=== PATIENT | male | born 1940 | race Caucasian/White ===

== ENCOUNTER → 2023-12-30 09:43 | Outpatient (REF) | payer MEDICARE, SELFPAY | LOC: HWRAD 09:43 | PROVIDERS: ATTENDING PHYSICIAN Specialist; FAMILY PHYSICIAN Family Medicine | DX: N28.1 Cyst of kidney, acquired (principal); N18.31 Chronic kidney disease, stage 3a | CPT/HCPCS: 76770 ==

== ENCOUNTER 2025-04-05 10:20 | Outpatient (RCR) | payer MEDICARE, SELFPAY | END 2025-04-05 23:59 | disposition home or self-care (01) | LOC: CRHB 10:20 | PROVIDERS: ATTENDING PHYSICIAN Transplant Surgery | DX: I50.22 Chronic systolic (congestive) heart failure (principal) | CPT/HCPCS: G0422; G0423 ==

== ENCOUNTER 2025-04-06 14:41 | Inpatient (IN) | payer MEDICARE, SELFPAY ==
[2025-04-06] VITALS (33 sets, daily range): BP systolic 61–146; BP diastolic 40–124; BMI 24.0
--- NOTE | 2025-04-06 09:09 | ED.GENMED ---
History of Present Illness
General
Chief Complaint: Heart Rate Problem
Source: patient
Exam Limitations: none
Time Seen by Provider: 04/06/25 09:06
Nursing documentation reviewed up to this point in time: agreed with
History of Present Illness
History of Present Illness:
The patient is a pleasant 85-year-old man with a past medical history of atrial fibrillation with a pacemaker defibrillator, who reports 2 to 3 days of increased work of breathing, especially on exertion. Patient reports he has gained about 6 to 7
pounds over the last week and has barely eaten. Patient reports feeling full early. He denies chest pain. He reports increased swelling of both of his legs. Patient reports that he is followed by [facility] and is due to have a right sided
cardiac catheterization this Thursday. Patient reports that yesterday he went to cardiac rehab and noticed that his heart rate became extremely elevated and it took about 20 minutes for his heart rate to come down. Patient reports that overall, his
heart rate has been elevated and it feels as though his heart is pounding.
Past History
Past History
ED Past Medical History: Arrthythmia (Paroxysmal atrial fibrillation anticoagulated on warfarin), CAD and CHF
ED Past Surgical History: Cardiac (CABG x3 July 2016 at [facility])
Social History
Tobacco: Non-smoker
Alcohol: None
Drug: None
Personal:
Living: with family
Employment: Other
Family History
Family History: Other
Review of Systems
Review of Systems
Allergies reviewed?: Yes
All Other Systems: ROS reviewed and negative except as documented in HPI and ROS
Constitutional: Reports no symptoms
EENT: Reports no symptoms
Respiratory: Reports trouble breathing
Cardiac: Reports palpitations
ABD/GI: Reports no symptoms
: Reports no symptoms
Musculoskeletal: Reports edema
Skin: Reports no symptoms
Neurological: Reports no symptoms
Endocrine: Reports no symptoms
Hematologic/Lymphatic: Reports no symptoms
Psychiatric: Reports no symptoms
Phy Exam
Physical Exam
Physical Exam:
Physical Exam
General: no apparent distress, not acutely ill
Neck: supple. no meningeal signs. normal psoterior pharynx
Heart: Irregular, tachycardic
Lungs: no acute respiratory distress. Left lower lobe crackles. No wheezing
Abdomen: normal bowel sounds. not tender. no CVAT
Neuro: alert and oriented. no focal neurological deficits
Skin: no rash
Psychiatric: well kept. interactive and cooperative
Extremities: 1+ pitting edema in bilateral ankles up to knees bilaterally. Negative Homans' sign.
Course
Orders/Labs/Results
Orders:
Orders
04/06/25 08:55
Electrocardiogram (*1) Urgent
Reason for Study: Tachycardia
EKG- Treatment ONCE
04/06/25 09:29
CR Chest Portable - 1 View Urgent
Comment:
Reason For Exam: SOB
Reason Study Needs to be Portable: Patient Unstable
04/06/25 09:47
Complete Blood Count/With Diff Urgent
Comprehensive Metabolic Panel Urgent
NT-proBNP Urgent
Comment: ADD ON
PTT Urgent
Prothrombin Time Urgent
Troponin I Urgent
04/06/25 10:05
Add On- LAB Urgent
Tests Added?: Pro-BNP
04/06/25 10:49
Calcium Gluconate 1,000 mg IV NOW STA
Dextrose 50%-Water [Dextrose 50% Syringe] 12.5 grams IV [id number] PRN
Dextrose 50%-Water [Dextrose 50% Syringe] 25 grams IV NOW STA
Insulin Human Regular [Novolin R] 10 units IV NOW STA
Bedside Glucose PRE IV Insulin- HyperK+ NOW
04/06/25 12:19
Bedside Glucose POST IV Insulin- HyperK+ Q1HX2,Q2HX2
04/06/25 13:19
Potassium Urgent
Comment: draw 2 hours after regular insulin IV administration
Abnormal Lab Results
04/06/25
09:47
RBC 4.45 L 10^6/uL
(4.70-6.10)
MCV 98.0 H fL
(80.0-94.0)
MCH 32.8 H pg
(27.0-31.0)
RDW 15.6 H %
(11.5-14.5)
Plt Count 98 L 10^3/uL
(130-400)
MPV 11.2 H fL
(7.4-10.4)
Absolute Lymphs (auto) 0.6 L 10^3/uL
(1.2-3.4)
Absolute Monos (auto) 0.7 H 10^3/uL
(0.1-0.6)
Neutrophils % 79.5 H %
(42.2-75.2)
Lymphocytes % 9.3 L %
(20.5-51.1)
Monocytes % 10.0 H %
(1.7-9.3)
PT 33.0 H Sec
(11.4-14.6)
APTT 41.4 H Sec
(23.4-35.0)
Sodium 126 L mmol/L
(135-145)
Potassium 5.7 H mmol/L
(3.5-5.1)
Chloride 96 L mmol/L
(98-107)
BUN 43 H mg/dl
(9-20)
Creatinine 2.3 H mg/dL
(0.7-1.3)
Total Bilirubin 1.6 H mg/dl
(0.2-1.3)
AST 74 H U/L
(17-59)
Alkaline Phosphatase 162 H U/L
(38-126)
Troponin I 0.376 H* ng/ml
Total Protein 6.0 L g/dl
(6.3-8.2)
04/06/25 09:47
Vital Signs
Initial and Last Documented VS:
Initial Vital Signs
Temp Pulse Resp Pulse Ox
98.0 F 42 16 96
04/06/25 09:02 04/06/25 09:02 04/06/25 09:02 04/06/25 09:02
Last Documented Vital Signs
Temp Pulse Resp BP Pulse Ox
98.2 F 121 20 122/68 99
04/06/25 09:02 04/06/25 09:15 04/06/25 09:15 04/06/25 09:05 04/06/25 09:34
MDM/Problems Addressed
Differential Diagnosis Includes:
A-fib with RVR, a flutter with RVR, acute on chronic CHF, acute on chronic coronary artery disease
MDM/Problems Addressed:
Patient presents with feelings of a rapid heart rate, increased work of breathing, and bilateral leg swelling
Chronic conditions affecting care: Arrhythmia
Acute Exacerbation and/or Progression of Chronic Illness:
Patient may have acute exacerbation of A-fib with RVR, progressing to CHF.
Acute Exacerbation and/or Progression of Chronic Illness: Cardiomyopathy and Arrhythmia
*Radiology
Radiology exam reviewed: preliminary read by ED provider (Chest x-ray read by me. Cardiomegaly. Possible left lower lobe effusion)
*Pulse Oximetry
SaO2: 96
Oxygen Mode of Delivery: Room air
Patient hypoxic: no
Comment: Patient is not hypoxic.
*EKG
Interpreted by ED Provider?: Yes
Interpretation: abnormal
Comparison EKG: changes noted
Rate: tachycardiac
Rhythm: ventricular paced
Crowder: left axis deviation
Interval: normal interval
QRS Pattern: wide non-specific
Ischemia: non-specific ST changes
*Chief Nursing Executive Interpretation
Rate: tachycardiac
Interpretation: abnormal
Rhythm: ventricular paced
*Critical Care Note
Total Time (30-74mins, 75-104mins- exclusive of procedures): 46 minutes
comment:
46 minutes critical care given to the patient including reviewing his interrogation report from his pacemaker defibrillator, reviewing his lab work, EKG, frequent reassessments of his heart rate and blood pressure, as well as speaking to the
hospitalist, patient and
Data Reviewed
Review of Other/Old Records Reveals: Testing (Cardiac catheterization 2016 showed three-vessel disease)
Source: patient and spouse
Patient Management
Social determinants of health affecting care: Living situation and Strong social support
Discussion with other providers: Hospitalist and Other (Sherri Slaughter)
Escalation/DeEscalation of care consider admission/obs:
Patient presents with acute on chronic CHF likely due to atrial tachycardia, as well as acute hyponatremia, acute hyperkalemia and acute renal failure.
Cardiology agreed to see patient on consult.
ED Attending Note
-
Portions of this chart may have been created with voice recognition software.� Occasional wrong word or��sound alike� substitutions may have occurred due to the inherent limitations of voice recognition software.
Discharge Plan
Departure
Patient Disposition: Admit
Date of Disposition: 04/06/25
Time of Disposition: 10:48
Admit to: Telemetry
Presentation/result/management discussed w/ accepting MD/DO: Hospitalist
Patient with high blood pressure during this ER visit?: No
Condition: Fair
Covid-19: Not Applicable
Discharge Problem:
Atrial tachycardia, Acute on chronic systolic CHF (congestive heart failure), Acute hyponatremia, Acute hyperkalemia, Acute renal failure
Prescriptions:
No Action
atorvastatin 80 MG tablet
80 mg PO QPM
amiodarone [Pacerone] 200 MG tablet
100 mg PO DAILY
warfarin [Jantoven] 3 MG tablet
1.5 mg PO SuTuThSa@1900
warfarin [Jantoven] 3 MG tablet
3 mg PO MOWEFR@1900
metoprolol succinate 25 MG tablet extended release 24 hr
25 mg PO BID
cholecalciferol (vitamin D3) [Vitamin D3] 1,000 UNIT capsule
1,000 unit PO DAILY@1200
eplerenone 25 MG tablet
25 mg PO DAILY@1200
doxycycline hyclate 50 mg Capsule
50 mg PO DAILY@1200
acetaminophen [Tylenol Extra Strength] 500 mg Tablet
500 mg PO TID
levothyroxine [Synthroid] 75 mcg Tablet
75 mcg PO DAILY
melatonin 5 mg Tablet
5 mg PO HS
Jardiance 10 mg Tablet
10 mg PO DAILY@1200
sacubitril-valsartan [Entresto] 97-103 mg Tablet
1 tab PO BID
aspirin 81 mg Tablet,Delayed Release (Dr/Ec)
81 mg PO DAILY
Interventions
Interventions:
*Risk Screen - Suicide Last Done: 04/06/25 09:02
*Neglect/Abuse Screening Last Done: 04/06/25 09:02
*ED- Fall Risk Assessment Last Done: 04/06/25 09:02
*ED COVID-19 Vaccine History Last Done: 04/06/25 09:02
ED- Cardiac Assessment Last Done: 04/06/25 09:34
ED- Pulmonary Assessment Last Done: 04/06/25 09:34
Discharge Date and Time
Print Language: SLOVENIAN
[2025-04-06 10:04] LABS: Hematocrit 43.6 % (39.0-52.0); Hemoglobin 14.6 g/dL (13.0-18.0); Mean Corp Hgb Conc. 33.5 g/dL (33.0-37.0); Mean Corpuscular Volume 98.0 fL (80.0-94.0); Nucleated Red Blood Cells % 0 % (-); Red Cell Dist. Width 15.6 % (11.5-14.5)
[2025-04-06 10:06] LABS: APTT 41.4 Sec (23.4-35.0); INR 3.19; PT 33.0 Sec (11.4-14.6)
[2025-04-06 10:11] LABS: ALT (SGPT) 39 U/L (0-50); AST (SGOT) 74 U/L (17-59); Albumin 4.0 g/dl (3.5-5.0); Alkaline Phosphatase 162 U/L (38-126); Blood Urea Nitrogen 43 mg/dl (9-20); Calcium 10.0 mg/dl (8.4-10.2); Carbon Dioxide 22 mmol/L (22-30); Chloride 96 mmol/L (98-107); Glucose 88 mg/dl (70-99); Potassium 5.7 mmol/L (3.5-5.1); Sodium 126 mmol/L (135-145); Total Protein 6.0 g/dl (6.3-8.2); eGFR 27.32
[2025-04-06 10:18] LABS: Platelet Count 98 10^3/uL (130-400)
[2025-04-06 10:21] LABS: Troponin I 0.376 ng/ml
[2025-04-06 11:05] LABS: Glucose - Point of Care 75 mg/dl (70-99)
--- NOTE | 2025-04-06 11:05 | CON.CAR ---
Addendum entered and electronically signed by Sherri Slaughter MD 04/06/25 14:07:
I saw and evaluated the patient, and I provided the substantive portion of the medical decision making.
I reviewed and agree with the note by Ora Power and it accurately reflects our care.
I personally performed the medical decision making of the this encounter and my assessment and plan is below:
85 y/o male (follows with Dr. Francie Gunn heart failure and EP Dr. 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 Rodriges) who is here for evaluation of worsened exercise tolerance and
abnormal heart rhythm. He is in cardiac rehab and has had a decline in his exercise tolerance, he is undergoing evaluation with Dr Moses and initial plan was for RHC on Thursday. However, at CR yesterday HR was elevated and given his history of
af he called his team at [facility]. Interrogation this morning showed arrhythmia and he was directed to the ED. He also reports poor appetite and weight gain of 5lbs despite poor po intake.
ON exam he is dyspneic with conversation but lying flat. He has bibasilar rails. RRR no murmur rubs or gallops. Mild bilateral 1+ pitting edema is noted. EKG on arrival showed V paced set at 110 bpm.
[facility] interrogation was reviewed showed atrial tachycardia with bi -V pacing.
Test chest x-ray showed small left pleural effusion. Possible left upper lobe round pneumonia or mass, follow-up recommended.
Left concerning for hyponatremia and 126 potassium 5.7 BUN 43 creatinine 2.3 last check in 2019 was 1.3. AST elevated to 74 troponin 0.376 proBNP 25255 INR 3.19
Overall, he presents in acute heart failure exacerbation with known reduced Doose ejection fraction of 29%. This may be precipitated by recurrent atrial arrhythmias. During our examination he converted to sinus rhythm with PACs. Will arrange for
right heart catheterization today to help guide our diuresis given his severe exacerbation in the setting of hyponatremia, hyperkalemia and acute kidney injury. This will also allow us to assess whether or not I inotropes will be needed for
successful diuresis likely his acute kidney injury is due to acute heart failure exacerbation and hopefully will improve with diuresis. In regards to his arrhythmias: Atrial tachycardia/flutter seen on device interrogation. He was taking low-dose
amiodarone. Will need to be reloaded. Will continue with warfarin and keep INR between 2 and 3.
This is a high risk situation with severe systolic dysfunction and acute kidney injury and electrolyte abnormalities.
I did reach out to his doctor at [facility] Dr. Sosa and update him. He was agreeable with our plan.
Original Note:
Consultation
Consultation Request
Date/Time Consultation Requested: 04/06/25 1045
Date/Time Consultation Performed: 04/06/25 1100
Requesting Provider: Dr. Vora
Performing Provider: Ora SALAZAR for Dr. Slaughter
Reason for Consultation: CHF, AFIB
Medical History
-
Chief Complaint: SOB
History of Present Illness:
85 y/o male (follows with Dr. Sosa- [facility] A heart failure and EP Dr. 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 Rodriges) who is here for evaluation of worsened KENNEDY. Briefly, since January,
he has been feeling like he is unable to do his normal treadmill routine and has been going downhill ever since. He was scheduled for a RHC at [place] upcoming. Over the past few days, he has noticed his KENNEDY is worse such that he cannot even walk
through the kitchen without being SOB. No orthopnea. Has had 5 lb weight gain and LE is noted. He also noticed his HR was fast at cardiac rehab and on home monitor as well. On arrival, he is seen to be in AFIB with RVR. He laso has hyponatremia,
hyperkalemia, and TAHIRA. He is in no distress at the time of my assessment. His is at bedside. She is a volunteer here.
Past Medical History
Past Medical History: Arrhythmias, CAD, CHF and Other (as above)
Social History
Personal:
Living: With Family
Family History
Family History: Reviewed & Not Pertinent
Allergies / Home Medications
Allergy/AdvReac Type Severity Reaction Status Date / Time
No Known Allergies Allergy Verified 10/19/18 11:20
�Medication �Instructions �Recorded �Confirmed �Type
amiodarone 200 mg tablet (Pacerone) 100 mg PO DAILY 12/01/17 04/06/25 History
atorvastatin 80 mg tablet 80 mg PO QPM 12/01/17 04/06/25 History
cholecalciferol (vitamin D3) 25 1,000 unit PO DAILY@119912/01/17 04/06/25 History
mcg (1,000 unit) capsule (Vitamin
D3)
eplerenone 25 mg tablet 25 mg PO DAILY@119912/01/17 04/06/25 History
metoprolol succinate 25 mg 25 mg PO BID 12/01/17 04/06/25 History
tablet,extended release 24 hr
warfarin 3 mg tablet (Jantoven) 1.5 mg PO SuTuThSa@1900 12/01/17 04/06/25 History
warfarin 3 mg tablet (Jantoven) 3 mg PO MOWEFR@1900 12/01/17 04/06/25 History
acetaminophen 500 mg tablet 500 mg PO TID 04/06/25 04/06/25 History
(Tylenol Extra Strength)
aspirin 81 mg tablet,delayed 81 mg PO DAILY 04/06/25 04/06/25 History
release
doxycycline hyclate 50 mg capsule 50 mg PO DAILY@119904/06/25 04/06/25 History
empagliflozin 10 mg tablet 10 mg PO DAILY@119904/06/25 04/06/25 History
(Jardiance)
levothyroxine 75 mcg tablet 75 mcg PO DAILY 04/06/25 04/06/25 History
(Synthroid)
melatonin 5 mg tablet 5 mg PO HS 04/06/25 04/06/25 History
sacubitril 97 mg-valsartan 103 mg 1 tab PO BID 04/06/25 04/06/25 History
tablet (Entresto)
Review of Systems
-
History Source: Patient
All other systems: Negative unless noted
Constitutional: Weight Gain
Respiratory: Trouble Breathing
Musculoskeletal: Edema
Physical Exam
Vital Signs
Temp Pulse Resp BP Pulse Ox
98.2 F 121 20 122/68 99
04/06/25 09:02 04/06/25 09:15 04/06/25 09:15 04/06/25 09:05 04/06/25 09:34
Lab Results
04/06/25 09:47
04/06/25 13:19
Troponin I 0.376 ng/ml H* 04/06/25 09:47
Tlu-H-Xbududkkyrg Pept 86986 pg/ml 04/06/25 09:47
Physical Exam
General: Well Developed, Well Nourished and No Apparent Distress
HEENT: Normocephalic and Anicteric
Respiratory: Crackles (left base)
Cardiac: Irregular Rhythm
Musculoskeletal: Edema (mild BLE edema)
Skin: Warm
Neuro: AO x 3
Psych: Calm
Impression / Plan
-
Acjoa-nm-lnrleup HFrEF:
-high risk diagnosis with addition of TAHIRA and electrolyte abnormalities as below, in this patient with advanced CHF
-will need IV diuresis, which requires intensive monitoring. Plan was for RHC and we will do it here today to help us guide diuresis plan.
-update echo
ICM EF 29%:
-follows with advanced CHF at [place]
-INTELLIGENCE SPECIALIST-D in place (BS)- interrogation done in ER - see below
-on BB, SGLT2I, ARNI, and MRA
PAF:
-device interrogation reviewed with EP and shows atrial tachycardia/poss aflutter. Now back in SR without intervention.
-on amiodarone 100 mg PO daily as OP. Will will reload with IV amiodarone. This requires intensive monitoring.
-reports he has not had any low INR's in past few months (gets them about once per month)- managed at [facility]. On warfarin- continue this. INR 3.19 today.
Hyperkalemia:
-being treated in ED
Hyponatremia:
-needs monitoring with diuresis
TAHIRA on CKD:
-last OP creatinine in [facility] : 1.7
-Dr. Rodriges is moss bleacher
-RHC with diuresis as above
CAD with hx CABG:
-no CP
-continue ASA, statin, BB
Abnormal CXR:
-CXR: Small left pleural effusion. Subtle rounded opacity in the left upper lobe, round pneumonia or mass. Follow-up recommended. Management per IM.
Abnormal troponin:
-suspect acute, non-ischemic myocardial injury in setting of CHF, renal dysfunction
-can trend to peak and check echo
-no CP
Data Reviewed
-
EKG: Tracing Personally Visualized and interpreted (tachycardia 110 BPM, irregular, v-paced/wide complex- suspected AFIB with RVR- to review with MD)
Radiology: Report Reviewed by me (CXR: Small left pleural effusion. Subtle rounded opacity in the left upper lobe, round pneumonia or mass. Follow-up recommended.)
Medical Tests (Nuc Med, Echo etc): Report Reviewed by me (Echo 10/28/24: EF 29%)
Labs: Labs Reviewed by me
Old Records: Reviewed (Dr. Moses note January 06, 2025- where I got much of PMH (see above))
[2025-04-06] MEDS: CALCIUM GLUCONATE 1000 MG IV (11:11)
[2025-04-06] MEDS: DEXTROSE 50% SYRINGE 25 GRAMS IV (11:11)
[2025-04-06] MEDS: NOVOLIN R 5 UNITS IV (11:12)
[2025-04-06 12:10] LABS: Glucose - Point of Care 112 mg/dl (70-99)
--- NOTE | 2025-04-06 13:02 | HPS.HSE ---
Family Physician
-
Family Physician: Pool Holloway
Chief Complaint
-
CHF, AFIB
History of Present Illness
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 Patient reports that since January he is unable to perform his usual exercise
routine (treadmill). Over past few days, he is having worsening KENNEDY and cannot walk through his kitchen without being SOB. Reports 5 lb weight gain and LE. No orthopnea. Today noted a fast HR at cardiac rehab and was sent to ER. In ER noted to have
rapid AFib and treated with IV Amiodarone. Labs showed Hyponatremia and TAHIRA. He was admitted to IVU and for RHC today.
Medical History
Past Medical History
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
Past Surgical History: Reports Cardiac
Social History
Tobacco: Non-smoker
Alcohol: None
Personal:
Living: With Family
Employment: Retired
Family History
Family History: Not pertinent
Allergies / Home Medications
Allergies reflects when Allergies were last updated in [facility].
Home Medications with original date entered in [facility]
Allergy/Medication List:
Allergies
Allergy/AdvReac Type Severity Reaction Status Date / Time
No Known Allergies Allergy Verified 10/19/18 11:20
Home Medications
amiodarone 200 mg tablet (Pacerone) 100 mg PO DAILY Arrhythmia 12/01/17
atorvastatin 80 mg tablet 80 mg PO QPM High Cholesterol 12/01/17
cholecalciferol (vitamin D3) 25 mcg (1,000 unit) capsule (Vitamin D3) 1,000 unit PO DAILY@1200 Supplement 12/01/17
eplerenone 25 mg tablet 25 mg PO DAILY@1200 Heart Failure 12/01/17
metoprolol succinate 25 mg tablet,extended release 24 hr 25 mg PO BID Heart Failure 12/01/17
warfarin 3 mg tablet (Jantoven) 1.5 mg PO SuTuThSa@1900 Blood Clot Prevention/Tx 12/01/17
warfarin 3 mg tablet (Jantoven) 3 mg PO MOWEFR@1900 Blood Clot Prevention/Tx 12/01/17
acetaminophen 500 mg tablet (Tylenol Extra Strength) 500 mg PO TID Pain 04/06/25
aspirin 81 mg tablet,delayed release 81 mg PO DAILY Blood Clot Prevention/Tx 04/06/25
doxycycline hyclate 50 mg capsule 50 mg PO DAILY@1200 Infection 04/06/25
empagliflozin 10 mg tablet (Jardiance) 10 mg PO DAILY@1200 Heart Failure 04/06/25
levothyroxine 75 mcg tablet (Synthroid) 75 mcg PO DAILY Thyroid 04/06/25
melatonin 5 mg tablet 5 mg PO HS Sleep 04/06/25
sacubitril 97 mg-valsartan 103 mg tablet (Entresto) 1 tab PO BID Heart Failure 04/06/25
Review of Systems
-
A 12 point ROS was completed and negative except as noted: Yes
Physical Exam
Vital Signs
Vital Signs
Temp Pulse Resp BP Pulse Ox
98.2 F 122 20 95/68 99
04/06/25 09:02 04/06/25 11:30 04/06/25 11:30 04/06/25 11:00 04/06/25 09:34
Physical Exam
General: No Apparent Distress
HEENT: NormoCephalic and Anicteric
Respiratory: Crackles
Cardiac: Irregular Rhythm
GI: Soft and Non Tender
Neuro: AO x 3
Psych: Calm
Laboratory Results
-
04/06/25 09:47
04/06/25 13:39
Laboratory Results
PT 33.0 Sec (11.4-14.6) H 04/06/25 09:47
INR 3.19 04/06/25 09:47
APTT 41.4 Sec (23.4-35.0) H 04/06/25 09:47
Total Bilirubin 1.6 mg/dl (0.2-1.3) H 04/06/25 09:47
AST 74 U/L (17-59) H 04/06/25 09:47
ALT 39 U/L (0-50) 04/06/25 09:47
Alkaline Phosphatase 162 U/L (38-126) H 04/06/25 09:47
Troponin I 0.376 ng/ml H* 04/06/25 09:47
Data Reviewed
-
Lab Data: Labs Reviewed by me
Impression/Plan
-
Assessment:
Dkfty-kn-jyeqjwb HFrEF (NHYA class II to IV)
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
- life threatening diagnosis with concurrent TAHIRA, electrolyte abnormalities, known advanced CHF
- continue IV Lasix - requires intensive monitoring of I/Os, weights, lytes. Dose will be decided post-RHC
- GMDT: BB/SGLT2/ARNI/MRA
- Echo
- RHC today to assess volume status
- CBC cards consulted
Parox A. Fib with RVR
- device interrogation per Cards showed atrial tachycardia/poss aflutter. Now back in SR without intervention.
- continue IV Amiodarone - requires intensive monitoring
- Continue Coumadin, f/u INRs
nonischemic myocardial injury in setting of CHF, renal failure
- trend to peak
Acute Hyperkalemia
- s/p temporization in ER
- repeat level at 3pm
Acute hypervolemic hyponatremia
TAHIRA on CKD3a, cardiorenal in setting of acute CHF
- Consult Nephrology
- await RHC
- follow labs
CAD with hx CABG:
- no CP
- continue ASA, statin, BB
Abnormal CXR:
- CXR: Small left pleural effusion. Subtle rounded opacity in the left upper lobe, round pneumonia or mass.
- consider CT chest
- no infectious signs/symptoms
Thrombocytopenia
- monitor, no signs of bleeding
Hypothyroidism - continue replacement
DVT ppx: Coumadin (hold pending RHC)
Code: Full
[2025-04-06] MEDS: CORDARONE 103 MG IV (13:04)
[2025-04-06 13:10] LABS: Glucose - Point of Care 75 mg/dl (70-99)
[2025-04-06] MEDS: CORDARONE 518 MG IV (14:02)
[2025-04-06 15:06] LABS: Glucose - Point of Care 72 mg/dl (70-99)
--- NOTE | 2025-04-06 16:02 | W.CON.NEPH ---
Consultation
-
Date/Time Consultation Requested: April 06, 2025 at 1300
Date/Time Consultation Performed: April 06, 2025 at 3 PM
Requesting Provider: Monique Rowe
Performing Provider: Dr. Bearden
Reason for Consultation: Acute on chronic kidney injury
Medical History
-
Chief Complaint: Acute on chronic kidney injury
History of Present Illness:
85 y/o M, hx of HFrEF, (EF 30%) s/p HUMAN RESOURCE CONSULTANT-D, CAD s/p CABG, PAF on Coumadin, CKD stage 3A - known to [facility] - presents to ER for evaluation of dyspnea of exertion. Is found to have rapid A-fib placed on amiodarone drip. He has been having
shortness of breath difficulty talking for the last couple days he has been doing cardiac rehab and was noted to be tachycardic and sent to the emergency room..
Echocardiogram done today showed ejection fraction down to 13%.
Renal consult for acute kidney injury creatinine of 2.3 from .13 January 2025
Follows outpatient with Dr. Rodriges
Past Medical History
hx of HFrEF, (EF 30%) s/p HUMAN RESOURCE CONSULTANT-D, CAD s/p CABG, PAF on Coumadin, CKD stage 3A
Social History
Tobacco: Non-Smoker
Alcohol: None
Family History
Family History: Not Pertinent
Allergies / Home Medications
Allergy/AdvReac Type Severity Reaction Status Date / Time
No Known Allergies Allergy Verified 10/19/18 11:20
�Medication �Instructions �Recorded �Confirmed �Type
amiodarone 200 mg tablet (Pacerone) 100 mg PO DAILY Arrhythmia 12/01/17 04/06/25 History
atorvastatin 80 mg tablet 80 mg PO QPM High Cholesterol 12/01/17 04/06/25 History
cholecalciferol (vitamin D3) 25 1,000 unit PO DAILY@1200 Supplement 12/01/17 04/06/25 History
mcg (1,000 unit) capsule (Vitamin
D3)
eplerenone 25 mg tablet 25 mg PO DAILY@1200 Heart Failure 12/01/17 04/06/25 History
metoprolol succinate 25 mg 25 mg PO BID Heart Failure 12/01/17 04/06/25 History
tablet,extended release 24 hr
warfarin 3 mg tablet (Jantoven) 1.5 mg PO SuTuThSa@1900 Blood Clot 12/01/17 04/06/25 History
Prevention/Tx
warfarin 3 mg tablet (Jantoven) 3 mg PO MOWEFR@1900 Blood Clot 12/01/17 04/06/25 History
Prevention/Tx
acetaminophen 500 mg tablet 500 mg PO TID Pain 04/06/25 04/06/25 History
(Tylenol Extra Strength)
aspirin 81 mg tablet,delayed 81 mg PO DAILY Blood Clot 04/06/25 04/06/25 History
release Prevention/Tx
doxycycline hyclate 50 mg capsule 50 mg PO DAILY@1200 Infection 04/06/25 04/06/25 History
empagliflozin 10 mg tablet 10 mg PO DAILY@1200 Heart Failure 04/06/25 04/06/25 History
(Jardiance)
levothyroxine 75 mcg tablet 75 mcg PO DAILY Thyroid 04/06/25 04/06/25 History
(Synthroid)
melatonin 5 mg tablet 5 mg PO HS Sleep 04/06/25 04/06/25 History
sacubitril 97 mg-valsartan 103 mg 1 tab PO BID Heart Failure 04/06/25 04/06/25 History
tablet (Entresto)
Review of Systems
-
Shortness of breath weight gain lower extremity edema difficulty speaking
All other systems: Negative unless noted
Physical Exam
Vital Signs
Vital Signs
Temp Pulse Resp BP Pulse Ox
98.2 F 110 20 92/67 100
04/06/25 09:02 04/06/25 14:00 04/06/25 14:00 04/06/25 13:00 04/06/25 14:00
Lab Results
WBC 6.6 10^3/uL (4.8-10.8) 04/06/25 09:47
RBC 4.45 10^6/uL (4.70-6.10) L 04/06/25 09:47
Hgb 14.6 g/dL (13.0-18.0) 04/06/25 09:47
Hct 43.6 % (39.0-52.0) 04/06/25 09:47
Plt Count 98 10^3/uL (130-400) L 04/06/25 09:47
Sodium 126 mmol/L (135-145) L 04/06/25 09:47
Potassium Cancelled 04/06/25 13:39
Chloride 96 mmol/L (98-107) L 04/06/25 09:47
Carbon Dioxide 22 mmol/L (22-30) 04/06/25 09:47
BUN 43 mg/dl (9-20) H 04/06/25 09:47
Creatinine 2.3 mg/dL (0.7-1.3) H 04/06/25 09:47
eGFR 27.32 04/06/25 09:47
Glucose 88 mg/dl (70-99) 04/06/25 09:47
Calcium 10.0 mg/dl (8.4-10.2) 04/06/25 09:47
Psy-U-Iizdhztrqva Pept 79348 pg/ml 04/06/25 09:47
Albumin 4.0 g/dl (3.5-5.0) 04/06/25 09:47
Physical Exam
General no acute distress
HEENT no cephalic atraumatic extraocular muscle intact no scleral icterus no JVD neck supple
lungs coarse breath sounds l
heart regular S1-S2 positive with ectopy
abdomen soft nontender positive bowel sounds
extremities +2 edema pulses present bilateral
Neurologically nonfocal alert and oriented x 3
Skin no lesions no abrasions no petechiae
Psych normal affect no bizarre behavior
Data Reviewed
-
Radiology: Image Personally Visualized and interpreted
Medical Tests (Nuc Med, Echo etc): Image Personally Visualized and interpreted
Labs: Labs Reviewed by me, Discussed with Physician, Discussed with Patient and Discussed with Family
Assessment/Plan
-
85 y/o M, hx of HFrEF, (EF 30%) s/p HUMAN RESOURCE CONSULTANT-D, CAD s/p CABG, PAF on Coumadin, CKD stage 3A - known to [facility] - presents to ER for evaluation of dyspnea of exertion. Is found to have rapid A-fib placed on amiodarone drip. He has been having
shortness of breath difficulty talking for the last couple days he has been doing cardiac rehab and was noted to be tachycardic and sent to the emergency room..
Echocardiogram done today showed ejection fraction down to 13%.
Renal consult for acute kidney injury creatinine of 2.3 from 1.13 January 2025
Follows outpatient with Dr. Rodriges
Impression.
Acute on chronic kidney disease with a baseline creatinine of 1.6-1.7 outpatient January 2025
Acute on chronic CHF.
CAD
Hyperkalemia 5.7
Hyponatremia 126
Plan.
Right heart cath to be done today
Likely inotropic support
Fluid restrict
Sodium restrict
Discussed with the patient and his at the bedside
In the meantime I will order IV Lasix 80 mg twice daily
--- NOTE | 2025-04-06 17:06 | ITS.CL.PN ---
Box [employer] - Procedure Note
Procedure
Procedure Note:
CARDIAC CATHETERIZATION REPORT
Date of Procedure: 04/06/2025
Referring: Dr. Karla Slaughter MD
Indication: Cardiogenic shock
PROCEDURE: right heart catheterization
ACCESS: 5F right antecubital vein (closure: manual hemostasis)
CATHETERS: 5F [place]
MODERATE SEDATION: 25 minutes of moderate sedation was utilized. An independent general medical practitioner was present to assist with and help manage the patient's level of consciousness and physiologic status.
HEMODYNAMIC DATA
SBP 101/72 (mean 82) mmHg
RA 27 mmHg
RV 51/19 (EDP 23) mmHg
PA 52/38 (mean 40) mmHg
PCWP 30 mmHg
SaO2 100%
SvO2 56.0%
Hb 15.5 g/dL
CO/CI 2.3/1.35 L/min/m2
SVR 1881 dsc*-5
PVR 4.3 [place] units
RADIATION: dose 11.34 mGy; DAP 1.67 Gy*cm2; fluoroscopy time 3.7 min
CONCLUSIONS
1. 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
2. PA pulsatility noted to be significantly decreased on short R-R intervals suggesting hemodynamic significance of atrial arrhythmia.
RECOMMENDATIONS
1. Aggressive diuresis for goal 1 to 2 L negative with close monitoring of electrolytes and renal function
2. Initiation of inotropy he with milrinone 0.125 with up titration to 0.25 after several hours of tolerated with adequate blood pressure
3. Continue amiodarone load to hopefully reduce arrhythmia burden
Copy to: Dr. Silvino Tavarez MD (system archive analyst)
Signed: Ramon Matute MD, PhD
[2025-04-06 17:48] LABS: Magnesium 2.0 mg/dl (1.6-2.3)
[2025-04-06 17:59] LABS: Blood Urea Nitrogen 42 mg/dl (9-20); Calcium 9.2 mg/dl (8.4-10.2); Carbon Dioxide 20 mmol/L (22-30); Chloride 100 mmol/L (98-107); Glucose 84 mg/dl (70-99); Potassium 4.7 mmol/L (3.5-5.1); Sodium 126 mmol/L (135-145); eGFR 30.47
[2025-04-06] MEDS: PRIMACOR 20 MG 100 IV (18:03)
[2025-04-06 18:13] LABS: Glucose - Point of Care 181 mg/dl (70-99)
[2025-04-06] MEDS: LASIX 80 MG IV (18:18)
[2025-04-06] MEDS: LIPITOR 80 MG PO (18:19)
[2025-04-06] MEDS: TYLENOL 500 MG PO ×2 (18:19→21:26)
--- NOTE | 2025-04-06 18:32 | CON.INTV ---
Consultation
Consultation Request
Date/Time Consultation Requested: 04/06/2025
Date/Time Consultation Performed: 04/06/2025
Medical History
-
Chief Complaint: Shortness of breath, increasing pedal edema
History of Present Illness:
Patient is a 85-year-old gentleman with longstanding history of severe cardiomyopathy, last EF 30% s/p COLLECTIONS PROFESSIONAL-D, coronary artery disease s/p coronary artery bypass graft, paroxysmal atrial fibrillation on chronic anticoagulation who follows up with
[place] [facility], presented to emergency room for worsening shortness of breath. Patient reports that over the last few weeks he has been developing increasing swelling of his lower extremities, decreasing appetite, weight gain as well as orthopnea.
Patient today was at cardiac rehab and noted to have tachycardia and was referred to emergency room for further evaluation. In the emergency room he was noted to have atrial fibrillation which was treated with IV amiodarone. He was subsequently
seen by cardiology service and was taken to [facility] and had a right heart cath performed which was suggestive of pre and post capillary pulmonary hypertension along with significantly elevated biventricular filling pressures consistent with volume
overload. Patient was subsequently admitted to the ICU and intelligence officer consultation was requested for further input.
Past Medical History
Past Medical History: Reports Other (HFrEF, (EF 30%) s/p COLLECTIONS PROFESSIONAL-D, CAD s/p CABG, PAF on Coumadin, CKD stage 3A)
Past Surgical History: Reports Cardiac
Social History
Tobacco: Non-smoker
Alcohol: None
Personal:
Living: With Family
Employment: Retired
Family History
Family History: Not pertinent
Allergies / Home Medications
Allergies / Home Medications
Allergies
Allergy/AdvReac Type Severity Reaction Status Date / Time
No Known Allergies Allergy Verified 10/19/18 11:20
Home Medications
�Medication �Instructions �Recorded �Confirmed �Last Taken �Type
amiodarone 200 mg tablet (Pacerone) 100 mg PO DAILY Arrhythmia 12/01/17 04/06/25 04/05/25 History
atorvastatin 80 mg tablet 80 mg PO QPM High Cholesterol 12/01/17 04/06/25 04/05/25 History
cholecalciferol (vitamin D3) 25 1,000 unit PO DAILY@1200 Supplement 12/01/17 04/06/25 04/05/25 History
mcg (1,000 unit) capsule (Vitamin
D3)
eplerenone 25 mg tablet 25 mg PO DAILY@1199 Heart Failure 12/01/17 04/06/25 04/05/25 History
metoprolol succinate 25 mg 25 mg PO BID Heart Failure 12/01/17 04/06/25 04/05/25 History
tablet,extended release 24 hr
warfarin 3 mg tablet (Jantoven) 1.5 mg PO SuTuThSa@1900 Blood Clot 12/01/17 04/06/25 04/04/25 History
Prevention/Tx
warfarin 3 mg tablet (Jantoven) 3 mg PO MOWEFR@1900 Blood Clot 12/01/17 04/06/25 04/05/25 History
Prevention/Tx
acetaminophen 500 mg tablet 500 mg PO TID Pain 04/06/25 04/06/25 04/05/25 History
(Tylenol Extra Strength)
aspirin 81 mg tablet,delayed 81 mg PO DAILY Blood Clot 04/06/25 04/06/25 04/05/25 History
release Prevention/Tx
doxycycline hyclate 50 mg capsule 50 mg PO DAILY@1200 Infection 04/06/25 04/06/25 04/05/25 History
empagliflozin 10 mg tablet 10 mg PO DAILY@1200 Heart Failure 04/06/25 04/06/25 04/05/25 History
(Jardiance)
levothyroxine 75 mcg tablet 75 mcg PO DAILY Thyroid 04/06/25 04/06/25 04/06/25 History
(Synthroid)
melatonin 5 mg tablet 5 mg PO HS Sleep 04/06/25 04/06/25 04/05/25 History
sacubitril 97 mg-valsartan 103 mg 1 tab PO BID Heart Failure 04/06/25 04/06/25 04/05/25 History
tablet (Entresto)
Review of Systems
-
Hematologic/Lymphatic: Other (All 14 systems reviewed and negative except as stated above in the history of present illness.)
Vitals / Labs / Diagnostic Testing
Vital Signs
Temp Pulse Resp BP Pulse Ox
98.2 F 116 22 98/72 98
04/06/25 09:02 04/06/25 18:18 04/06/25 16:00 04/06/25 15:45 04/06/25 16:00
Lab Data
04/06/25 09:47
Laboratory Results
04/06/25
09:47
PT 33.0 H
INR 3.19
APTT 41.4 H
Diagnostic Testing:
Physical Exam
-
HEENT: Normocephalic
Cardiovascular: S1/S2 and Peripheral Edema (Bilateral pedal edema 2+)
Respiratory: Rales (Few inspiratory rales in posterior bases)
GI: Soft and Non Distended
Neurology: Awake and Alert
Skin: Warm
General: Comfortable
Assessment
-
#1. Acute on chronic heart failure with reduced ejection fraction with cardiogenic shock
- Patient has severely reduced ejection fraction, down to 13% on today's echocardiogram
- Right heart cath suggestive of severely elevated filling pressures with pulmonary capillary wedge pressure of 30 and a cardiac index of only 1.3
- Initiate milrinone as recommended by cardiology service, continue Lasix IV with the goal of net -1 L over 24 hours
- Borderline blood pressure might limit diuresis
#2. Paroxysmal atrial fibrillation with RVR, with concern for atrial tachycardia with paced rhythm today
- Amiodarone infusion has been started, will continue
- Continue cardiac telemetry
- Monitor potassium and magnesium level closely
- Continue anticoagulation with Coumadin
#3. TAHIRA with underlying chronic kidney disease with hyponatremia.
- Suspect this is cardiorenal syndrome. Significantly elevated pulmonary capillary wedge pressure with bilateral pedal edema and worsening renal function
- Continue milrinone as well as IV Lasix and monitor input and output closely
- Hyponatremia is related to underlying hypervolemia, anticipate improvement with aggressive diuresis and milrinone infusion
- Nephrology service on case, serial labs
#4. History of coronary artery disease s/p coronary artery bypass graft
- Continue aspirin, metoprolol if tolerated by blood pressure, statins
- Minimally elevated troponin noted, no chest pain, likely in the setting of decompensated heart failure
- Cardiology service on case
Other medical diagnoses:
- Hypothyroidism
- Thrombocytopenia, mild
DVT prophylaxis. Continue anticoagulation with Coumadin. INR 3.19.
Critical Care time 62 mins -- The patient is admitted for acute critical illness for the treatment of vital organ failure and/or prevention of further life-threatening conditions. Total care includes time spent in review of history, physical exam,
medications, hemodynamic/ventilator parameters, laboratory data, imaging and discussion with house staff, pharmacy, respiratory therapy, occupational therapy department chair, and nursing.
Data:
CXR 03/2025: Small left pleural effusion.
Subtle rounded opacity in the left upper lobe, round pneumonia or mass. Follow-up recommended.
RHC 03/2025: 1. 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
2. PA pulsatility noted to be significantly decreased on short R-R intervals suggesting hemodynamic significance of atrial arrhythmia.
ECHO 03/2025: 1. Left ventricular ejection fraction is severely reduced with an ejection fraction of 13 % by Paulson's biplane method of discs.
2. Stage I diastolic dysfunction suggestive of abnormal relaxation.
3. Right ventricular systolic function is moderately decreased.
4. Pleural effusion present.
5. No significant valve disease.
6. No prior study available for comparison.
[2025-04-06 18:59] LABS: Troponin I 0.278 ng/ml
--- NOTE | 2025-04-06 19:03 | PTCARENOTE ---
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 assessments per work list. patient alert,oriented. c/o mild back discomfort. in wide complex tachycardia with pacing. patient cyanotic. arms and legs blue, nail beds cyanotic. Amiodarone @1mg. right brachial
dressing dry and intact. pulses verified with Doppler. unable to obtain pulse oximeter, ear pulse oximeter reading 64-80's. lungs with expiratory wheeze and crackles. Bowl Turner at bedside. orders received. placed on 2 liters oxygen. abdomen soft.
ríos inserted per orders. milrinone per orders. call pena in reach. report to oncoming RN
--- NOTE | 2025-04-06 20:40 | PTCARENOTE ---
Received pt resting in bed, AAOx3. Without complaints. REED but weak. Afib with BBB, V-paced on tele. HR 90-100s. BP 90-`
--- NOTE | 2025-04-06 20:41 | PTCARENOTE ---
Received pt resting in bed, AAOx3. Without complaints. REED but weak. Afib with BBB, V-paced on tele. HR 90-100s. BP 90-100s/50s-70s via MARIFER cuff. +2 pitting LE edema. B/L Hands and feet cyanotic. Weak pulses throughout. R brachial cath site dsg
c/d/i. Neurovasc checks ongoing. Afebrile. On 2L NC. Unable to obtain pulse ox due to cyanosis. Pt. appears comfortable, no c/o SOB. Lungs diminished throughout with fine crackles bibasilar. Hypoactive bowel sounds. Reports poor appetite at home.
Mock draining brennen urine - see I&O. Amio gtt and milrinone gtt infusing as ordered.
[2025-04-06] MEDS: TOPROL XL 25 MG PO (21:26)
[2025-04-06] MEDS: MELATONIN 5 MG PO (21:26)
[2025-04-06 23:32] LABS: Blood Urea Nitrogen 45 mg/dl (9-20); Calcium 9.6 mg/dl (8.4-10.2); Carbon Dioxide 20 mmol/L (22-30); Chloride 98 mmol/L (98-107); Estimated Creatinine Clearance 21 ml/min; Glucose 78 mg/dl (70-99); Potassium 5.3 mmol/L (3.5-5.1); Sodium 123 mmol/L (135-145); eGFR 27.32
[2025-04-06 23:48] LABS: Troponin I 0.286 ng/ml
[2025-04-07] VITALS (70 sets, daily range): BP systolic 68–113; BP diastolic 40–84; BMI 23.6
[2025-04-07] MEDS: NOVOLIN R 5 UNITS IV (00:29)
[2025-04-07] MEDS: DEXTROSE 50% SYRINGE 25 GRAMS IV (00:29)
[2025-04-07 00:33] LABS: Glucose - Point of Care 74 mg/dl (70-99)
--- NOTE | 2025-04-07 00:41 | PTCARENOTE ---
K = 5.3. TECHNICAL PROGRAMS MANAGER aware. 5 units regular insulin + D50 ordered and administered. Following accucheck protocol q1hx2, q2hx2.
Otherwise, assessment unchanged.
[2025-04-07 01:35] LABS: Glucose - Point of Care 114 mg/dl (70-99)
[2025-04-07 02:40] LABS: Glucose - Point of Care 101 mg/dl (70-99)
[2025-04-07] MEDS: DOBUTREX 500 MG 250 IV (03:36)
--- NOTE | 2025-04-07 04:00 | PTCARENOTE ---
BP dropping to 80s/40s-50s, MAPs <60. PHOTOCOMPOSING KEYBOARD OPERATOR aware who discussed with cardiology. Dobutamine gtt ordered to maintain SBP>90. Gtt started per orders and a few minutes after, tele reading HR 50s-60s. Previously, pt HR 80-100s. PHOTOCOMPOSING KEYBOARD OPERATOR notified. Dobutamine
turned off. SBP >90 at this time. Will monitor closely. HR improved after turning off gtt to 80s.
Pt. without complaints. Remains on amio gtt and milrinone.
[2025-04-07 04:07] LABS: INR 3.29; PT 33.8 Sec (11.4-14.6)
[2025-04-07 04:20] LABS: Hematocrit 37.4 % (39.0-52.0); Hemoglobin 13.0 g/dL (13.0-18.0); Mean Corp Hgb Conc. 34.8 g/dL (33.0-37.0); Mean Corpuscular Volume 94.4 fL (80.0-94.0); Platelet Count 83 10^3/uL (130-400); Red Cell Dist. Width 15.1 % (11.5-14.5)
[2025-04-07 04:21] LABS: Blood Urea Nitrogen 43 mg/dl (9-20); Calcium 9.0 mg/dl (8.4-10.2); Carbon Dioxide 20 mmol/L (22-30); Chloride 100 mmol/L (98-107); Estimated Creatinine Clearance 22 ml/min; Glucose 97 mg/dl (70-99); Magnesium 2.0 mg/dl (1.6-2.3); Potassium 4.7 mmol/L (3.5-5.1); Sodium 126 mmol/L (135-145); eGFR 28.81
[2025-04-07 04:33] LABS: Troponin I 0.326 ng/ml
[2025-04-07 05:03] LABS: Glucose - Point of Care 84 mg/dl (70-99)
[2025-04-07] MEDS: SYNTHROID 75 MCG PO (05:58)
[2025-04-07 06:15] LABS: Glucose - Point of Care 81 mg/dl (70-99)
--- NOTE | 2025-04-07 07:07 | W.PN.INTV ---
Addendum entered and electronically signed by Bobbi Pickett, DO 04/07/25 13:50:
Hypotension noted, will continue ICU level
Cards to place swan for more definitive eval
Original Note:
Today's Communication / Plan
Recommendations
Doing well on milrinone gtt, stable on RA
Diuresis ongoing per team, cards/renal following
Diet advancement, PT/OT
Transfer to IVU, we will sign off upon transfer
Assessment
-
Patient is a 85-year-old gentleman with longstanding history of severe cardiomyopathy, last EF 30% s/p PROBATE LAWYER-D, coronary artery disease s/p coronary artery bypass graft, paroxysmal atrial fibrillation on chronic anticoagulation who follows up with
[place] [facility], presented to emergency room for worsening shortness of breath. Patient reports that over the last few weeks he has been developing increasing swelling of his lower extremities, decreasing appetite, weight gain as well as orthopnea.
Patient today was at cardiac rehab and noted to have tachycardia and was referred to emergency room for further evaluation. In the emergency room he was noted to have atrial fibrillation which was treated with IV amiodarone. He was subsequently
seen by cardiology service and was taken to [facility] and had a right heart cath performed which was suggestive of pre and post capillary pulmonary hypertension along with significantly elevated biventricular filling pressures consistent with volume
overload. Patient was subsequently admitted to the ICU and tax record clerk consultation was requested for further input.
Acute on chronic heart failure with reduced ejection fraction with cardiogenic shock
Paroxysmal atrial fibrillation with RVR, with concern for atrial tachycardia with paced rhythm today
TAHIRA with underlying chronic kidney disease
Thrombocytopenia, mild
Hyponatremia
Hyperkalemia
Metabolic acidosis
Elevated troponin
Other medical diagnoses:
Hypothyroidism
History of coronary artery disease s/p coronary artery bypass graft
HFrEF, (EF 30%) s/p PROBATE LAWYER-D
PAF on Coumadin
CKD stage 3A
Plan
Stable on RA, maintained on milrinone gtt
Patient has severely reduced ejection fraction, down to 13% on today's echocardiogram
Right heart cath suggestive of severely elevated filling pressures with pulmonary capillary wedge pressure of 30 and a cardiac index of only 1.3
Initiate milrinone as recommended by cardiology service, continue Lasix IV with the goal of net -1 L over 24 hours
Borderline blood pressure might limit diuresis
Amiodarone infusion has been started, will continue
Continue cardiac telemetry
Monitor potassium and magnesium level closely
Continue anticoagulation with Coumadin
Suspect this is cardiorenal syndrome. Significantly elevated pulmonary capillary wedge pressure with bilateral pedal edema and worsening renal function
Continue milrinone as well as IV Lasix and monitor input and output closely
Hyponatremia is related to underlying hypervolemia, anticipate improvement with aggressive diuresis and milrinone infusion
Nephrology service on case, serial labs
Continue aspirin, metoprolol if tolerated by blood pressure, statins
Minimally elevated troponin noted, no chest pain, likely in the setting of decompensated heart failure
Cardiology service on case
Diet advancement
PT/OT
DVT prophylaxis. Continue anticoagulation with Coumadin. INR 3.19.
Data:
CXR 03/2025: Small left pleural effusion. Subtle rounded opacity in the left upper lobe, round pneumonia or mass. Follow-up recommended.
RHC 03/2025: 1. 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
2. PA pulsatility noted to be significantly decreased on short R-R intervals suggesting hemodynamic significance of atrial arrhythmia.
ECHO 03/2025: 1. Left ventricular ejection fraction is severely reduced with an ejection fraction of 13 % by Paulson's biplane method of discs.
2. Stage I diastolic dysfunction suggestive of abnormal relaxation.
3. Right ventricular systolic function is moderately decreased.
4. Pleural effusion present.
5. No significant valve disease.
6. No prior study available for comparison.
-----
Critical Care time 32 mins -- The patient is admitted for acute critical illness for the treatment of vital organ failure and/or prevention of further life-threatening conditions. Total care includes time spent in review of history, physical exam,
medications, hemodynamic/ventilator parameters, laboratory data, imaging and discussion with house staff, pharmacy, respiratory therapy, glue drier operator, and nursing.
Subjective Dataa
Subjective Data
Date of Service:
Date of Service: April 07, 2025
Chief Complaint: Iron Launder Operator Follow Up
Subjective:
Doing well on milrinone, no complaints
Stable on RA
Objective Data
Data Reviewed
Vital Signs / I&O / Oxygen:
Vital Signs
Temp Pulse Resp BP Pulse Ox
97 F 76 14 95/53 98
04/07/25 03:04 04/07/25 05:30 04/07/25 05:30 04/07/25 05:00 04/07/25 05:30
Intake and Output
04/06/25 04/07/25 04/08/25
06:59 06:59 06:59
Intake Total 566.1 / 566.1
Output Total 880 / 880
Balance -313.9 / -313.9
SaO2 98
Nasal Cannula flow liters per 2
minute
Physical Exam
General: Comfortable and Other (NAD)
HEENT: Normocephalic, Anicteric and Moist Mucous Membranes
Cardiovascular: S1-S2, Regular Rhythm and Peripheral Edema (1+)
Respiratory: Crackles and Non-Labored Respirations
GI: Soft, Non Distended and Non Tender
Neurology: Awake, Alert, Oriented and No Motor Deficits
Skin: Warm, Dry and Good Color
Labs/Micro/Reports
Lab Data
04/07/25 03:35
04/07/25 03:35
Laboratory Results
04/06/25 04/07/25
09:47 03:35
PT 33.0 H 33.8 H
INR 3.19 3.29
APTT 41.4 H
[2025-04-07] MEDS: LASIX 80 MG IV ×2 (07:56→17:00)
[2025-04-07] MEDS: TYLENOL 500 MG PO ×3 (07:56→22:30)
[2025-04-07] MEDS: ASPIR LOW (ENTERIC COATED) 81 MG PO (07:56)
[2025-04-07] MEDS: TOPROL XL PO (07:57)
--- NOTE | 2025-04-07 08:18 | W.PN.CD ---
Today's Communication / Plan
-
transition to 400mg po bid when 24 iv load complete
continue iv lasix and milrinone ggt
ok to go to IVU if bed available
d/e Dr Rodriges, Dr Mane and [facility]
Impression / Plan
-
Cardiogenic Shock:
-CO 2.3/135 when map 82
- overnight required the addition of Db but became jaret and hypotensive according to d/w nursing
-continue on milrinone
Nhtbr-ch-wwgrnek HFrEF:
-EF down to 13%
-high risk diagnosis with addition of TAHIRA and electrolyte abnormalities as below, in this patient with advanced CHF
-continue IV diuresis with ionotropic support, which requires intensive monitoring.
-recent nonischemic stress in eval
-more SVT on device, may be adding to issue
-continue farxiga
-Continue bb when able
-typically on Entresto and eplerenone-resume when able
PAF:
-device interrogation reviewed with EP and shows atrial tachycardia/poss aflutter.
-has been paroxysmal here, current sinus in the high 70s
-likely contributing to CHF exacerbation
-Complete IV amiodarone load and then begin Amiodarone 400mg bid
-This requires intensive monitoring.
-On chronic warfarin, will need adjustment with higher Amiodarone dose
ICM EF 29%:
-follows with advanced CHF at [facility]
-TOMOGRAPHIC TECH-D in place (BS)- interrogation done in ER - see below
-home regimen: BB, SGLT2I, ARNI, and MRA
Hyponatremia:
-needs monitoring with diuresis
TAHIRA on CKD:
-last OP creatinine in [facility] : 1.7
-Dr. Rodriges is risk modeler, nephro following
-likely cardiorenal etiology
CAD with hx CABG:
-no CP
-continue ASA, statin, BB
-recent op Lexiscan with large infarct but no ischemia
Abnormal CXR:
-CXR: Small left pleural effusion. Subtle rounded opacity in the left upper lobe, round pneumonia or mass. Follow-up recommended. Management per IM.
Abnormal troponin:
-suspect acute, non-ischemic myocardial injury in setting of CHF, renal dysfunction
-can trend to peak and check echo
-no CP
Data Reviewed
RHC: 04/07/25:
HEMODYNAMIC DATA
WT 144lb 6.44oz
SBP 101/72 (mean 82) mmHg
RA 27 mmHg
RV 51/19 (EDP 23) mmHg
PA 52/38 (mean 40) mmHg
PCWP 30 mmHg
SaO2 100%
SvO2 56.0%
Hb 15.5 g/dL
CO/CI 2.3/1.35 L/min/m2
SVR 1881 dsc*-5
PVR 4.3 Wood units
CONCLUSIONS
1. 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
2. PA pulsatility noted to be significantly decreased on short R-R intervals suggesting hemodynamic significance of atrial arrhythmia.
04/07/25 TTE:
1. Left ventricular ejection fraction is severely reduced with an ejection fraction of 13 % by Paulson's biplane method of discs.
2. Stage I diastolic dysfunction suggestive of abnormal relaxation.
3. Right ventricular systolic function is moderately decreased.
4. Pleural effusion present.
5. No significant valve disease.
6. No prior study available for comparison.
CCT 31 minutes
Physical Exam
Vital Signs/Labs
Vital Signs
Temp Pulse Resp BP Pulse Ox
97 F 72 14 93/61 99
04/07/25 03:04 04/07/25 07:56 04/07/25 07:00 04/07/25 07:56 04/07/25 07:00
04/06/25 04/07/25 04/08/25
06:59 06:59 06:59
Actual Weight 141 lb 15.643 oz
04/07/25 03:35
04/07/25 03:35
PT 33.8 Sec (11.4-14.6) H 04/07/25 03:35
INR 3.29 04/07/25 03:35
APTT 41.4 Sec (23.4-35.0) H 04/06/25 09:47
Magnesium 2.0 mg/dl (1.6-2.3) 04/07/25 03:35
04/06/25
09:47
Mig-T-Kzsvqqkaaev Pept 15256
LAB Results
04/06/25 04/06/25 04/06/25
09:47 18:01 23:08
Troponin I 0.376 H* 0.278 H* 0.286 H*
04/07/25
03:35
Troponin I 0.326 H*
Physical Exam
Constitutional: No acute distress
EENT: Anicteric
Cardiovascular: Rhythm & rate is regular, Pedal edema present (trace b/l ), Systolic murmur present and Diastolic murmur present
Respiratory: Respiratory effort normal, Lungs clear to auscul., Wheeze Absent and Crackles Absent
Neuro/Psych: AO x 3
Data Reviewed
-
Date of Service: April 07, 2025
Medical Decision Making: Review of Case with other Provider
EKG: Other (tele sinus with biv pacing appropriately)
--- NOTE | 2025-04-07 08:19 | W.PN.NEPH.PH ---
Today's Communication / Plan
-
Maintain IV diuresis and inotropic support
TAHIRA persist but patient nonoliguric 800 cc
Assessment/Plan
-
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 Is found to have rapid A-fib placed on amiodarone drip. He has been having
shortness of breath difficulty talking for the last couple days he has been doing cardiac rehab and was noted to be tachycardic and sent to the emergency room..
Echocardiogram done today showed ejection fraction down to 13%.
Renal consult for acute kidney injury creatinine of 2.3 from 1.13 January 2025
Follows outpatient with Dr. Rodriges
Impression.
Acute on chronic kidney disease with a baseline creatinine of 1.6-1.7 outpatient January 2025
Acute on chronic CHF. (Cardiogenic shock)
CAD/history of CABG
Hyperkalemia
Hyponatremia 126
PAF with rapid ventricular response
Plan.
Right heart cath : Pulmonary capillary wedge pressure 30, cardiac index 1.3
milrinone inotropic support initiated last evening
Hyperkalemia treated
Patient remains hemodynamically unstable in setting of cardiogenic shock
Creatinine unchanged at 2.2 with 800 cc urine output via Mock
Fluid restrict and continue attempt of diuresis in setting of hyponatremia secondary to underlying congestive heart failure
Chest x-ray personally reviewed this morning no effusions,now overt pulmonary edema
Maintain IV Lasix 80 mg twice daily
Patient remains critically ill with decompensated congestive heart failure in setting of cardiogenic shock with associated hemodynamic instability and acute renal failure
31 minutes of critical care time spent with patient
Total Time Spent with Patient (in minutes): 31
-
-
Date of Service: April 07, 2025
CC / HPI / ROS
-
Chief Complaint:
Acute kidney injury
History of Present Illness:
Creatinine unchanged at 2.2
Hemodynamically labile on inotropic support
Remains on Lasix 80 mg IV twice daily in setting of congestive heart failure decompensation
Review of Systems:
Nonoliguric via Mock around 800 cc
No fever
Weights down
Labs
-
Labs:
WBC 5.7 10^3/uL (4.8-10.8) 04/07/25 03:35
RBC 3.96 10^6/uL (4.70-6.10) L 04/07/25 03:35
Hgb 13.0 g/dL (13.0-18.0) 04/07/25 03:35
Hct 37.4 % (39.0-52.0) L 04/07/25 03:35
Plt Count 83 10^3/uL (130-400) L 04/07/25 03:35
Sodium 126 mmol/L (135-145) L 04/07/25 03:35
Potassium 4.7 mmol/L (3.5-5.1) 04/07/25 03:35
Potassium Cancelled 04/07/25 03:35
Chloride 100 mmol/L (98-107) 04/07/25 03:35
Carbon Dioxide 20 mmol/L (22-30) L 04/07/25 03:35
BUN 43 mg/dl (9-20) H 04/07/25 03:35
Creatinine 2.2 mg/dL (0.7-1.3) H 04/07/25 03:35
eGFR 28.81 04/07/25 03:35
Glucose 97 mg/dl (70-99) 04/07/25 03:35
Calcium 9.0 mg/dl (8.4-10.2) 04/07/25 03:35
Phosphorus 4.2 mg/dl (2.5-4.5) 04/06/25 09:47
Eqq-M-Zqoelnkrctt Pept 58160 pg/ml 04/06/25 09:47
Albumin 4.0 g/dl (3.5-5.0) 04/06/25 09:47
Physical Exam
-
Vital Signs:
Vital Signs
Temp Pulse Resp BP Pulse Ox
97 F 72 14 93/61 99
04/07/25 03:04 04/07/25 07:56 04/07/25 07:00 04/07/25 07:56 04/07/25 07:00
Cardiovascular:: Regular rate and rhythm (Irregular irregular)
Respiratory:: Bilateral: CTA
Lung Excursion:: Normal
Abdomen:: Nontender and Soft
Bowel Sounds:: Normal
Extremity Edema:: None: Bilateral:
Mock Catheter: Yes
--- NOTE | 2025-04-07 08:59 | PTCARENOTE ---
Addendum entered by Nano Johnson RN 04/07/25 09:40:
[email or web address]. reviewed plan of care, notified of right thumb numbness
Original Note:
report received. assessments per work list. patient drowsy,arousable. denies pain. oriented. c/o slight numbness right tip of thumb. hand pink, warm with good refill. palpable pulses. no edema. monitor vpace. amiodarone and milrinone per orders.
lungs with diminished breath sounds. [email or web address] pacing on monitor. abdomen soft, round, active bowel sounds. ríos draining brennen yellow urine. call pena in reach.
--- NOTE | 2025-04-07 11:13 | CM ---
Initial assessment completed with patient who lives with his in a 2 story home plus finished basement with B/B on 2nd and 1/2 bath on , 1 step to enter. 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 Has a SPC in the home but
does not use. No in-home services. No VA benefits. No psychiatric hospitalizations.Does have HC-POA. PCP is Dr. Pool Holloway. Pharmacy is [facility] [address] in [place]. Discharge POC: Anticipate home with no needs.
--- NOTE | 2025-04-07 11:16 | PTCARENOTE ---
Addendum entered by Nano Johnson RN 04/07/25 12:08:
assisted back to bed systolic 60's. rebounded up to the 80's systolic. map 50-60's. family support specialist updated. orders pending. she request patient be upgraded back to icu. hospitalist updated by tiger text
Original Note:
patient assisted oob to chair, gait unsteady. blood pressure sitting dropped, but recovered. in the chair systolic remains in the 80's, patient is asymptomatic. TT to Dr Slaughter to update.spouse at bedside. orders pending
[2025-04-07] MEDS: FARXIGA 10 MG PO (12:23)
[2025-04-07] MEDS: VIBRAMYCIN 50 MG PO (12:23)
[2025-04-07 12:34] LABS: Glucose - Point of Care 133 mg/dl (70-99)
[2025-04-07] MEDS: PACERONE 400 MG PO ×2 (12:39→20:12)
--- NOTE | 2025-04-07 12:54 | W.PN.HOSP.TC ---
Today's Communication/Plan
-
transition to Levophed from Milrinone; PICC
continue IV Lasix
keep in ICU floor per Cardiology
follow cards/renal/ICU recs
High risk situation with low EF and cardiogenic shock
Assessment / Plan
Assessment / Plan
Assessment:
Cardiogenic Shock
- CO 2.3/135
- stopping Milrinone due to hypotension; Levophed (goal MAP >65) and PICC ordered. D/w Dr. Slaughter Cardiology
Khrpk-zj-utdonhy HFrEF (NHYA class II to IV)
History of ischemic cardiomyopathy (EF 30%) s/p DATABASE ENGINEER-D
- life threatening diagnosis with concurrent TAHIRA, electrolyte abnormalities, known advanced CHF
- continue IV Lasix - requires intensive monitoring of I/Os, weights, lytes.
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
- GMDT: BB/SGLT2/ARNI/MRA
- Echo: EF 13%, stage 1 DD, RV reduced systolic dysfunction
- CBC cards following
Parox A. Fib with RVR
- device interrogation per Cards showed atrial tachycardia/poss aflutter. Now back in SR without intervention.
- complete IV Amiodarone load - requires intensive monitoring. Later transition to Amio 400mg BID
- Continue Coumadin, f/u INRs
nonischemic myocardial injury in setting of CHF, renal failure
- trend to peak
Acute Hyperkalemia
- s/p temporization in ER
Acute hypervolemic hyponatremia
TAHIRA on CKD3a, cardiorenal in setting of acute CHF
- Nephrology following
- follow labs with ongoing diuresis
CAD with hx CABG:
- no CP
- continue ASA, statin, BB
- recent op Lexiscan with large infarct but no ischemia
Abnormal CXR:
- CXR: Small left pleural effusion. Subtle rounded opacity in the left upper lobe, round pneumonia or mass.
- consider CT chest
- no infectious signs/symptoms
Thrombocytopenia
- monitor, no signs of bleeding
Hypothyroidism - continue replacement
DVT ppx: Coumadin (hold pending RHC)
Code: Full
Total Critical Care Time 42 minutes. I was immediately available to the patient and staff. I personally examined, reviewed labs, diagnostic images/reports, interpretations, treatment plans, discussed patient care with other providers and family
or caregivers (if patient is unable to make decisions), entered orders as appropriate and documented the medical record.
Anticipated Discharge: > 48 hours
Subjective/Interval History
-
Date of Service: April 07, 2025
resting comfortably, on milrinone but with hypotension; now planned for Levophed transition
denies SOB or CP
Objective Data
-
Labs:
Laboratory Results
04/07/25 04/07/25
03:35 03:35
WBC 5.7
Hgb 13.0
Hct 37.4 L
Plt Count 83 L
PT 33.8 H
INR 3.29
Sodium 126 L
Potassium Cancelled 4.7
Chloride 100
Carbon Dioxide 20 L
BUN 43 H
Creatinine 2.2 H
Glucose 97
Calcium 9.0
Vital Signs:
Vital Signs
Temp Pulse Resp BP Pulse Ox
97.5 F 75 19 91/59 99
04/07/25 11:13 04/07/25 12:45 04/07/25 12:45 04/07/25 12:45 04/07/25 12:45
I&O
04/06/25 04/07/25 04/08/25
06:59 06:59 06:59
Intake Total 566.1 / 585.3 475.2 / 475.2
Output Total 880 / 880 1150 / 1150
Balance -313.9 / -294.7 -674.8 / -674.8
Physical Exam
-
General: No Apparent Distress
HEENT: Normocephalic and Atraumatic
Respiratory: Negative Wheezes
Cardiac: Regular Rhythm and S1/S2
GI: Soft and Nontender
Neuro: AO x 3
Psych: Calm
Data Reviewed
-
Critical Care Time (in minutes): 42
Labs: Labs Reviewed by me
--- NOTE | 2025-04-07 13:07 | PTCARENOTE ---
ordersreceived, milrinone d/c, levophed initiated for hypotension. family and patient updated on change in plan of care.
[2025-04-07] MEDS: LEVOPHED 250 IV (13:09)
--- NOTE | 2025-04-07 15:15 | PTCARENOTE ---
Received patient A&Ox3, on RA, V paced on the monitor, low BP on Levophed Drip @4mcg/min, Mock in place draining yellow urine, pending to Policy Analyst for [place] insertion @18:00, patient and family agreed to hold off dinner until after coming back to
the unit.
[2025-04-07] MEDS: LIPITOR 80 MG PO (17:06)
--- NOTE | 2025-04-07 18:34 | ITS.CL.PN ---
Make Ready Worker - Procedure Note
Procedure
Procedure Note:
CARDIAC CATHETERIZATION REPORT
Date of Procedure: 04/07/2025
Referring: Dr. Sherri Slaughter MD
Indication: Cardiogenic shock
PROCEDURE: right heart catheterization
ACCESS: 8F right internal jugular vein (closure: sewn at 58 cm)
CATHETERS: 7F [place]-Eve
HEMODYNAMIC DATA - on 4 norepi
SBP 103/58 (mean 75) mmHg
RA 19 mmHg
RV 42/1 (EDP 12) mmHg
PA 47/16 (mean 24) mmHg
PCWP 18 mmHg
SaO2 97.0%
SvO2 61.2%
Hb 13.0 g/dL
CO/CI 3.41/2.00 L/min/m2
SVR 1314 dsc*-5
PVR 1.76 Wood units
CONCLUSION
1. Elevated right greater than left ventricular filling pressure, mild pulmonary hypertension, and reduced cardiac index.
RECOMMENDATIONS
1. Maintain euvolemia
2. Wean norepi for goal MAP>65
3. Consider inotropy to maintain CI>2 (milrinone/dobutamine if adequate MAP/SVR, epi if not)
Signed: Ramon Matute MD, PhD
--- NOTE | 2025-04-07 18:50 | PTCARENOTE ---
Patient back from [facility], [place] Eve catheter @58cm per cath report, Cordis infusing Levophed. No other changes from previous assessments.
--- NOTE | 2025-04-07 20:00 | PTCARENOTE ---
Assume care of patient at 1900. patient returned from Cathlab with new [place] Gnaz catheter placement. Cardiac Output lines PAP line set up. Patient alert and oriented. Follows all commands, denies pain at this time. V paced, on 4 mcg/min of
Levophed, +pulses, +2 edema in lower extremities. Lungs clear bilaterally, diminished at bases, 100% on room air, using IS well independently. Mock catheter draining clear yellow urine. +BS, see workflow for detailed assessment.
[2025-04-07] MEDS: TOPROL XL 25 MG PO (20:13)
[2025-04-07] MEDS: MELATONIN 5 MG PO (22:30)
--- NOTE | 2025-04-07 22:45 | PTCARENOTE ---
patient resting comfortable, CHG bath completed and ríos care done. medications given with out issue.
[2025-04-08] VITALS (61 sets, daily range): BP systolic 77–125; BP diastolic 51–105; BMI 24.4
--- NOTE | 2025-04-08 02:11 | PTCARENOTE ---
patient having runs of PVC and V tach, Titrated Levophed off.
[2025-04-08 03:57] LABS: Hematocrit 38.9 % (39.0-52.0); Hemoglobin 13.4 g/dL (13.0-18.0); Mean Corp Hgb Conc. 34.9 g/dL (33.0-37.0); Mean Corpuscular Volume 96.0 fL (80.0-94.0); Platelet Count 79 10^3/uL (130-400); Red Cell Dist. Width 15.3 % (11.5-14.5)
[2025-04-08 04:02] LABS: INR 3.89; PT 37.8 Sec (11.4-14.6)
[2025-04-08 04:13] LABS: Blood Urea Nitrogen 44 mg/dl (9-20); Calcium 8.8 mg/dl (8.4-10.2); Carbon Dioxide 26 mmol/L (22-30); Chloride 99 mmol/L (98-107); Estimated Creatinine Clearance 22 ml/min; Glucose 93 mg/dl (70-99); Potassium 3.8 mmol/L (3.5-5.1); Sodium 129 mmol/L (135-145); eGFR 28.81
[2025-04-08] MEDS: SYNTHROID 75 MCG PO (05:52)
--- NOTE | 2025-04-08 07:01 | W.PN.INTV ---
Today's Communication / Plan
Recommendations
Stable on room air, on low dose levophed 2mcgs
Diuresis held, wedge on swan low
Defer further management to cards
Assessment
-
Patient is a 85-year-old gentleman with longstanding history of severe cardiomyopathy, last EF 30% s/p CHROME WORKER-D, coronary artery disease s/p coronary artery bypass graft, paroxysmal atrial fibrillation on chronic anticoagulation who follows up with
[facility], presented to emergency room for worsening shortness of breath. Patient reports that over the last few weeks he has been developing increasing swelling of his lower extremities, decreasing appetite, weight gain as well as orthopnea.
Patient today was at cardiac rehab and noted to have tachycardia and was referred to emergency room for further evaluation. In the emergency room he was noted to have atrial fibrillation which was treated with IV amiodarone. He was subsequently
seen by cardiology service and was taken to [facility] [employer] [facility] and had a right heart cath performed which was suggestive of pre and post capillary pulmonary hypertension along with significantly elevated biventricular filling pressures consistent with volume
overload. Patient was subsequently admitted to the ICU and defense travel administrator consultation was requested for further input.
Acute on chronic heart failure with reduced ejection fraction with cardiogenic shock
Paroxysmal atrial fibrillation with RVR, with concern for atrial tachycardia with paced rhythm today
TAHIRA with underlying chronic kidney disease
Thrombocytopenia, mild
Hyponatremia
Hyperkalemia
Metabolic acidosis
Elevated troponin
Other medical diagnoses:
Hypothyroidism
History of coronary artery disease s/p coronary artery bypass graft
HFrEF, (EF 30%) s/p CHROME WORKER-D
PAF on Coumadin
CKD stage 3A
Plan
Stable on RA
Patient has severely reduced ejection fraction, down to 13% on echocardiogram
Right heart cath suggestive of severely elevated filling pressures with pulmonary capillary wedge pressure of 30 and a cardiac index of only 1.3
Initiate milrinone as recommended by cardiology service, continue Lasix IV with the goal of net -1 L over 24 hours
Borderline blood pressure might limit diuresis
s/p swan 8/29/25
Levophed continued per cards
No plan for any other intervention including diuresis
Amiodarone infusion has been started, will continue
Continue cardiac telemetry
Monitor potassium and magnesium level closely
Continue anticoagulation with Coumadin
Suspect this is cardiorenal syndrome. Significantly elevated pulmonary capillary wedge pressure with bilateral pedal edema and worsening renal function
Continue milrinone as well as IV Lasix and monitor input and output closely
Hyponatremia is related to underlying hypervolemia, anticipate improvement with aggressive diuresis and milrinone infusion
Nephrology service on case, serial labs
Continue aspirin, metoprolol if tolerated by blood pressure, statins
Minimally elevated troponin noted, no chest pain, likely in the setting of decompensated heart failure
Cardiology service on case
Diet advancement
PT/OT
DVT prophylaxis. Continue anticoagulation with Coumadin. INR 3.19.
Data:
CXR 03/2025: Small left pleural effusion. Subtle rounded opacity in the left upper lobe, round pneumonia or mass. Follow-up recommended.
RHC 03/2025: 1. 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
2. PA pulsatility noted to be significantly decreased on short R-R intervals suggesting hemodynamic significance of atrial arrhythmia.
ECHO 03/2025: 1. Left ventricular ejection fraction is severely reduced with an ejection fraction of 13 % by Paulson's biplane method of discs.
2. Stage I diastolic dysfunction suggestive of abnormal relaxation.
3. Right ventricular systolic function is moderately decreased.
4. Pleural effusion present.
5. No significant valve disease.
6. No prior study available for comparison.
-----
Critical Care time 32 mins -- The patient is admitted for acute critical illness for the treatment of vital organ failure and/or prevention of further life-threatening conditions. Total care includes time spent in review of history, physical exam,
medications, hemodynamic/ventilator parameters, laboratory data, imaging and discussion with house staff, pharmacy, respiratory therapy, loss prevention lead, and nursing.
Subjective Dataa
Subjective Data
Date of Service:
Date of Service: April 08, 2025
Chief Complaint: Dispensing Lead Follow Up
Subjective:
Denies any new complaints, remains stable on RA
Low dose levophed noted
Objective Data
Data Reviewed
Vital Signs / I&O / Oxygen:
Vital Signs
Temp Pulse Resp BP Pulse Ox
98.4 F 95 13 92/62 100
04/07/25 21:14 04/08/25 06:19 04/08/25 06:19 04/08/25 06:19 04/08/25 06:19
Intake and Output
04/07/25 04/08/25 04/09/25
06:59 06:59 06:59
Intake Total 566.1 / 585.3 1284.20 / 1284.20
Output Total 880 / 880 3420 / 3420
Balance -313.9 / -294.7 -2135.80 / -2135.80
SaO2 100
Nasal Cannula flow liters per 2
minute
Physical Exam
General: Comfortable and Other (NAD)
HEENT: Normocephalic, Anicteric and Moist Mucous Membranes
Cardiovascular: S1-S2, Regular Rhythm and Peripheral Edema (1+)
Respiratory: Crackles and Non-Labored Respirations
GI: Soft, Non Distended and Non Tender
Neurology: Awake, Alert, Oriented and No Motor Deficits
Skin: Warm, Dry and Good Color
Labs/Micro/Reports
Lab Data
04/08/25 03:26
04/08/25 03:26
Laboratory Results
04/08/25
03:26
PT 37.8 H
INR 3.89
--- NOTE | 2025-04-08 07:30 | W.PN.NEPH.PH ---
Today's Communication / Plan
-
Maintain Lasix 80 mg IV twice daily for net negative output
Inotrope now off
Levophed continued to keep MAP at 65 or greater to augment renal artery perfusion pressure
Assessment/Plan
-
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 Is found to have rapid A-fib placed on amiodarone drip. He has been having
shortness of breath difficulty talking for the last couple days he has been doing cardiac rehab and was noted to be tachycardic and sent to the emergency room..
Echocardiogram done today showed ejection fraction down to 13%.
Renal consult for acute kidney injury creatinine of 2.3 from 1.13 January 2025
Follows outpatient with Dr. Rodriges
Impression.
Acute on chronic kidney disease with a baseline creatinine of 1.6-1.7 outpatient January 2025
Acute on chronic CHF. (Cardiogenic shock)
CAD/history of CABG
Hyperkalemia
Hyponatremia 126
PAF with rapid ventricular response
Plan.
Right heart cath : Pulmonary capillary wedge pressure 30 04/06 , now 18 after RHC on 04/07 cardiac index 2
levophed for pressor support to keep MAP ~65, milrionone now off
Creatinine unchanged to 2.2 but now grossly nonoliguric 3 L with improving hyponatremia
Patient remains hemodynamically unstable in setting of cardiogenic shock
Maintain fluid restriction and continue diuresis in setting of hyponatremia secondary to underlying congestive heart failure
Maintain IV Lasix 80 mg twice daily
Patient remains critically ill with decompensated congestive heart failure in setting of cardiogenic shock with associated hemodynamic instability and acute renal failure
31 minutes of critical care time spent with patient
-
-
Date of Service: April 08, 2025
CC / HPI / ROS
-
Chief Complaint:
Acute kidney injury
History of Present Illness:
Creatinine unchanged at 2.2
Hemodynamically labile on Levophed
Remains on Lasix 80 mg IV twice daily in setting of congestive heart failure decompensation
Hyponatremia improved
Review of Systems:
Nonoliguric via Mock around 3000 cc
No fever
Weights down
Labs
-
Labs:
WBC 6.9 10^3/uL (4.8-10.8) 04/08/25 03:26
RBC 4.00 10^6/uL (4.70-6.10) L 04/08/25 03:26
Hgb 13.4 g/dL (13.0-18.0) 04/08/25 03:26
Hct 38.9 % (39.0-52.0) L 04/08/25 03:26
Plt Count 79 10^3/uL (130-400) L 04/08/25 03:26
Sodium 129 mmol/L (135-145) L 04/08/25 03:26
Potassium 3.8 mmol/L (3.5-5.1) 04/08/25 03:26
Chloride 99 mmol/L (98-107) 04/08/25 03:26
Carbon Dioxide 26 mmol/L (22-30) 04/08/25 03:26
BUN 44 mg/dl (9-20) H 04/08/25 03:26
Creatinine 2.2 mg/dL (0.7-1.3) H 04/08/25 03:26
eGFR 28.81 04/08/25 03:26
Glucose 93 mg/dl (70-99) 04/08/25 03:26
Calcium 8.8 mg/dl (8.4-10.2) 04/08/25 03:26
Phosphorus 4.2 mg/dl (2.5-4.5) 04/06/25 09:47
Otn-T-Yfgqsfkqogu Pept 94321 pg/ml 04/06/25 09:47
Albumin 4.0 g/dl (3.5-5.0) 04/06/25 09:47
Physical Exam
-
Vital Signs:
Vital Signs
Temp Pulse Resp BP Pulse Ox
98.4 F 95 13 92/62 100
04/07/25 21:14 04/08/25 06:19 04/08/25 06:19 04/08/25 06:19 04/08/25 06:19
Cardiovascular:: Regular rate and rhythm (Irregular irregular)
Respiratory:: Bilateral: CTA
Lung Excursion:: Normal
Abdomen:: Nontender and Soft
Bowel Sounds:: Normal
Extremity Edema:: None: Bilateral:
Mock Catheter: Yes
--- NOTE | 2025-04-08 08:54 | W.PN.HOSP.TC ---
Today's Communication/Plan
-
continue IV Diuretics
continue Levophed
follow Cards/ICU/Renal recs
Assessment / Plan
Assessment / Plan
Assessment:
Cardiogenic Shock
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
- CO 2.3/13.5
- stopped Milrinone due to hypotension; Levophed (goal MAP >65)
- [place] placed 04/07; follow readings per [facility] Cardiology
Rbhxc-pr-qettutz HFrEF (NHYA class II to IV)
History of ischemic cardiomyopathy (EF 30%) s/p HOSTESS CASHIER-D
- life threatening diagnosis with concurrent TAHIRA, electrolyte abnormalities, known advanced CHF
- continue IV Lasix - requires intensive monitoring of I/Os, weights, lytes.
- GMDT: BB/SGLT2/ARNI/MRA
- Echo: EF 13%, stage 1 DD, RV reduced systolic dysfunction
- CBC cards following
Parox A. Fib with RVR
- device interrogation per Cards showed atrial tachycardia/poss aflutter. Now back in SR without intervention.
- s/p IV Amiodarone load. Continue oral Amio 400mg BID
- holding Coumadin for supratherapeutic INR
nonischemic myocardial injury in setting of CHF, renal failure
- trend to peak
Acute Hyperkalemia
- s/p temporization in ER
Acute hypervolemic hyponatremia
TAHIRA on CKD3a, cardiorenal in setting of acute CHF
- Nephrology following
- follow labs with ongoing diuresis
CAD with hx CABG:
- no CP
- continue ASA, statin, BB
- recent op Lexiscan with large infarct but no ischemia
Abnormal CXR:
- CXR: Small left pleural effusion. Subtle rounded opacity in the left upper lobe, round pneumonia or mass.
- consider CT chest
- no infectious signs/symptoms
Thrombocytopenia
- monitor, no signs of bleeding
Hypothyroidism - continue replacement
DVT ppx: supratherapeutic INR
Code: Full
Total Critical Care Time 41 minutes. I was immediately available to the patient and staff. I personally examined, reviewed labs, diagnostic images/reports, interpretations, treatment plans, discussed patient care with other providers and family or
caregivers (if patient is unable to make decisions), entered orders as appropriate and documented the medical record.
Anticipated Discharge: > 48 hours
Subjective/Interval History
-
Date of Service: April 08, 2025
resting comfortably
SWAN in place
remains on Levophed 2mcg/m
Objective Data
-
Labs:
Laboratory Results
04/08/25
03:26
WBC 6.9
Hgb 13.4
Hct 38.9 L
Plt Count 79 L
PT 37.8 H
INR 3.89
Sodium 129 L
Potassium 3.8
Chloride 99
Carbon Dioxide 26
BUN 44 H
Creatinine 2.2 H
Glucose 93
Calcium 8.8
Vital Signs:
Vital Signs
Temp Pulse Resp BP Pulse Ox
97.3 F 95 13 92/62 100
04/08/25 08:00 04/08/25 06:19 04/08/25 06:19 04/08/25 06:19 04/08/25 06:19
I&O
04/07/25 04/08/25 04/09/25
06:59 06:59 06:59
Intake Total 566.1 / 585.3 1284.20 / 1284.20
Output Total 880 / 880 3420 / 3420
Balance -313.9 / -294.7 -2135.80 / -
Physical Exam
-
General: Well Developed and Well Nourished
HEENT: Atraumatic and Other (JESUS MANUEL Gutierrez in place)
Respiratory: Negative Wheezes
Cardiac: Regular Rhythm and S1/S2
GI: Soft
Neuro: AO x 3
Psych: Calm
Data Reviewed
-
Critical Care Time (in minutes): 41
Labs: Labs Reviewed by me
--- NOTE | 2025-04-08 09:30 | PTCARENOTE ---
Rec'd pt at 0800 dozing- awakens easily to verbal stimuli and is alert and oriented. States he didn't sleep overly well last night mostly because of the temp in the room-once adjusted was better. Denies pain this am- other than he can feel the
Cordis at his R neck. Speech is clear. REED. Skin is pale pink wm and dry. R brachial old cath site with dressing over that is D+I. No swelling or drainage. Good CMS checks to distal extrem. Respirs- Rec'd pt on 4L nc but is was mostly on his cheek
and sats were 99% so O2 dc'd and RA sats are 98-99%. BS are clear. Getting about 1400 on IS. Denies shortness of breath. Monitor Vpaced in the 70-80's. VS as documented.Rec'd pt on IV Levophed at 2 mcg via RIJ Cordis-will titrate to keep MAP >65. Pt
with RIJ Cordis and Madison- Madison zeroed and recalibrated, waveform as documented. Hemodynamics performed with pts bed at 30' + pulses. Tr pedal edema-per pt is much better. Denies chest pain. ABd is soft with + BS. Denies nausea. Pt with 1200 fluid
restriction. Pt aware. Thermistor ríos in place for yellow urine. Capped ints intact R and L arm- sites wnl. Foam dressing on sacrum. Pt with skin tear L elbow with foam dressing. Turned and repositioned. Skin care given. Call pena in reach.
[2025-04-08] MEDS: TYLENOL 500 MG PO ×3 (09:42→22:20)
[2025-04-08] MEDS: PACERONE 400 MG PO ×2 (09:43→20:33)
[2025-04-08] MEDS: ASPIR LOW (ENTERIC COATED) 81 MG PO (09:44)
--- NOTE | 2025-04-08 10:30 | PTCARENOTE ---
Repositioned. Did not order much for breakfast but ate what he ordered. Denies nausea. VS as documented. Dr. Zepeda in to see pt and updated.
[2025-04-08] MEDS: TOPROL XL PO (10:52)
--- NOTE | 2025-04-08 11:21 | CM ---
Spoke with attending who stated that patent should be here through the weekend as he is being treated for Cardiogenic Shock.
Plan: Case management will continue to follow and assist with discharge planning. Will watch for needs.
--- NOTE | 2025-04-08 11:25 | W.PN.CD ---
Today's Communication / Plan
-
Prefer to leave on Levophed to maintain CO/CI and support BP
No milrinone
Lasix on hold
Metoprolol on hold
Now in Sinus with V pacing, continue Amio
Impression / Plan
-
Cardiogenic Shock with Zmawe-lq-jwvfqcs HFrEF, LVEF 13%
- CI is a bit too low now to want to stop Levophed
- Last evening (04/07/2025) after this data below we chose to sit tight on Levophed and not add milrinone/dobutamine
Corrected data from 04/07/2025
HEMODYNAMIC DATA - on 4 norepi
SBP 103/58 (mean 75) mmHg
RA 19 mmHg
RV 42/1 (EDP 12) mmHg
PA 47/16 (mean 24) mmHg
PCWP 18 mmHg
SaO2 97.0%
SvO2 61.2%
Hb 13.0 g/dL
CO/CI 3.41/2.00 L/min/m2
SVR 1314 dsc*-5
PVR 1.76 Wood units
- Will hold metoprolol while on Levophed
- Weight up but I/Os suggest he is negative
- Lasix on Hold, no lasix today so far 04/07/2025
-high risk diagnosis with addition of TAHIRA and electrolyte abnormalities as below, in this patient with advanced CHF
-continue IV diuresis with ionotropic support, which requires intensive monitoring.
-recent nonischemic stress in eval
-more SVT on device, may be adding to issue
-continue farxiga
-Continue bb when able
-typically on Entresto and eplerenone-resume when able
PAF:
-device interrogation reviewed with EP and shows atrial tachycardia (453 ms = 132 bpm)
- NOW in SINUS at slower rated (04/08/2025)
-has been paroxysmal here, current sinus in the high 70s
-likely contributing to CHF exacerbation
-Complete IV amiodarone load and then begin Amiodarone 400mg bid
-This requires intensive monitoring.
-On chronic warfarin, will need adjustment with higher Amiodarone dose
ICM EF 29%:
-follows with advanced CHF at [place]
-HOSPICE OFFICE COORDINATOR-D in place (BS)- interrogation done in ER - see below
-home regimen: BB, SGLT2I, ARNI, and MRA
Hyponatremia:
-needs monitoring with diuresis
TAHIRA on CKD:
-last OP creatinine in [facility] : 1.7
-Dr. Rodriges is veterinary manager, nephro following
-likely cardiorenal etiology
CAD with hx CABG:
-no CP
-continue ASA, statin, BB
-recent op Lexiscan with large infarct but no ischemia
Abnormal CXR:
-CXR: Small left pleural effusion. Subtle rounded opacity in the left upper lobe, round pneumonia or mass. Follow-up recommended. Management per IM.
Abnormal troponin:
-suspect acute, non-ischemic myocardial injury in setting of CHF, renal dysfunction
-can trend to peak and check echo
-no CP
04/07/25 TTE:
1. Left ventricular ejection fraction is severely reduced with an ejection fraction of 13 % by Paulson's biplane method of discs.
2. Stage I diastolic dysfunction suggestive of abnormal relaxation.
3. Right ventricular systolic function is moderately decreased.
4. Pleural effusion present.
5. No significant valve disease.
6. No prior study available for comparison.
CCT 31 minutes
Physical Exam
Vital Signs/Labs
Vital Signs
Temp Pulse Resp BP Pulse Ox
97.3 F 75 15 110/78 100
04/08/25 08:00 04/08/25 10:30 04/08/25 10:30 04/08/25 10:30 04/08/25 10:30
04/07/25 04/08/25 04/09/25
06:59 06:59 06:59
Actual Weight 64.4 kg 66.4 kg
04/08/25 03:26
04/08/25 03:26
PT 37.8 Sec (11.4-14.6) H 04/08/25 03:26
INR 3.89 04/08/25 03:26
APTT 41.4 Sec (23.4-35.0) H 04/06/25 09:47
Magnesium 2.0 mg/dl (1.6-2.3) 04/07/25 03:35
04/06/25
09:47
Wje-X-Qkonzwxjpbr Pept 15887
LAB Results
04/06/25 04/06/25 04/06/25
09:47 18:01 23:08
Troponin I 0.376 H* 0.278 H* 0.286 H*
04/07/25
03:35
Troponin I 0.326 H*
Physical Exam
Constitutional: No acute distress
Cardiovascular: Rhythm & rate is regular and Pedal edema is absent
Respiratory: Respiratory effort normal and Lungs clear to auscul.
GI: Soft and Distention absent
Neuro/Psych: AO x 3
Data Reviewed
-
Date of Service: April 08, 2025
--- NOTE | 2025-04-08 12:30 | PTCARENOTE ---
Remains resting- overall states he feels ok. Denies pain. Denies shortness of breath. O2 remains off with sats of 98%. VS as documented. Will increase Levophed to 3 mcg as BP's running in the 80's syst and MAP barely 65. Infusing via cordis of swan.
Matt PA/RA cath rezeroed. Complete CHG bath given. Pt did own oral care. Repositioned. Callbell in reach. Pts at the bedside.
[2025-04-08] MEDS: FARXIGA 10 MG PO (13:00)
[2025-04-08] MEDS: VIBRAMYCIN 50 MG PO (13:00)
[2025-04-08 13:10] LABS: Glucose - Point of Care 138 mg/dl (70-99)
[2025-04-08] MEDS: LEVOPHED 250 IV (13:58)
--- NOTE | 2025-04-08 14:30 | PTCARENOTE ---
Remains resting. No complaints. No changes in assessment
[2025-04-08] MEDS: SENOKOT-S 1 TABLET PO (16:51)
--- NOTE | 2025-04-08 17:00 | PTCARENOTE ---
Dozing off and on this afternoon. When awake is alert and oriented. Denies pain. BS remain clear and RA sats are 98-100%. VS as documented. Remains on Levophed at 3 mcg- has maintained MAP's >65. PA and RA lines rezeroed and readings as noted. Mixed
Venous sat set per md order along with additional troponin (last result had not peaked). Denies chest pain. Abd is soft. [place] given as pt has not moved his bowels since admission. Mock draining yellow/brennen urine. Turned and repositioned. Skin
care given. Call pena in reach. Pts at the bedside and updated.
[2025-04-08 17:32] LABS: Troponin I 0.162 ng/ml
--- NOTE | 2025-04-08 18:00 | PTCARENOTE ---
No changes in assessment. Dr. Matute updated on labs as well as hemodynamics and I/o.
[2025-04-08] MEDS: LIPITOR 80 MG PO (18:22)
--- NOTE | 2025-04-08 19:00 | PTCARENOTE ---
vitals captured in flowsheet from prev shift, can verify accuracy of vitals starting at this time for shift.
--- NOTE | 2025-04-08 20:30 | PTCARENOTE ---
mainframe developer, pt aaox3. VPaced, brief episode HR to 1teens ?VT, pacing spikes present- BDoughertyNP aware- BMP/Mg ordered/sent. JESUS MANUEL brasher with PA WNL, thermo#s done/documented. RA Sat 100%. Nish blevins WNL. POC discussed, call pena with pt, care
ongoing.
[2025-04-08 21:30] LABS: Blood Urea Nitrogen 39 mg/dl (9-20); Calcium 8.4 mg/dl (8.4-10.2); Carbon Dioxide 27 mmol/L (22-30); Chloride 99 mmol/L (98-107); Estimated Creatinine Clearance 24 ml/min; Glucose 152 mg/dl (70-99); Magnesium 1.8 mg/dl (1.6-2.3); Potassium 3.6 mmol/L (3.5-5.1); Sodium 128 mmol/L (135-145); eGFR 32.30
[2025-04-08] MEDS: KCL 100 IV (22:19)
[2025-04-08] MEDS: MAGNESIUM SULFATE 102 GRAMS IV (22:20)
[2025-04-08] MEDS: MELATONIN 5 MG PO (22:20)
[2025-04-09] VITALS (35 sets, daily range): BP systolic 74–135; BP diastolic 59–83; BMI 23.1
--- NOTE | 2025-04-09 00:30 | PTCARENOTE ---
BDoughertyNP aware CI < 2, no new orders at this time, VSS, no further changes in assessment.
[2025-04-09 04:00] LABS: INR 2.90; PT 30.2 Sec (11.4-14.6)
--- NOTE | 2025-04-09 04:00 | PTCARENOTE ---
no changes in pt assessment.
[2025-04-09 04:09] LABS: Hematocrit 40.5 % (39.0-52.0); Hemoglobin 13.8 g/dL (13.0-18.0); Mean Corp Hgb Conc. 34.1 g/dL (33.0-37.0); Mean Corpuscular Volume 94.8 fL (80.0-94.0); Platelet Count 90 10^3/uL (130-400); Red Cell Dist. Width 15.9 % (11.5-14.5)
[2025-04-09 04:15] LABS: Blood Urea Nitrogen 40 mg/dl (9-20); Calcium 8.4 mg/dl (8.4-10.2); Carbon Dioxide 24 mmol/L (22-30); Chloride 101 mmol/L (98-107); Estimated Creatinine Clearance 27 ml/min; Glucose 103 mg/dl (70-99); Potassium 4.3 mmol/L (3.5-5.1); Sodium 129 mmol/L (135-145); eGFR 36.66
[2025-04-09] MEDS: SYNTHROID 75 MCG PO (05:47)
--- NOTE | 2025-04-09 07:15 | W.PN.INTV ---
Addendum entered and electronically signed by Bobbi Pickett DO 04/09/25 12:05:
d/c swan and wean pressor to off today
Can transfer to tele per team, we will sign off upon transfer
Original Note:
Today's Communication / Plan
Recommendations
Remains on low dose levophed, diuresis held
Stable on RA, no new complaints
[place] remains, awaiting further recs per cards
Assessment
-
Patient is a 85-year-old gentleman with longstanding history of severe cardiomyopathy, last EF 30% s/p LICENSED FUNERAL DIRECTOR-D, coronary artery disease s/p coronary artery bypass graft, paroxysmal atrial fibrillation on chronic anticoagulation who follows up with
[place] cardiology, presented to emergency room for worsening shortness of breath. Patient reports that over the last few weeks he has been developing increasing swelling of his lower extremities, decreasing appetite, weight gain as well as orthopnea.
Patient today was at cardiac rehab and noted to have tachycardia and was referred to emergency room for further evaluation. In the emergency room he was noted to have atrial fibrillation which was treated with IV amiodarone. He was subsequently
seen by cardiology service and was taken to [facility]er and had a right heart cath performed which was suggestive of pre and post capillary pulmonary hypertension along with significantly elevated biventricular filling pressures consistent with volume
overload. Patient was subsequently admitted to the ICU and erector operator consultation was requested for further input.
Acute on chronic heart failure with reduced ejection fraction with cardiogenic shock
Paroxysmal atrial fibrillation with RVR, with concern for atrial tachycardia with paced rhythm today
TAHIRA with underlying chronic kidney disease
Thrombocytopenia, mild
Hyponatremia
Hyperkalemia
Metabolic acidosis
Elevated troponin
Other medical diagnoses:
Hypothyroidism
History of coronary artery disease s/p coronary artery bypass graft
HFrEF, (EF 30%) s/p LICENSED FUNERAL DIRECTOR-D
PAF on Coumadin
CKD stage 3A
Plan
Stable on RA
Patient has severely reduced ejection fraction, down to 13% on echocardiogram
Right heart cath suggestive of severely elevated filling pressures with pulmonary capillary wedge pressure of 30 and a cardiac index of only 1.3
Initiate milrinone as recommended by cardiology service, continue Lasix IV with the goal of net -1 L over 24 hours
Borderline blood pressure might limit diuresis
s/p swan 04/07/25
Levophed continued per cards
No plan for any other intervention including diuresis
Amiodarone infusion has been started, will continue
Continue cardiac telemetry
Monitor potassium and magnesium level closely
Continue anticoagulation with Coumadin
Suspect this is cardiorenal syndrome. Significantly elevated pulmonary capillary wedge pressure with bilateral pedal edema and worsening renal function
Continue milrinone as well as IV Lasix and monitor input and output closely
Hyponatremia is related to underlying hypervolemia, anticipate improvement with aggressive diuresis and milrinone infusion
Nephrology service on case, serial labs
Continue aspirin, metoprolol if tolerated by blood pressure, statins
Minimally elevated troponin noted, no chest pain, likely in the setting of decompensated heart failure
Cardiology service on case
Diet advancement
PT/OT
DVT prophylaxis. Continue anticoagulation with Coumadin. INR 3.19.
Data:
CXR 03/2025: Small left pleural effusion. Subtle rounded opacity in the left upper lobe, round pneumonia or mass. Follow-up recommended.
RHC 03/2025: 1. 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
2. PA pulsatility noted to be significantly decreased on short R-R intervals suggesting hemodynamic significance of atrial arrhythmia.
ECHO 03/2025: 1. Left ventricular ejection fraction is severely reduced with an ejection fraction of 13 % by Paulson's biplane method of discs.
2. Stage I diastolic dysfunction suggestive of abnormal relaxation.
3. Right ventricular systolic function is moderately decreased.
4. Pleural effusion present.
5. No significant valve disease.
6. No prior study available for comparison.
-----
Critical Care time 31 mins -- The patient is admitted for acute critical illness for the treatment of vital organ failure and/or prevention of further life-threatening conditions. Total care includes time spent in review of history, physical exam,
medications, hemodynamic/ventilator parameters, laboratory data, imaging and discussion with house staff, pharmacy, respiratory therapy, electrical timing device calibrator, and nursing.
Subjective Dataa
Subjective Data
Date of Service:
Date of Service: April 09, 2025
Chief Complaint: Sound Printer Follow Up
Subjective:
No events, on RA
Objective Data
Data Reviewed
Vital Signs / I&O / Oxygen:
Vital Signs
Temp Pulse Resp BP Pulse Ox
97.3 F 73 10 120/76 100
04/09/25 03:18 04/09/25 06:00 04/09/25 06:00 04/09/25 06:00 04/09/25 06:00
Intake and Output
04/08/25 04/09/25 04/10/25
06:59 06:59 06:59
Intake Total 1284.20 / 1291.70 888.4 / 888.4
Output Total 3420 / 3420 1185 / 1185
Balance -2135.80 / -2128.30 -296.6 / -296.6
SaO2 100
Nasal Cannula flow liters per 2
minute
Physical Exam
General: Comfortable and Other (NAD)
HEENT: Normocephalic, Anicteric and Moist Mucous Membranes
Cardiovascular: S1-S2, Regular Rhythm and Peripheral Edema (1+)
Respiratory: Crackles and Non-Labored Respirations
GI: Soft, Non Distended and Non Tender
Neurology: Awake, Alert, Oriented and No Motor Deficits
Skin: Warm, Dry and Good Color
Labs/Micro/Reports
Lab Data
04/09/25 03:26
04/09/25 03:26
Laboratory Results
04/09/25
03:26
PT 30.2 H
INR 2.90
--- NOTE | 2025-04-09 07:51 | PTCARENOTE ---
Updated assessment and vital sign trends. CV hemodynamic trends as ordered. Levophed at 3mcg/min as per cardiology. Will continue to follow diet and nutritional support. Will update plan of cares, mobility and overall critical care trends. Vital
signs and input/output trends ongoing. Update with via phone this am. Will update critical care team in rounds. Patient request to sleep in this am. Calm quiet environment provided.
[2025-04-09] MEDS: PACERONE 400 MG PO ×2 (08:36→20:33)
[2025-04-09] MEDS: TYLENOL 500 MG PO ×2 (08:37→22:53)
[2025-04-09] MEDS: ASPIR LOW (ENTERIC COATED) 81 MG PO (08:37)
--- NOTE | 2025-04-09 09:21 | W.PN.NEPH.PH ---
Today's Communication / Plan
-
on levophed
creatinine approaching baseline
follow bmp
Assessment/Plan
-
85 y/o M, hx of HFrEF, (EF 30%) s/p CRM FUNCTIONAL ANALYST-D, CAD s/p CABG, PAF on Coumadin, CKD stage 3A - known to [facility] - presents to ER for evaluation of dyspnea of exertion. Is found to have rapid A-fib placed on amiodarone drip. He has been having
shortness of breath difficulty talking for the last couple days he has been doing cardiac rehab and was noted to be tachycardic and sent to the emergency room..
Echocardiogram done today showed ejection fraction down to 13%.
Renal consult for acute kidney injury creatinine of 2.3 from 1.13 January 2025
Follows outpatient with Dr. Rodriges
Impression.
Acute on chronic kidney disease with a baseline creatinine of 1.6-1.7 outpatient January 2025
Acute on chronic CHF. (Cardiogenic shock)
CAD/history of CABG
Hyperkalemia
Hyponatremia 126
PAF with rapid ventricular response/pacer
Plan.
Right heart cath : Pulmonary capillary wedge pressure 30 04/06 , now 16-18 after RHC on 04/07 cardiac index 1.8
levophed for pressor support to keep MAP ~65, milrinone now off
Creatinine down to 1.8 and non oliguric ~ 1liter with improving hyponatremia
Patient remains hemodynamically unstable in setting of cardiogenic shock
Maintain fluid restriction and continue diuresis in setting of hyponatremia secondary to underlying congestive heart failure
Cardiology holding diuretics weight stable
Patient remains critically ill with decompensated congestive heart failure in setting of cardiogenic shock with associated hemodynamic instability on Levophed support
31 minutes of critical care time spent with patient
-
-
Date of Service: April 09, 2025
CC / HPI / ROS
-
Chief Complaint:
Acute kidney injury
History of Present Illness:
Creatinine unchanged at 1.8
Hemodynamically labile on Levophed
Hyponatremia improved
Review of Systems:
Nonoliguric via Mock around 1000 cc
No fever
Weights down
Labs
-
Labs:
WBC 8.2 10^3/uL (4.8-10.8) 04/09/25 03:26
RBC 4.27 10^6/uL (4.70-6.10) L 04/09/25 03:26
Hgb 13.8 g/dL (13.0-18.0) 04/09/25 03:26
Hct 40.5 % (39.0-52.0) 04/09/25 03:26
Plt Count 90 10^3/uL (130-400) L 04/09/25 03:26
Sodium 129 mmol/L (135-145) L 04/09/25 03:26
Potassium 4.3 mmol/L (3.5-5.1) 04/09/25 03:26
Chloride 101 mmol/L (98-107) 04/09/25 03:26
Carbon Dioxide 24 mmol/L (22-30) 04/09/25 03:26
BUN 40 mg/dl (9-20) H 04/09/25 03:26
Creatinine 1.8 mg/dL (0.7-1.3) H 04/09/25 03:26
eGFR 36.66 04/09/25 03:26
Glucose 103 mg/dl (70-99) H 04/09/25 03:26
Calcium 8.4 mg/dl (8.4-10.2) 04/09/25 03:26
Phosphorus 4.2 mg/dl (2.5-4.5) 04/06/25 09:47
Ijc-G-Babxjchlsde Pept 56044 pg/ml 04/06/25 09:47
Albumin 4.0 g/dl (3.5-5.0) 04/06/25 09:47
Physical Exam
-
Vital Signs:
Vital Signs
Temp Pulse Resp BP Pulse Ox
97.7 F 78 20 113/83 100
04/09/25 08:56 04/09/25 08:56 04/09/25 08:56 04/09/25 08:56 04/09/25 08:56
Cardiovascular:: Regular rate and rhythm (Irregular irregular)
Respiratory:: Bilateral: CTA
Lung Excursion:: Normal
Abdomen:: Nontender and Soft
Bowel Sounds:: Normal
Extremity Edema:: None: Bilateral:
Mock Catheter: Yes
--- NOTE | 2025-04-09 10:20 | PTCARENOTE ---
Update with [facility] team and nephrology this am. Await cardiology plan of cares. Continue vs trends and input/output strict trends. Ongoing assessment follow up remains unchanged. Eating breakfast, talking on phone with , and interactive
with staff. Continue with teaching and supportive cares.
[2025-04-09] MEDS: LEVOPHED 250 IV (11:24)
--- NOTE | 2025-04-09 11:35 | W.PN.CD ---
Today's Communication / Plan
-
No Lasix today
Add Valsartan 40 bid
Remove PA catheter/Lavonia
OK to remove Mock from our perspective
Impression / Plan
-
Cardiogenic Shock with Kyhmr-de-ycpkzez HFrEF, LVEF 13%
- MVO2 of 65 is favorable. Reviewed with Dr. Matute last evening, since MVO2 good => wean levo, PA catheter can be removed, add back some oral meds, no milrinone
- Weight down now to 63.1 kg (admit 667 kg with different scale)
- hold metoprolol until on some vasodilators (Valsartan and later move to Entresto if BP permits and if BP permits when BB added back use Coreg over metoprolol)
- Lasix on Hold, Last Lasix 04/07/2025, anticipate resuming soon
- On dapa, continue
- Add low dose Valsartan, BP has been soft for Entresto
- Not ready for BB yet
- Later add MRA back
PAF/Flutter (typical we think)/ and a slower AT, paroxysmal
-device interrogation reviewed with EP and shows atrial tachycardia (453 ms = 132 bpm)
- NOW in SINUS at slower rated (04/08/2025 and still in sinus 04/09/2025)
-likely contributing to HF exacerbation
-Complete IV amiodarone load and then begin Amiodarone 400mg bid
-This requires intensive monitoring.
-On chronic warfarin, will need adjustment with higher Amiodarone dose
ICM EF 29 => 13 % on 04/06/2025 by echo here:
-follows with advanced HF and EP at [facility]
-LAW LIBRARIAN-D in place (BS)- interrogation done in ER - see below
-home regimen: BB, SGLT2I, ARNI, and MRA
Hyponatremia:
-needs monitoring with diuresis
TAHIRA on CKD: Cr approaching baseline perhaps
-last OP creatinine in [facility] : 1.7
-Dr. Rodriges is icer air conditioning, nephro following
-likely cardiorenal etiology
CAD with hx CABG:
-no CP
-continue ASA, statin, BB
-recent op Lexiscan with large infarct but no ischemia
Abnormal CXR:
-CXR: Small left pleural effusion. Subtle rounded opacity in the left upper lobe, round pneumonia or mass. Follow-up recommended. Management per IM.
Abnormal troponin:
-suspect acute, non-ischemic myocardial injury in setting of CHF, renal dysfunction
-can trend to peak and check echo
-no CP
Subjective:
No CP or dyspnea at rest
RHC (04/07/2025) after this data below we chose to sit tight on Levophed and not add milrinone/dobutamine
Corrected data from 04/07/2025
HEMODYNAMIC DATA - on 4 norepi
SBP 103/58 (mean 75) mmHg
RA 19 mmHg
RV 42/1 (EDP 12) mmHg
PA 47/16 (mean 24) mmHg
PCWP 18 mmHg
SaO2 97.0%
SvO2 61.2%
Hb 13.0 g/dL
CO/CI 3.41/2.00 L/min/m2
SVR 1314 dsc*-5
PVR 1.76 Wood units
04/07/25 TTE:
1. Left ventricular ejection fraction is severely reduced with an ejection fraction of 13 % by Paulson's biplane method of discs.
2. Stage I diastolic dysfunction suggestive of abnormal relaxation.
3. Right ventricular systolic function is moderately decreased.
4. Pleural effusion present.
5. No significant valve disease.
6. No prior study available for comparison.
CCT 31 minutes
Physical Exam
Vital Signs/Labs
Vital Signs
Temp Pulse Resp BP Pulse Ox
97.8 F 73 13 120/78 100
04/09/25 11:13 04/09/25 10:00 04/09/25 10:00 04/09/25 10:00 04/09/25 10:19
04/08/25 04/09/25 04/10/25
06:59 06:59 06:59
Actual Weight 66.4 kg 63.1 kg
04/09/25 03:26
04/09/25 03:26
PT 30.2 Sec (11.4-14.6) H 04/09/25 03:26
INR 2.90 04/09/25 03:26
APTT 41.4 Sec (23.4-35.0) H 04/06/25 09:47
Magnesium 1.8 mg/dl (1.6-2.3) 04/08/25 20:48
04/06/25
09:47
Xch-J-Esmdtaxxjtb Pept 44976
LAB Results
04/06/25 04/06/25 04/07/25
18:01 23:08 03:35
Troponin I 0.278 H* 0.286 H* 0.326 H*
04/08/25
16:39
Troponin I 0.162 H*
Physical Exam
Constitutional: No acute distress
EENT: Anicteric
Cardiovascular: Rhythm & rate is regular and Pedal edema is absent
Respiratory: Respiratory effort normal and Lungs clear to auscul.
GI: Soft and Distention absent
Neuro/Psych: AO x 3
Data Reviewed
-
Date of Service: April 09, 2025
--- NOTE | 2025-04-09 11:46 | PTCARENOTE ---
Update plan of cares Cardiology, wildlife technician and hospitalist met this morning to collaborate cares. Plan to dc swan/cath. Titrate levophe as tolerated. Presently at 2mcg/min. Continue input/output trends. Will update pt/ot and start mobility
protocols.
--- NOTE | 2025-04-09 12:30 | PTCARENOTE ---
Update with family at bedside. Discuss plan of cares for day. Follow up PT/OT plan of cares. Continued updates with cardiology, josé to start once levophed maintained off for several hours. Continue with teaching and follow up assessment trends.
[2025-04-09] MEDS: VIBRAMYCIN 50 MG PO (12:37)
[2025-04-09] MEDS: FARXIGA 10 MG PO (12:37)
--- NOTE | 2025-04-09 14:29 | W.PN.HOSP.TC ---
Today's Communication/Plan
-
dc Alger
dc ríos
Tele transfer
follow cards/renal recs
Assessment / Plan
Assessment / Plan
Assessment:
Cardiogenic Shock
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
- CO 2.3/13.5
- stopped Milrinone due to hypotension; Levophed now weaned off
- Alger placed 04/07 and discontinued 04/09
- follow CBC Cardiology recs
Btesp-li-xantvea HFrEF (NHYA class II to IV)
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
- life threatening diagnosis with concurrent TAHIRA, electrolyte abnormalities, known advanced CHF
- continue IV Lasix - requires intensive monitoring of I/Os, weights, lytes.
- GMDT: BB/SGLT2/ARNI/MRA
- Echo: EF 13%, stage 1 DD, RV reduced systolic dysfunction
- CBC cards following
Parox A. Fib with RVR
- device interrogation per Cards showed atrial tachycardia/poss aflutter. Now back in SR without intervention.
- s/p IV Amiodarone load. Continue oral Amiodarone 400mg BID
- holding Coumadin for supratherapeutic INR
nonischemic myocardial injury in setting of CHF, renal failure
- trend to peak
Acute Hyperkalemia
- s/p temporization in ER
Acute hypervolemic hyponatremia
TAHIRA on CKD3a, cardiorenal in setting of acute CHF
- Nephrology following
- follow labs with ongoing diuresis
CAD with hx CABG:
- no CP
- continue ASA, statin, BB
- recent op Lexiscan with large infarct but no ischemia
Abnormal CXR:
- CXR: Small left pleural effusion. Subtle rounded opacity in the left upper lobe, round pneumonia or mass.
- consider CT chest
- no infectious signs/symptoms
Thrombocytopenia
- monitor, no signs of bleeding
Hypothyroidism - continue replacement
DVT ppx: supratherapeutic INR
Code: Full
Total Critical Care Time 41 minutes. I was immediately available to the patient and staff. I personally examined, reviewed labs, diagnostic images/reports, interpretations, treatment plans, discussed patient care with other providers and family or
caregivers (if patient is unable to make decisions), entered orders as appropriate and documented the medical record.
Anticipated Discharge: > 48 hours
Subjective/Interval History
-
Date of Service: April 09, 2025
no cp or SOB
swan removed
Objective Data
-
Labs:
Laboratory Results
04/09/25
03:26
WBC 8.2
Hgb 13.8
Hct 40.5
Plt Count 90 L
PT 30.2 H
INR 2.90
Sodium 129 L
Potassium 4.3
Chloride 101
Carbon Dioxide 24
BUN 40 H
Creatinine 1.8 H
Glucose 103 H
Calcium 8.4
Vital Signs:
Vital Signs
Temp Pulse Resp BP Pulse Ox
97.8 F 74 19 99/65 98
04/09/25 11:13 04/09/25 13:30 04/09/25 13:30 04/09/25 13:00 04/09/25 13:38
I&O
04/08/25 04/09/25 04/10/25
06:59 06:59 06:59
Intake Total 1284.20 / 1291.70 888.4 / 899.9 364.7 / 364.7
Output Total 3420 / 3420 1185 / 1235 600 / 600
Balance -2135.80 / -2128.30 -296.6 / -335.1 -235.3 / -235.3
Physical Exam
-
General: No Apparent Distress
HEENT: Normocephalic and Atraumatic
Respiratory: Negative Wheezes
Cardiac: Regular Rhythm and S1/S2
GI: Soft
Neuro: AO x 3
Psych: Calm
Data Reviewed
-
Critical Care Time (in minutes): 41
Labs: Labs Reviewed by me
[2025-04-09] MEDS: TYLENOL PO (16:32)
[2025-04-09] MEDS: LIPITOR 80 MG PO (17:25)
--- NOTE | 2025-04-09 17:41 | PTCARENOTE ---
Assessment unchanged. VSS MAP remain greater than 65. Nish santiago'rip. Patient out of bed to chair one person assist. Lunch and dinner in chair with several practice sessions of sit to stand reposition. Family updated plan of cares. Supportive cares and
skin cares ongoing. Continue hourly rounds frequent safety checks and call pena in use as needed.
--- NOTE | 2025-04-09 18:30 | PTCARENOTE ---
Updated assessment. Review with block breaker operator team. Following input output trends. Vital sign trends. Possible upgrade patient to IMU, may need low dose levophed. Continue trends. Patient remains comfortable at this time. Will be d/t void by 2300hrs.
Ordered dinner at this time. Follow up mediations via emar. Call pena in reach and in use.
--- NOTE | 2025-04-09 19:19 | PTCARENOTE ---
vitals captured from prev shift, can verify VS starting at 1900 for shift, KFlahertyNP aware of mult low BP readings- levo gtt order placed for MAP goal > 65.
--- NOTE | 2025-04-09 20:00 | PTCARENOTE ---
display screen fabricator, aaox3, assist x 1 back to bed. B/L IV WNL. MAPs now in 70s, hold levo gtt for now. pt set up to eat dinner. POC discussed, call pena with pt.
[2025-04-09] MEDS: DIOVAN PO (20:27)
[2025-04-09] MEDS: SENOKOT-S 1 TABLET PO (20:33)
[2025-04-09] MEDS: MELATONIN 5 MG PO (22:53)
[2025-04-10] VITALS (26 sets, daily range): BP systolic 93–115; BP diastolic 58–77; PULSE 75–78; BMI 23.2
--- NOTE | 2025-04-10 04:00 | PTCARENOTE ---
no changes in assessment.
[2025-04-10] MEDS: SYNTHROID 75 MCG PO (04:52)
[2025-04-10 05:06] LABS: Hematocrit 42.0 % (39.0-52.0); Hemoglobin 14.1 g/dL (13.0-18.0); Mean Corp Hgb Conc. 33.6 g/dL (33.0-37.0); Mean Corpuscular Volume 96.8 fL (80.0-94.0); Platelet Count 74 10^3/uL (130-400); Red Cell Dist. Width 15.7 % (11.5-14.5)
[2025-04-10 05:11] LABS: INR 1.94; PT 22.3 Sec (11.4-14.6)
[2025-04-10 05:22] LABS: Blood Urea Nitrogen 39 mg/dl (9-20); Calcium 8.9 mg/dl (8.4-10.2); Carbon Dioxide 25 mmol/L (22-30); Chloride 102 mmol/L (98-107); Estimated Creatinine Clearance 27 ml/min; Glucose 81 mg/dl (70-99); Potassium 4.0 mmol/L (3.5-5.1); Sodium 131 mmol/L (135-145); eGFR 36.66
--- NOTE | 2025-04-10 08:14 | W.PN.CD ---
Today's Communication / Plan
-
contnue to asses pressures when outof bed
continue to assess need for diuretic
Impression / Plan
-
Cardiogenic Shock with Nfwls-ff-gcyhbjm HFrEF, LVEF 13%
- MVO2 of 65 is favorable. Reviewed with Dr. Matute last evening, since MVO2 good => wean levo, PA catheter can be removed, add back some oral meds, no milrinone
- Weight down now to 63.1 kg (admit 667 kg with different scale)
- hold metoprolol until on some vasodilators (Valsartan and later move to Entresto if BP permits and if BP permits when BB added back use Coreg over metoprolol)
- Lasix on Hold, Last Lasix 04/07/2025, continue to assess restart
- On dapa, continue
- Cr back to baseline. BP has been relatively . Will consider low dose valsartan
- Not ready for BB yet
- Later add MRA back
PAF/Flutter (typical we think)/ and a slower AT, paroxysmal
-device interrogation reviewed with EP and shows atrial tachycardia (453 ms = 132 bpm)
- sinus 04/08/2025 and 04/09/2025 now wtih sinsu for atrial tachcyardia and pacs
-likely contributing to HF exacerbation
-Complete IV amiodarone load and then begin Amiodarone 400mg bid
-This requires intensive monitoring.
-On chronic warfarin, will need adjustment with higher Amiodarone dose
ICM EF 29 => 13 % on 04/06/2025 by echo here:
-follows with advanced HF and EP at [facility]
-LOOM MECHANIC-D in place (BS)- interrogation done in ER - see below
-home regimen: BB, SGLT2I, ARNI, and MRA
Hyponatremia:
-needs monitoring with diuresis
TAHIRA on CKD: Cr approaching baseline perhaps
-last OP creatinine in [facility] : 1.7
-Dr. Rodriges is car rental sales assistant, nephro following
-likely cardiorenal etiology
CAD with hx CABG:
-no CP
-continue ASA, statin, BB
-recent op Lexiscan with large infarct but no ischemia
Abnormal CXR:
-CXR: Small left pleural effusion. Subtle rounded opacity in the left upper lobe, round pneumonia or mass. Follow-up recommended. Management per IM.
Abnormal troponin:
-suspect acute, non-ischemic myocardial injury in setting of CHF, renal dysfunction
-can trend to peak and check echo
-no CP
Subjective:
No CP or dyspnea at rest
RHC (04/07/2025) after this data below we chose to sit tight on Levophed and not add milrinone/dobutamine
Corrected data from 04/07/2025
HEMODYNAMIC DATA - on 4 norepi
SBP 103/58 (mean 75) mmHg
RA 19 mmHg
RV 42/1 (EDP 12) mmHg
PA 47/16 (mean 24) mmHg
PCWP 18 mmHg
SaO2 97.0%
SvO2 61.2%
Hb 13.0 g/dL
CO/CI 3.41/2.00 L/min/m2
SVR 1314 dsc*-5
PVR 1.76 Wood units
04/07/25 TTE:
1. Left ventricular ejection fraction is severely reduced with an ejection fraction of 13 % by Paulson's biplane method of discs.
2. Stage I diastolic dysfunction suggestive of abnormal relaxation.
3. Right ventricular systolic function is moderately decreased.
4. Pleural effusion present.
5. No significant valve disease.
6. No prior study available for comparison.
CCT 31 minutes
Physical Exam
Vital Signs/Labs
Vital Signs
Temp Pulse Resp BP Pulse Ox
97.8 F 73 14 114/71 100
04/09/25 19:37 04/10/25 06:00 04/10/25 06:00 04/10/25 06:00 04/10/25 06:00
04/09/25 04/10/25 04/11/25
06:59 06:59 06:59
Actual Weight 63.1 kg 63.2 kg
04/10/25 04:41
04/10/25 04:41
PT 22.3 Sec (11.4-14.6) H 04/10/25 04:41
INR 1.94 04/10/25 04:41
APTT 41.4 Sec (23.4-35.0) H 04/06/25 09:47
Magnesium 1.8 mg/dl (1.6-2.3) 04/08/25 20:48
04/06/25
09:47
Sbd-P-Hpwjpardrzz Pept [id number]
LAB Results
04/08/25
16:39
Troponin I 0.162 H*
Physical Exam
Constitutional: No acute distress
Cardiovascular: Rhythm & rate is regular
Respiratory: Wheeze Absent and Rhonchi Absent
GI: Soft, Non tender and Normal bowel sounds
Neuro/Psych: Alert
Data Reviewed
-
Date of Service: April 10, 2025
Medical Decision Making: Reviewed Test Results
Medical Tests (PFT, Pathology etc): Report Reviewed by me
Labs: Labs Reviewed by me
[2025-04-10] MEDS: ASPIR LOW (ENTERIC COATED) 81 MG PO (08:37)
[2025-04-10] MEDS: PACERONE 400 MG PO ×2 (08:37→20:12)
[2025-04-10] MEDS: DIOVAN 40 MG PO ×2 (08:37→20:12)
[2025-04-10] MEDS: TYLENOL 500 MG PO ×2 (08:37→22:11)
--- NOTE | 2025-04-10 09:03 | W.PN.NEPH.PH ---
Today's Communication / Plan
-
follow bmp
likely start low dose lasix tomorrrow
Assessment/Plan
-
85 y/o M, hx of HFrEF, (EF 30%) s/p BASTING MACHINE OPERATOR-D, CAD s/p CABG, PAF on Coumadin, CKD stage 3A - known to [facility] - presents to ER for evaluation of dyspnea of exertion. Is found to have rapid A-fib placed on amiodarone drip. He has been having
shortness of breath difficulty talking for the last couple days he has been doing cardiac rehab and was noted to be tachycardic and sent to the emergency room..
Echocardiogram done today showed ejection fraction down to 13%.
Renal consult for acute kidney injury creatinine of 2.3 from .13 January 2025
Follows outpatient with Dr. Rodriges
Impression.
Acute on chronic kidney disease with a baseline creatinine of 1.6-1.7 outpatient January 2025
Acute on chronic CHF. (Cardiogenic shock)
CAD/history of CABG
Hyperkalemia
Hyponatremia 126
PAF with rapid ventricular response/pacer
Plan.
Right heart cath : Pulmonary capillary wedge pressure 30 04/06 , now 16-18 after RHC on 04/07 cardiac index 1.8
levophed for pressor support to keep MAP ~65, milrinone now off
Creatinine down to 1.8 and non oliguric ~ < 1liter with improving hyponatremia to 131
Patient hemodynamically more stable in setting of cardiogenic shock
Now on low-dose valsartan 40 mg twice daily for afterload reduction
Maintain fluid restriction and continue diuresis in setting of hyponatremia secondary to underlying congestive heart failure
Cardiology holding diuretics weight stable, would advise starting low-dose oral Lasix tomorrow start with 20mg
Patient remains critically ill with decompensated congestive heart failure in setting of cardiogenic shock with associated hemodynamic instability on Levophed support
31 minutes of critical care time spent with patient
-
-
Date of Service: April 10, 2025
CC / HPI / ROS
-
Chief Complaint:
Acute kidney injury
History of Present Illness:
Creatinine unchanged at 1.8
Hemodynamically labile off pressors
Hyponatremia improved
Review of Systems:
Nonoliguric via Mock around 1000 cc
No fever
Weights down
Labs
-
Labs:
WBC 6.4 10^3/uL (4.8-10.8) 04/10/25 04:41
RBC 4.34 10^6/uL (4.70-6.10) L 04/10/25 04:41
Hgb 14.1 g/dL (13.0-18.0) 04/10/25 04:41
Hct 42.0 % (39.0-52.0) 04/10/25 04:41
Plt Count 74 10^3/uL (130-400) L 04/10/25 04:41
Sodium 131 mmol/L (135-145) L 04/10/25 04:41
Potassium 4.0 mmol/L (3.5-5.1) 04/10/25 04:41
Chloride 102 mmol/L (98-107) 04/10/25 04:41
Carbon Dioxide 25 mmol/L (22-30) 04/10/25 04:41
BUN 39 mg/dl (9-20) H 04/10/25 04:41
Creatinine 1.8 mg/dL (0.7-1.3) H 04/10/25 04:41
eGFR 36.66 04/10/25 04:41
Glucose 81 mg/dl (70-99) 04/10/25 04:41
Calcium 8.9 mg/dl (8.4-10.2) 04/10/25 04:41
Phosphorus 4.2 mg/dl (2.5-4.5) 04/06/25 09:47
Cas-M-Msekhpivhqt Pept 33673 pg/ml 04/06/25 09:47
Albumin 4.0 g/dl (3.5-5.0) 04/06/25 09:47
Physical Exam
-
Vital Signs:
Vital Signs
Temp Pulse Resp BP Pulse Ox
98.2 F 78 22 112/75 98
04/10/25 08:00 04/10/25 08:53 04/10/25 08:53 04/10/25 08:53 04/10/25 08:53
Cardiovascular:: Regular rate and rhythm (Irregular irregular)
Respiratory:: Bilateral: CTA
Lung Excursion:: Normal
Abdomen:: Nontender and Soft
Bowel Sounds:: Normal
Extremity Edema:: None: Bilateral:
Mock Catheter: Yes
--- NOTE | 2025-04-10 10:01 | PTCARENOTE ---
Patient request to sleep in this am. Patient breakfast ordered and aside for later. Am labs medications as ordered. Continue with ongoing teaching and supportive cares. Follow up cardiovascular assessment as ordered. Levophed off since early this
am. Medications via emar with follow up. Update with patient via phone and follow up at bedside this am.
--- NOTE | 2025-04-10 11:50 | W.PN.HOSP.TC ---
Today's Communication/Plan
-
ARB with parameters
Amio dosing per cardiology
assess sitting BPs
possible IVU transfer
Assessment / Plan
Assessment / Plan
Assessment:
Cardiogenic Shock
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
- CO 2.3/13.5
- stopped Milrinone due to hypotension; Levophed now weaned off
- Toone placed 04/07 and discontinued 04/09
- follow CBC Cardiology recs
Dbhwp-gv-mhokppy HFrEF (NHYA class II to IV)
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
- life threatening diagnosis with concurrent TAHIRA, electrolyte abnormalities, known advanced CHF
- s/p IV Lasix course. likely resume oral Lasix 04/11
- GMDT: BB/SGLT2/ARNI/MRA as tolerable
- Echo: EF 13%, stage 1 DD, RV reduced systolic dysfunction
- CBC cards following
Parox A. Fib with RVR
- device interrogation per Cards showed atrial tachycardia/poss aflutter. Now back in SR without intervention.
- s/p IV Amiodarone load. Continue oral Amiodarone 400mg BID
- resume Coumadin (INR is 1.94) - 2mg daily due to higher Amio dose
nonischemic myocardial injury in setting of CHF, renal failure
- trend to peak
Acute Hyperkalemia
- s/p temporization in ER
Acute hypervolemic hyponatremia
TAHIRA on CKD3a, cardiorenal in setting of acute CHF
- Nephrology following
- follow labs
CAD with hx CABG:
- no CP
- continue ASA, statin, BB
- recent op Lexiscan with large infarct but no ischemia
Abnormal CXR:
- CXR: Small left pleural effusion. Subtle rounded opacity in the left upper lobe, round pneumonia or mass.
- consider CT chest
- no infectious signs/symptoms
Thrombocytopenia
- monitor, no signs of bleeding
Hypothyroidism - continue replacement
DVT ppx: supratherapeutic INR
Code: Full
Total Critical Care Time 41 minutes. I was immediately available to the patient and staff. I personally examined, reviewed labs, diagnostic images/reports, interpretations, treatment plans, discussed patient care with other providers and family or
caregivers (if patient is unable to make decisions), entered orders as appropriate and documented the medical record.
Dispo: possible IVU transfer if BP stable while sitting.
Anticipated Discharge: > 48 hours
Subjective/Interval History
-
Date of Service: April 10, 2025
weights decreasing
briefly required Levophed for 3 hours but now off - Levophed for hypotension while sitting in chair
Objective Data
-
Labs:
Laboratory Results
04/10/25
04:41
WBC 6.4
Hgb 14.1
Hct 42.0
Plt Count 74 L
PT 22.3 H
INR 1.94
Sodium 131 L
Potassium 4.0
Chloride 102
Carbon Dioxide 25
BUN 39 H
Creatinine 1.8 H
Glucose 81
Calcium 8.9
Vital Signs:
Vital Signs
Temp Pulse Resp BP Pulse Ox
97.7 F 98 15 93/59 100
04/10/25 11:43 04/10/25 09:30 04/10/25 09:30 04/10/25 09:00 04/10/25 09:30
I&O
04/09/25 04/10/25 04/11/25
06:59 06:59 06:59
Intake Total 888.4 / 899.9 1034.7 / 1034.7 60 / 60
Output Total 1185 / 1235 1100 / 1100
Balance -296.6 / -335.1 -65.3 / -65.3
Physical Exam
-
General: No Apparent Distress
HEENT: Normocephalic and Atraumatic
Respiratory: Negative Wheezes
Cardiac: Regular Rhythm and S1/S2
GI: Soft
Neuro: AO x 3
Psych: Calm
Data Reviewed
-
Total Time Spent with Patient (in minutes): 42
Labs: Labs Reviewed by me
[2025-04-10] MEDS: FARXIGA 10 MG PO (12:47)
[2025-04-10] MEDS: VIBRAMYCIN 50 MG PO (12:47)
[2025-04-10] MEDS: TYLENOL PO (15:47)
[2025-04-10] MEDS: LIPITOR 80 MG PO (18:15)
[2025-04-10] MEDS: COUMADIN 2 MG PO (18:16)
--- NOTE | 2025-04-10 19:00 | PTCARENOTE ---
vitals verified from prev shift, can only verify accuracy of vitals starting at this time for shift.
--- NOTE | 2025-04-10 19:20 | PTCARENOTE ---
rn psych, pt aaox3, set up for dinner, RW IV WNL. VPaced HR 70s. POC discussed, call pena with pt.
[2025-04-10] MEDS: MELATONIN 5 MG PO (22:11)
[2025-04-11] VITALS (22 sets, daily range): BP systolic 81–115; BP diastolic 61–90; BMI 23.8; BMI 23.1; BMI 22.9
[2025-04-11 04:59] LABS: INR 1.97; PT 22.6 Sec (11.4-14.6)
[2025-04-11 05:00] LABS: Blood Urea Nitrogen 37 mg/dl (9-20); Calcium 8.9 mg/dl (8.4-10.2); Carbon Dioxide 26 mmol/L (22-30); Chloride 103 mmol/L (98-107); Estimated Creatinine Clearance 28 ml/min; Glucose 86 mg/dl (70-99); Hematocrit 39.3 % (39.0-52.0); Hemoglobin 13.2 g/dL (13.0-18.0); Mean Corp Hgb Conc. 33.6 g/dL (33.0-37.0); Mean Corpuscular Volume 96.3 fL (80.0-94.0); Platelet Count 81 10^3/uL (130-400); Potassium 4.0 mmol/L (3.5-5.1); Red Cell Dist. Width 16.1 % (11.5-14.5); Sodium 131 mmol/L (135-145); eGFR 39.26
[2025-04-11] MEDS: SYNTHROID 75 MCG PO (06:20)
--- NOTE | 2025-04-11 09:00 | PTCARENOTE ---
Rec'd pt at 0800 awake alert and oriented resting in bed. Overall states he had a good night. Denies pain or discomfort currently. REED. Speech is clear. Denies dizziness or headache. Skin is pink wm and dry. Dressing taken off of RAC site (old cath
site) Site wnl. L elbow dressing is D+I. Respirs are unlabored on RA with sats of 98%. BS are clear. Monitor Vpaced 70-80's. . VS as documented. Denies chest pain. + pulses. DP pulses are weak. Tr LLE edema. Abd is soft with BS. Denies nausea.
Voiding yellow urine via the urinal. Capped int intact R wrist. Plan of care reviewed with pt. Call pena in reach.
[2025-04-11] MEDS: PACERONE 400 MG PO ×2 (09:04→19:38)
[2025-04-11] MEDS: DIOVAN 40 MG PO ×2 (09:04→19:38)
[2025-04-11] MEDS: TYLENOL 500 MG PO ×3 (09:04→21:23)
[2025-04-11] MEDS: ASPIR LOW (ENTERIC COATED) 81 MG PO (09:04)
--- NOTE | 2025-04-11 09:10 | W.PN.CD ---
Today's Communication / Plan
-
furosemide 40mg daily
continue amiodarone
tubigrips
Impression / Plan
-
Cardiogenic Shock with Hycax-qe-vehvero HFrEF, LVEF 13%
- MVO2 of 65 is favorable. PCWP 18 at 141lbs.
- hold metoprolol until bp stable on some vasodilators (Valsartan and later move to Entresto) and can maintain volume status
- Lasix on Hold,Wt now up 4lbs , he claims to be lasix niave. Will start with fursomide 40mg po and assess response and monitor bp.
- On dapa, continue
- Cr back to baseline.
- Not ready for BB yet
- Later add MRA back (typically on eplerenone)
-add tubigrips
PAF/Flutter (typical we think)/ and a slower AT, paroxysmal
-device interrogation reviewed with EP and shows atrial tachycardia (453 ms = 132 bpm)
- sinus 04/08/2025 and 04/09/2025 now wtih sinus for atrial tachycardia and pacs
-likely contributing to HF exacerbation
-Completed IV amiodarone load and now Amiodarone 400mg bid drop to 200mg daily on discharge
-This requires intensive monitoring.
-On chronic warfarin, will need adjustment with higher Amiodarone dose
ICM EF 29 => 13 % on 04/06/2025 by echo here:
-follows with advanced HF and EP at [facility]
-ADVERTISING EDITOR-D in place (BS)- interrogation done in ER - see below
-home regimen: BB, SGLT2I, ARNI, and MRA
Hyponatremia:
-needs monitoring with diuresis
-improving
TAHIRA on CKD: Cr approaching baseline perhaps
-last OP creatinine in [facility] : 1.7---now 1.7
-Dr. Rodriges is nurse intern, nephro following
-likely cardiorenal etiology
CAD with hx CABG:
-no CP
-continue ASA, statin, BB
-recent op Lexiscan with large infarct but no ischemia
Abnormal CXR:
-CXR: Small left pleural effusion. Subtle rounded opacity in the left upper lobe, round pneumonia or mass. Follow-up recommended. Management per IM.
Abnormal troponin:
-suspect acute, non-ischemic myocardial injury in setting of CHF, renal dysfunction
-can trend to peak and check echo
-no CP
Subjective:
No CP or dyspnea at rest, oob to chair yesterday without issue
RHC (04/07/2025) after this data below we chose to sit tight on Levophed and not add milrinone/dobutamine
Corrected data from 04/07/2025
HEMODYNAMIC DATA - on 4 norepi Wt
SBP 103/58 (mean 75) mmHg
RA 19 mmHg
RV 42/1 (EDP 12) mmHg
PA 47/16 (mean 24) mmHg
PCWP 18 mmHg
SaO2 97.0%
SvO2 61.2%
Hb 13.0 g/dL
CO/CI 3.41/2.00 L/min/m2
SVR 1314 dsc*-5
PVR 1.76 Wood units
04/07/25 TTE:
1. Left ventricular ejection fraction is severely reduced with an ejection fraction of 13 % by Paulson's biplane method of discs.
2. Stage I diastolic dysfunction suggestive of abnormal relaxation.
3. Right ventricular systolic function is moderately decreased.
4. Pleural effusion present.
5. No significant valve disease.
6. No prior study available for comparison.
CCT 31 minutes
Physical Exam
Vital Signs/Labs
Vital Signs
Temp Pulse Resp BP Pulse Ox
97.3 F 76 15 106/78 98
04/11/25 07:50 04/11/25 09:04 04/11/25 06:00 04/11/25 09:04 04/11/25 04:04
04/10/25 04/11/25 04/12/25
06:59 06:59 06:59
Actual Weight 139 lb 5.314 oz 143 lb 4.807 oz
04/11/25 04:15
04/11/25 04:15
PT 22.6 Sec (11.4-14.6) H 04/11/25 04:15
INR 1.97 04/11/25 04:15
APTT 41.4 Sec (23.4-35.0) H 04/06/25 09:47
Magnesium 1.8 mg/dl (1.6-2.3) 04/08/25 20:48
04/06/25
09:47
Eft-T-Ztlgyqvbyun Pept 48032
LAB Results
04/08/25
16:39
Troponin I 0.162 H*
Data Reviewed
-
Date of Service: April 11, 2025
[2025-04-11] MEDS: LASIX 40 MG PO (10:26)
--- NOTE | 2025-04-11 10:32 | W.PN.NEPH.PH ---
Today's Communication / Plan
-
follow labs
Assessment/Plan
-
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 Is found to have rapid A-fib placed on amiodarone drip. He has been having
shortness of breath difficulty talking for the last couple days he has been doing cardiac rehab and was noted to be tachycardic and sent to the emergency room..
Echocardiogram done today showed ejection fraction down to 13%.
Renal consult for acute kidney injury creatinine of 2.3 from 1.13 January 2025
Follows outpatient with Dr. Rodriges
Impression.
Acute on chronic kidney disease with a baseline creatinine of 1.6-1.7 outpatient January 2025
Acute on chronic CHF. (Cardiogenic shock)
CAD/history of CABG
Hyperkalemia
Hyponatremia 126
PAF with rapid ventricular response/pacer
Plan.
Right heart cath : Pulmonary capillary wedge pressure 30 04/06 , now 16-18 after RHC on 04/07 cardiac index 1.8
off milrinone and levo
Creatinine down to 1.7 close to baseline , ok to resume diuretics today
stable hyponatremia maintain FR
BP soft on low dose BB and ARB
follow labs
-
-
Date of Service: April 11, 2025
CC / HPI / ROS
-
Chief Complaint:
Acute kidney injury
History of Present Illness:
Creatinine slightly better at 1.7
Hemodynamically labile off pressors
Hyponatremia stable at 131
Review of Systems:
Nonoliguric via Mock
No fever
Weights no sog change
Labs
-
Labs:
WBC 6.3 10^3/uL (4.8-10.8) 04/11/25 04:15
RBC 4.08 10^6/uL (4.70-6.10) L 04/11/25 04:15
Hgb 13.2 g/dL (13.0-18.0) 04/11/25 04:15
Hct 39.3 % (39.0-52.0) 04/11/25 04:15
Plt Count 81 10^3/uL (130-400) L 04/11/25 04:15
Sodium 131 mmol/L (135-145) L 04/11/25 04:15
Potassium 4.0 mmol/L (3.5-5.1) 04/11/25 04:15
Chloride 103 mmol/L (98-107) 04/11/25 04:15
Carbon Dioxide 26 mmol/L (22-30) 04/11/25 04:15
BUN 37 mg/dl (9-20) H 04/11/25 04:15
Creatinine 1.7 mg/dL (0.7-1.3) H 04/11/25 04:15
eGFR 39.26 04/11/25 04:15
Glucose 86 mg/dl (70-99) 04/11/25 04:15
Calcium 8.9 mg/dl (8.4-10.2) 04/11/25 04:15
Phosphorus 4.2 mg/dl (2.5-4.5) 04/06/25 09:47
Klp-G-Yqkiygzzkud Pept 05207 pg/ml 04/06/25 09:47
Albumin 4.0 g/dl (3.5-5.0) 04/06/25 09:47
Physical Exam
-
Vital Signs:
Vital Signs
Temp Pulse Resp BP Pulse Ox
97.3 F 79 20 96/64 98
04/11/25 07:50 04/11/25 10:15 04/11/25 10:15 04/11/25 10:15 04/11/25 08:00
Cardiovascular:: Regular rate and rhythm (Irregular irregular)
Respiratory:: Bilateral: CTA
Lung Excursion:: Normal
Abdomen:: Nontender and Soft
Bowel Sounds:: Normal
Extremity Edema:: None: Bilateral:
Mock Catheter: Yes
--- NOTE | 2025-04-11 10:35 | PTCARENOTE ---
Assisted oob to the chair. Gait is steady with use of walker. Prior to getting oob complete CHG bath given. Pt did own oral care sitting oob. Lasix 40 mg po given as ordered. Currently resting oob. Call pean in reach.
[2025-04-11] MEDS: FARXIGA 10 MG PO (13:10)
[2025-04-11] MEDS: VIBRAMYCIN 50 MG PO (13:10)
[2025-04-11 13:21] LABS: Glucose - Point of Care 98 mg/dl (70-99)
--- NOTE | 2025-04-11 13:30 | PTCARENOTE ---
Pt remains resting oob in the chair. Overall states he is comfortable. Denies pain. Tubigrip applied to bilateral LE per md order. Pt Stood to void and voided 200- mls of yellow urine post earlier Lasix. Pt reweighed stood pt on a standing scale and
pt weighed at 62.9 KG- pt briefly assisted back to bed and reweighed in bed at 62.5 kg with no additional blankets on the bed. Dr. Slaughter updated. Pt ambulated in the room and briefly out in the reyes using a walker- pt admitted feeling a little
unsteady on his feet with walking. HR remained in the 70's V paced. VS as documented. Currently resting back in the chair awaiting lunch. No other changes.
--- NOTE | 2025-04-11 14:08 | W.PN.HOSP.TC ---
Today's Communication/Plan
-
diuretics per cardio/nephro
f/u weight/cr
Assessment / Plan
Assessment / Plan
Cardiogenic Shock
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
- CO 2.3/13.5
- stopped Milrinone and Levophed.
- [place] placed 04/07 and discontinued 04/09
- follow [facility] recs
Osmle-xq-tkfsgss HFrEF (NHYA class II to IV)
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
- life threatening diagnosis with concurrent TAHIRA, electrolyte abnormalities, known advanced CHF
- s/p IV Lasix course. resumed on oral lasix 40mg/d
- GMDT: BB/SGLT2/ARNI/MRA as tolerable
- Echo: EF 13%, stage 1 DD, RV reduced systolic dysfunction
- CBC cards following
Acute hypervolemic hyponatremia
TAHIRA on CKD3a, cardiorenal in setting of acute CHF
- Nephrology following
- cr stabilized and 1.7 today, monitor
Parox A. Fib with RVR
- device interrogation per Cards showed atrial tachycardia/poss aflutter. Now back in SR without intervention.
- s/p IV Amiodarone load. Continue oral Amiodarone 400mg BID
- INR 1.96 today, continue on warfarin 2mg for now,.
nonischemic myocardial injury in setting of CHF, renal failure
- trended
Acute Hyperkalemia
- s/p temporization in ER
CAD with hx CABG:
- no CP
- continue ASA, statin, BB
- recent op Lexiscan with large infarct but no ischemia
Abnormal CXR:
- CXR: Small left pleural effusion. Subtle rounded opacity in the left upper lobe, round pneumonia or mass.
- consider CT chest
- no infectious signs/symptoms
Thrombocytopenia
- monitor, no signs of bleeding
Hypothyroidism - continue replacement
DVT ppx: supratherapeutic INR
Code: Full
Total time spent ; 52 mins
Anticipated Discharge: > 48 hours
Subjective/Interval History
-
Date of Service: April 11, 2025
Resting comfortably in bed.
No chest pain or shortness of breath or palpitation
No other issues reported
Objective Data
-
Labs:
Laboratory Results
04/11/25
04:15
WBC 6.3
Hgb 13.2
Hct 39.3
Plt Count 81 L
PT 22.6 H
INR 1.97
Sodium 131 L
Potassium 4.0
Chloride 103
Carbon Dioxide 26
BUN 37 H
Creatinine 1.7 H
Glucose 86
Calcium 8.9
Vital Signs:
Vital Signs
Temp Pulse Resp BP Pulse Ox
97.3 F 79 20 96/64 98
04/11/25 07:50 04/11/25 10:15 04/11/25 10:15 04/11/25 10:15 04/11/25 08:00
I&O
04/10/25 04/11/25 04/12/25
06:59 06:59 06:59
Intake Total 1034.7 / 1034.7 720 / 720 350 / 350
Output Total 1100 / 1100 375 / 375 325 / 325
Balance -65.3 / -65.3 345 / 345
Review of Systems
-
Respiratory: Reports No Symptoms
Cardiac: Reports No Symptoms
Abdomen/GI: Reports No Symptoms
Physical Exam
-
General: No Apparent Distress
HEENT: Normocephalic and Atraumatic
Respiratory: Negative Wheezes
Cardiac: Regular Rhythm and S1/S2
GI: Soft, Nontender and Nondistended
Musculoskeletal: Edema, Right Lower Extrem and Edema, Left Lower Extrem
Neuro: Awake, Alert, Oriented and No Motor Deficits
Psych: Calm
--- NOTE | 2025-04-11 14:18 | HFEDUCATE ---
85 yo male admitted with worsening SOB over last few weeks, decreased appetite as well as weight gain and orthopnea. Past medical history includes acute on chronic HFrEF,severe cardiomyopathy, PAF/Flutter, TAHIRA on CKD, CAD with CABG in past.His
current ejection fraction by echocardiogram is 13 %. He lives at home with his , Rosette. He reports following a low sodium diet and a 48oz fluid restriction per day. He has a scale at home and weighs himself daily.
I provided HF education and discussed the usual lifestyle recommendations. I advised he continue to follow a low sodium diet of 4247-5973 mg. per day, and limit it to 500-750 mg. per meal. I advised a 48oz fluid restriction per day and discussed
ways to achieve the recommendations. I also advised he continue weighing himself daily and monitoring for any slight weight gain. I explained how to monitor for exacerbations. We discussed other alarming symptoms to watch for and when to notify his
provider. We discussed need for medications.
Recommendations:
Continue all HF recommended medications as ordered on discharge.
Limit sodium intake to <500-750 mg per meal.
Limit fluid intake to <48 oz per day.
Daily weights and contact provider for any weight gain >3lbs in one day or 5lbs in one week.
Follow up with provider as recommended
--- NOTE | 2025-04-11 15:40 | CM ---
Discharge POC: Per therapy, HH vs Cardiac Rehab. Await determination.
--- NOTE | 2025-04-11 15:50 | PTCARENOTE ---
Watching Failure Videos
--- NOTE | 2025-04-11 16:30 | PTCARENOTE ---
Watching Heart Failure Videos. Ambulated again in room and partially down one side of the hallway. Overall tolerated will. Stated he could feel toward the end that he had to breathe a little heavier - sats 98%. Denied distinct dizziness and stated
that he felt about the same as he does at home as far as 'wobliness'. Gait overall appeared steady using the walker. Resting in the chair. Assessment otherwise is unchanged.
--- NOTE | 2025-04-11 18:00 | PTCARENOTE ---
Walked the whole length of the ICU with a walker and tolerated. Currently sitting in the chair awaiting dinner. No other changes
[2025-04-11] MEDS: COUMADIN 2 MG PO (18:14)
[2025-04-11] MEDS: LIPITOR 80 MG PO (18:15)
[2025-04-11] MEDS: MELATONIN 5 MG PO (21:23)
[2025-04-12] VITALS (17 sets, daily range): BP systolic 100–129; BP diastolic 70–96; PULSE 77; BMI 22.9
--- NOTE | 2025-04-12 01:34 | PTCARENOTE ---
Pt received start of shift, HR V-paced on telemetry. Pt OOB in chair, ambulated x1 assist to bed. Pt voiding in urinal. Reviewed plan of care with pt, pt states understanding. Pt states he does feel occasionally dizzy, but that it is 'normal' for
him. Denies it being any worse than usual. VSS.
[2025-04-12 03:51] LABS: INR 2.05; PT 23.2 Sec (11.4-14.6)
[2025-04-12 03:59] LABS: Hematocrit 40.2 % (39.0-52.0); Hemoglobin 13.5 g/dL (13.0-18.0); Mean Corp Hgb Conc. 33.6 g/dL (33.0-37.0); Mean Corpuscular Volume 96.6 fL (80.0-94.0); Platelet Count 88 10^3/uL (130-400); Red Cell Dist. Width 15.9 % (11.5-14.5)
[2025-04-12 04:11] LABS: Blood Urea Nitrogen 40 mg/dl (9-20); Calcium 8.8 mg/dl (8.4-10.2); Carbon Dioxide 25 mmol/L (22-30); Chloride 103 mmol/L (98-107); Estimated Creatinine Clearance 28 ml/min; Glucose 78 mg/dl (70-99); Potassium 4.2 mmol/L (3.5-5.1); Sodium 133 mmol/L (135-145); eGFR 39.26
[2025-04-12] MEDS: SYNTHROID 75 MCG PO (07:22)
--- NOTE | 2025-04-12 08:08 | W.PN.NEPH.PH ---
Today's Communication / Plan
-
Maintain Lasix
Follow BMP
Assessment/Plan
-
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 Is found to have rapid A-fib placed on amiodarone drip. He has been having
shortness of breath difficulty talking for the last couple days he has been doing cardiac rehab and was noted to be tachycardic and sent to the emergency room..
Echocardiogram done today showed ejection fraction down to 13%.
Renal consult for acute kidney injury creatinine of 2.3 from 1.13 January 2025
Follows outpatient with Dr. Rodriges
Impression.
Acute on chronic kidney disease with a baseline creatinine of 1.6-1.7 outpatient January 2025
Acute on chronic CHF. (Cardiogenic shock)
CAD/history of CABG
Hyperkalemia
Hyponatremia 126
PAF with rapid ventricular response/pacer
Plan.
Right heart cath : Pulmonary capillary wedge pressure 30 04/06 , now 16-18 after RHC on 04/07 cardiac index 1.8
Creatinine down to 1.7 close to baseline , now on diuretics, Lasix 40 mg
stable hyponatremia maintain FR , slowly improving with fluid restriction and oral diuretic
BP soft on low dose BB and ARB
follow labs
-
-
Date of Service: April 12, 2025
CC / HPI / ROS
-
Chief Complaint:
Acute kidney injury
History of Present Illness:
Creatinine stable at 1.7
Hemodynamically labile off pressors
Hyponatremia stable at 133
Review of Systems:
Urine output around 625
No fever
Weights no significant change
Labs
-
Labs:
WBC 4.9 10^3/uL (4.8-10.8) 04/12/25 03:25
RBC 4.16 10^6/uL (4.70-6.10) L 04/12/25 03:25
Hgb 13.5 g/dL (13.0-18.0) 04/12/25 03:25
Hct 40.2 % (39.0-52.0) 04/12/25 03:25
Plt Count 88 10^3/uL (130-400) L 04/12/25 03:25
Sodium 133 mmol/L (135-145) L 04/12/25 03:25
Potassium 4.2 mmol/L (3.5-5.1) 04/12/25 03:25
Chloride 103 mmol/L (98-107) 04/12/25 03:25
Carbon Dioxide 25 mmol/L (22-30) 04/12/25 03:25
BUN 40 mg/dl (9-20) H 04/12/25 03:25
Creatinine 1.7 mg/dL (0.7-1.3) H 04/12/25 03:25
eGFR 39.26 04/12/25 03:25
Glucose 78 mg/dl (70-99) 04/12/25 03:25
Calcium 8.8 mg/dl (8.4-10.2) 04/12/25 03:25
Phosphorus 4.2 mg/dl (2.5-4.5) 04/06/25 09:47
Isb-M-Akfxsziwchg Pept 75509 pg/ml 04/06/25 09:47
Albumin 4.0 g/dl (3.5-5.0) 04/06/25 09:47
Physical Exam
-
Vital Signs:
Vital Signs
Temp Pulse Resp BP Pulse Ox
97.9 F 74 15 109/70 99
04/12/25 07:37 04/12/25 07:00 04/12/25 07:00 04/12/25 07:00 04/11/25 15:30
Cardiovascular:: Regular rate and rhythm (Irregular irregular)
Respiratory:: Bilateral: CTA
Lung Excursion:: Normal
Abdomen:: Nontender and Soft
Bowel Sounds:: Normal
Extremity Edema:: None: Bilateral:
Mock Catheter: No
--- NOTE | 2025-04-12 08:47 | W.PN.CD ---
Today's Communication / Plan
-
metoprolol Succinate 12.5mg qhs tonight
drop amiodarone to 200mg po daily
continue furosemide 40mg daily
ok to discharge home
corresponded with op cardiology
please call with questions
Impression / Plan
-
Cardiogenic Shock with Izdgo-gl-tvmtyiz HFrEF, LVEF 13%
- MVO2 of 65 is favorable. PCWP 18 at 141lbs.
- hold metoprolol until bp stable on some vasodilators (Valsartan and later move to Entresto) and can maintain volume status
- Wt stable on fursomide 40mg po BP stable
-will resume a 1/2 dose of metoprolol tonight
- On dapa, continue
- Cr back to baseline.
- Later add MRA back (typically on eplerenone)
-message sent to Dr Moses his typical dinkey engine firer/fireman at [facility] to update and assist with follow up.
-conitnue tubigrips
PAF/Flutter (typical we think)/ and a slower AT, paroxysmal
-device interrogation reviewed with EP and shows atrial tachycardia (453 ms = 132 bpm)
- sinus 04/08/2025 and 04/09/2025 now wtih sinus for atrial tachycardia and pacs
-likely contributing to HF exacerbation
-Completed IV amiodarone load and now Amiodarone 400mg bid drop to 200mg daily on discharge
-This requires intensive monitoring.
-On chronic warfarin, will need adjustment with higher Amiodarone dose
ICM EF 29 => 13 % on 04/06/2025 by echo here:
-follows with advanced HF and EP at [facility]
-ASSISTANT MANAGER-D in place (BS)- interrogation done in ER - see below
-typical home regimen: BB, SGLT2I, ARNI, and MRA
-reeval in 3 months when he has maintained sinus rhythm
Hyponatremia:
-needs monitoring with diuresis
-improving
TAHIRA on CKD: Cr approaching baseline perhaps
-last OP creatinine in [facility] : 1.7---now stable 1.7
-Dr. Rodriges is stadium attendant, nephro following
-likely cardiorenal etiology
CAD with hx CABG:
-no CP
-continue ASA, statin, BB
-recent op Lexiscan with large infarct but no ischemia
Abnormal CXR:
-CXR: Small left pleural effusion. Subtle rounded opacity in the left upper lobe, round pneumonia or mass. Follow-up recommended. Management per IM.
Abnormal troponin:
-suspect acute, non-ischemic myocardial injury in setting of CHF, renal dysfunction
-can trend to peak and check echo
-no CP
Subjective:
No CP or dyspnea at rest, oob to chair and ambulating yesterday without issue
RHC (04/07/2025) after this data below we chose to sit tight on Levophed and not add milrinone/dobutamine
Corrected data from 04/07/2025
HEMODYNAMIC DATA - on 4 norepi Wt
SBP 103/58 (mean 75) mmHg
RA 19 mmHg
RV 42/1 (EDP 12) mmHg
PA 47/16 (mean 24) mmHg
PCWP 18 mmHg
SaO2 97.0%
SvO2 61.2%
Hb 13.0 g/dL
CO/CI 3.41/2.00 L/min/m2
SVR 1314 dsc*-5
PVR 1.76 Wood units
04/07/25 TTE:
1. Left ventricular ejection fraction is severely reduced with an ejection fraction of 13 % by Paulson's biplane method of discs.
2. Stage I diastolic dysfunction suggestive of abnormal relaxation.
3. Right ventricular systolic function is moderately decreased.
4. Pleural effusion present.
5. No significant valve disease.
6. No prior study available for comparison.
CCT 31 minutes
Physical Exam
Vital Signs/Labs
Vital Signs
Temp Pulse Resp BP Pulse Ox
97.9 F 74 15 109/70 99
04/12/25 07:37 04/12/25 07:00 04/12/25 07:00 04/12/25 07:00 04/11/25 15:30
04/11/25 04/12/25 04/13/25
06:59 06:59 06:59
Actual Weight 143 lb 4.807 oz 137 lb 5.568 oz
04/12/25 03:25
04/12/25 03:25
PT 23.2 Sec (11.4-14.6) H 04/12/25 03:25
INR 2.05 04/12/25 03:25
APTT 41.4 Sec (23.4-35.0) H 04/06/25 09:47
Magnesium 1.8 mg/dl (1.6-2.3) 04/08/25 20:48
04/06/25
09:47
Gvh-U-Kodqkeiafri Pept [id number]
Physical Exam
Constitutional: No acute distress
Cardiovascular: Rhythm & rate is regular, Pedal edema is absent, JVD pressure is normal, Systolic murmur absent and Diastolic murmur absent
Respiratory: Respiratory effort normal, Lungs clear to auscul., Wheeze Absent, Crackles Absent and Rhonchi Absent
Neuro/Psych: AO x 3
Data Reviewed
-
Date of Service: April 12, 2025
[2025-04-12] MEDS: TYLENOL 500 MG PO (09:00)
[2025-04-12] MEDS: ASPIR LOW (ENTERIC COATED) 81 MG PO (09:00)
[2025-04-12] MEDS: PACERONE 400 MG PO (09:01)
[2025-04-12] MEDS: DIOVAN 40 MG PO (09:01)
[2025-04-12] MEDS: LASIX 40 MG PO (09:01)
--- NOTE | 2025-04-12 10:00 | PTCARENOTE ---
Assumed care of patient at 0645. Assessed patient and documented assessment in shift assessment on worklist.
Patient is pleasant, AAOX4. REED, follows commands appropriately. Currently no pain reported. Repositioned for comfort in bed. V-Paced on the monitor with murmur ausculated. +1 B/L LE edema, +2 Pedal Edema. R Wrist IV sluggish but patent. BP stable.
Afebrile. RA, lungs diminished throughout. KENNEDY. Ordered a cholesterol lowering diet with 2g Sodium restricted diet, 1200mL FR. Tolerating diet. Voiding in urinal. L Elbow Skin Tear otherwise skin CDI.
Potential discharge discussed with attending this AM.
[2025-04-12] MEDS: VIBRAMYCIN 50 MG PO (12:45)
[2025-04-12] MEDS: FARXIGA 10 MG PO (12:45)
--- NOTE | 2025-04-12 12:59 | W.PN.HOSP.TC ---
Today's Communication/Plan
-
d/c home with hh
Assessment / Plan
Assessment / Plan
Cardiogenic Shock
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
- CO 2.3/13.5
- stopped Milrinone and Levophed.
- Leon placed 04/07 and discontinued 04/09
- follow [facility] recs
Veqrx-sd-dsnkwud HFrEF (NHYA class II to IV)
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
- life threatening diagnosis with concurrent TAHIRA, electrolyte abnormalities, known advanced CHF
- s/p IV Lasix course. resumed on oral lasix 40mg/d
- Echo: EF 13%, stage 1 DD, RV reduced systolic dysfunction
- GDMT : Cardiology recommended patient to be restarted on half dose Toprol. Also Entresto switched to losartan for the time being. Eplerenone on hold. Continued on Jardiance.
Acute hypervolemic hyponatremia
TAHIRA on CKD3a, cardiorenal in setting of acute CHF
- Nephrology following
- cr stabilized and 1.7 today, follow-up BMP prescription provided.
Parox A. Fib with RVR
- device interrogation per Cards showed atrial tachycardia/poss aflutter. Now back in SR without intervention.
- s/p IV Amiodarone load. Patient oral amiodarone to be transition to 200 mg daily per cardiology recommendation.
- INR 2.06 today, discharged on warfarin 2 mg daily at home
nonischemic myocardial injury in setting of CHF, renal failure
- trended
Acute Hyperkalemia
- s/p temporization in ER
CAD with hx CABG:
- no CP
-Maintained on aspirin and statin.
- recent op Lexiscan with large infarct but no ischemia
Abnormal CXR:
- CXR: Small left pleural effusion. Subtle rounded opacity in the left upper lobe, round pneumonia or mass.
- no infectious signs/symptoms
Thrombocytopenia
- monitor, no signs of bleeding
Hypothyroidism - continue replacement
DVT ppx: Warfarin
Code: Full
More than 30 minutes spent in discharge including
Final examination of the patient
Summarizing hospital stay
Instructions for continuing care to all relevant caregivers
Preparation of discharge records, prescriptions, and referral forms
Total time spent (in minutes): 39 mins
Anticipated Discharge: Today
Subjective/Interval History
-
Date of Service: April 12, 2025
No new issues reported overnight
denies sob/chest pain
Objective Data
-
Labs:
Laboratory Results
04/12/25
03:25
WBC 4.9
Hgb 13.5
Hct 40.2
Plt Count 88 L
PT 23.2 H
INR 2.05
Sodium 133 L
Potassium 4.2
Chloride 103
Carbon Dioxide 25
BUN 40 H
Creatinine 1.7 H
Glucose 78
Calcium 8.8
Vital Signs:
Vital Signs
Temp Pulse Resp BP Pulse Ox
98.2 F 76 16 103/71 99
04/12/25 11:20 04/12/25 11:00 04/12/25 11:00 04/12/25 11:00 04/12/25 08:00
I&O
04/11/25 04/12/25 04/13/25
06:59 06:59 06:59
Intake Total 720 / 720 690 / 690 480 / 480
Output Total 375 / 375 750 / 750
Balance 345 / 345 -60 / -60 480 / 480
Review of Systems
-
Respiratory: Reports No Symptoms
Cardiac: Reports No Symptoms
Abdomen/GI: Reports No Symptoms
Physical Exam
-
General: No Apparent Distress
HEENT: Negative Oxygen
Respiratory: Negative Wheezes
Cardiac: Regular Rhythm and S1/S2
GI: Soft, Nontender and Nondistended
Musculoskeletal: Edema, Right Lower Extrem and Edema, Left Lower Extrem
Neuro: Awake, Alert, Oriented and No Motor Deficits
Psych: Calm
--- NOTE | 2025-04-12 13:12 | CM ---
Patient has been medically cleared for discharge to home with [facility] RN, PT/OT services. will transport home.
--- NOTE | 2025-04-12 13:58 | VNURNOTE ---
Home Health Liaison met with patient and spouse at bedside to discuss [facility] nurse/therapy, visits, schedule and homebound status. Patient is agreeable and understands that visits at home will be 2-3 x per week to assess and teach medical
management. He confirms that he has a scale at home. Patient is aware that [facility] will contact them for start of care in 1-2 days after discharge from . Provided contact number for [facility].
[facility] referral in [facility].
== END 2025-04-12 16:24 | disposition home health service (06) | DRG 286 ==
LOC: ICU 14:41
PROVIDERS: Internal Medicine; Nurse Practitioner Primary Care; Student in an Organized Health Care Education/Training Program; ADMITTING PHYSICIAN Internal Medicine; ATTENDING PHYSICIAN Hospitalist; CONSULT PHYSICIAN Internal Medicine Cardiovascular Disease; CONSULT PHYSICIAN Internal Medicine Nephrology; EMERGENCY PHYSICIAN Emergency Medicine; FAMILY PHYSICIAN Family Medicine; OTHER PHYSICIAN Internal Medicine
PROC: 4A023N6 Measurement of Cardiac Sampling and Pressure, Right Heart, Percutaneous Approach (ICD-10-PCS; 2025-04-06)
DX: I50.23 Acute on chronic systolic (congestive) heart failure (principal); R57.0 Cardiogenic shock; E87.1 Hypo-osmolality and hyponatremia; N17.9 Acute kidney failure, unspecified; I5A Non-ischemic myocardial injury (non-traumatic); N18.31 Chronic kidney disease, stage 3a; I25.5 Ischemic cardiomyopathy; I27.20 Pulmonary hypertension, unspecified; I48.0 Paroxysmal atrial fibrillation; E87.5 Hyperkalemia; D69.6 Thrombocytopenia, unspecified; E03.9 Hypothyroidism, unspecified; Z95.1 Presence of aortocoronary bypass graft; E78.00 Pure hypercholesterolemia, unspecified; Z79.82 Long term (current) use of aspirin; Z79.01 Long term (current) use of anticoagulants; Z79.84 Long term (current) use of oral hypoglycemic drugs; Z79.890 Hormone replacement therapy; Z79.899 Other long term (current) drug therapy; Z95.810 Presence of automatic (implantable) cardiac defibrillator; I25.10 Atherosclerotic heart disease of native coronary artery without angina pectoris
CPT/HCPCS: 71045; 80048; 80053; 82810; 82962; 83605; 83735; 83880; 84100; 84484; 85025; 85027; 85610; 85730; 93005; 93289; 93306; 93451; 93503; 96365; 96366; 96375; 97116; 97163; 97167; 97530; 97535; 99152; 99153; 99291; C1769; C1894

== ENCOUNTER 2025-04-21 06:59 | Day surgery (SDC) | payer MEDICARE, SELFPAY ==
[2025-04-21 09:15] LABS: INR 3.05; PT 31.4 Sec (11.4-14.6)
== END 2025-04-21 11:04 | disposition home or self-care (01) ==
LOC: CATH 06:59
PROVIDERS: ATTENDING PHYSICIAN Internal Medicine; FAMILY PHYSICIAN Family Medicine; OTHER PHYSICIAN Internal Medicine Cardiovascular Disease
DX: I48.19 Other persistent atrial fibrillation (principal); I08.3 Combined rheumatic disorders of mitral, aortic and tricuspid valves; I25.5 Ischemic cardiomyopathy; I11.0 Hypertensive heart disease with heart failure; I50.22 Chronic systolic (congestive) heart failure
CPT/HCPCS: 93312; 93320; 93325; 85610; 92960; 93005

== ENCOUNTER 2025-04-27 09:30 | Inpatient (IN) | payer MEDICARE, SELFPAY ==
[2025-04-26] VITALS (13 sets, daily range): BP systolic 82–117; BP diastolic 49–66; PULSE 61–63; BMI 23.8; BMI 23.5
--- NOTE | 2025-04-26 04:22 | ED.GENMED ---
History of Present Illness
<Ranjit Pisano MD, Resident - Last Filed: 04/26/25 05:51>
General
Chief Complaint: Weakness
Source: patient
Time Seen by Provider: 04/26/25 04:07
History of Present Illness
History of Present Illness:
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 Of note, he
was admitted 04/06-04/12 here for acute on chronic HFrEF and TAHIRA. His new medications on discharge included warfarin 2 mg, Lasix 40 mg (recently changed from daily to twice daily), valsartan 40 mg, and amiodarone 200 mg. He also had a cardioversion
on 04/[address] Collins. He reports that since discharge, he has generally felt well. He describes himself as 'wobbly'on baseline. He states that his Lasix was doubled last night and he was getting up to go to the bathroom throughout the night. At
1 point he felt weak and decided to sit down in his chair in the living room. He reports he was unable to push himself up on the walker as he usually is after he sat down and started to feel little lightheaded. He reports tipping over, not
falling, due to the coffee table in front of him and then ending up on the floor while hitting his left elbow on the coffee table. He states he was unable to get himself up and EMS had to be called. He also shares that he got a call today that his
INR was high and he was told to cut his Coumadin 2 mg to 1 mg for the next 3 days. He denies chest pain, fevers, nausea, vomiting, urinary symptoms, loss of consciousness, hitting his head, or any other new symptoms. He does endorse SOB and
bilateral lower extremity swelling.
Past History
<Ranjit Pisano MD, Resident - Last Filed: 04/26/25 05:51>
Past History
ED Past Medical History: Arrthythmia (Paroxysmal atrial fibrillation anticoagulated on warfarin), CAD and CHF
ED Past Surgical History: Cardiac (CABG x3 July 2016 at [facility])
Social History
Tobacco: Non-smoker
Alcohol: None
Drug: None
Personal:
Living: with family
Employment: Other
Family History
Family History: Other
Phy Exam
<Ranjit Pisano MD, Resident - Last Filed: 04/26/25 05:51>
General Physical Exam
General Presentation: mild distress
General Skin: warm, dry and other (Bandage over left elbow with skin tear from fall)
ENT Exam
ENT Exam: EOMI
Pulmonary Exam
Pulmonary Exam: lungs clear and no respiratory distress
Gastrointestinal Exam
Gastrointestinal Exam: non tender and soft
Course
<Ranjit Pisano MD, Resident - Last Filed: 04/26/25 05:51>
Orders/Labs/Results
Orders:
Orders
04/26/25 05:01
Electrocardiogram (*1) Urgent
Reason for Study: Fatigue / Weakness
EKG- Treatment ONCE
04/26/25 05:11
0.9% Sodium Chloride 250 ml [Nss] 250 ml IV BOLUS
04/26/25 05:31
Complete Blood Count/With Diff Urgent
Comprehensive Metabolic Panel Urgent
NT-proBNP Urgent
Prothrombin Time Urgent
Troponin I Urgent
04/26/25 05:34
CR Chest Portable - 1 View Urgent
Comment:
Reason For Exam: fall, sob
Reason Study Needs to be Portable: Other
Abnormal Lab Results
04/26/25
05:31
RBC 4.19 L 10^6/uL
(4.70-6.10)
MCV 96.4 H fL
(80.0-94.0)
MCH 32.0 H pg
(27.0-31.0)
RDW 16.6 H %
(11.5-14.5)
Plt Count 95 L 10^3/uL
(130-400)
MPV 10.8 H fL
(7.4-10.4)
Absolute Lymphs (auto) 0.5 L 10^3/uL
(1.2-3.4)
Absolute Monos (auto) 0.7 H 10^3/uL
(0.1-0.6)
Neutrophils % 80.5 H %
(42.2-75.2)
Lymphocytes % 7.6 L %
(20.5-51.1)
Monocytes % 10.2 H %
(1.7-9.3)
PT 36.3 H Sec
(11.4-14.6)
04/26/25 05:31
Vital Signs
Initial and Last Documented VS:
Initial Vital Signs
Temp Pulse BP
97.6 F 60 101/66
04/26/25 04:02 04/26/25 04:02 04/26/25 04:02
Last Documented Vital Signs
Temp Pulse Resp BP Pulse Ox
97.9 F 60 13 93/51 98
04/26/25 04:02 04/26/25 05:45 04/26/25 05:45 04/26/25 05:30 04/26/25 05:45
<Bijan Lafleur, DO - Last Filed: 04/26/25 06:15>
Orders/Labs/Results
Orders:
Orders
04/26/25 05:01
Electrocardiogram (*1) Urgent
Reason for Study: Fatigue / Weakness
EKG- Treatment ONCE
04/26/25 05:11
0.9% Sodium Chloride 250 ml [Nss] 250 ml IV BOLUS
04/26/25 05:31
Complete Blood Count/With Diff Urgent
Comprehensive Metabolic Panel Urgent
NT-proBNP Urgent
Prothrombin Time Urgent
Troponin I Urgent
04/26/25 05:34
CR Chest Portable - 1 View Urgent
Comment:
Reason For Exam: fall, sob
Reason Study Needs to be Portable: Other
Abnormal Lab Results
04/26/25
05:31
RBC 4.19 L 10^6/uL
(4.70-6.10)
MCV 96.4 H fL
(80.0-94.0)
MCH 32.0 H pg
(27.0-31.0)
RDW 16.6 H %
(11.5-14.5)
Plt Count 95 L 10^3/uL
(130-400)
MPV 10.8 H fL
(7.4-10.4)
Absolute Lymphs (auto) 0.5 L 10^3/uL
(1.2-3.4)
Absolute Monos (auto) 0.7 H 10^3/uL
(0.1-0.6)
Neutrophils % 80.5 H %
(42.2-75.2)
Lymphocytes % 7.6 L %
(20.5-51.1)
Monocytes % 10.2 H %
(1.7-9.3)
PT 36.3 H Sec
(11.4-14.6)
04/26/25 05:31
Vital Signs
Initial and Last Documented VS:
Initial Vital Signs
Temp Pulse BP
97.6 F 60 101/66
04/26/25 04:02 04/26/25 04:02 04/26/25 04:02
Last Documented Vital Signs
Temp Pulse Resp BP Pulse Ox
97.9 F 60 13 93/51 98
04/26/25 04:02 04/26/25 05:45 04/26/25 05:45 04/26/25 05:30 04/26/25 05:45
<Ranjit Pisano MD, Resident - Last Filed: 04/26/25 05:51>
MDM/Problems Addressed
MDM/Problems Addressed:
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
#Generalized weakness
#Fall
#Hypotension
He does not report loss of consciousness or a proper mechanical fall. BP 80s/40s. He endorses weakness, SOB, and BLE swelling. Lasix was added as a new medication on 04/12 and dose was doubled last night, his symptoms are likely a sequela of this.
- Admit for further workup and management.
- Follow-up CBC, CMP, troponin BNP
- Follow-up chest x-ray and EKG
- 250 mL IV NSS time x 1
<Ranjit Pisano MD, Resident - Last Filed: 04/26/25 05:51>
*Pulse Oximetry
Patient hypoxic: no
*Critical Care Note
Total Time (30-74mins, 75-104mins- exclusive of procedures): Not Applicable
ED Attending Note
<Ranjit Pisano MD, Resident - Last Filed: 04/26/25 05:51>
-
Portions of this chart may have been created with voice recognition software.� Occasional wrong word or��sound alike� substitutions may have occurred due to the inherent limitations of voice recognition software.
<Bijan Lafleur DO - Last Filed: 04/26/25 06:15>
ED Attending Note
Patient seen and examined by attending physician: Yes
I performed a history and physical exam of patient and discussed management with resident, I reviewed resident's note and agree with documented findings and plan of care.: Yes
ED Attending Note:
Note:
CHIEF COMPLAINT(S)
Low blood pressure.
HISTORY OF PRESENT ILLNESS
The patient is an 85-year-old male with a history of heart-related issues presenting with low blood pressure and associated symptoms. The patient reports monitoring his blood pressure as part of his daily regimen, noting that if his systolic
pressure is 100 or more, he takes half a tablet of Metoprolol 12.5mg at night. Recently, the patients blood pressure was 82 mmHg systolic, prompting medical evaluation. The patient denies any episodes of passing out, stating, 'I didnt pass out,' but
did mention an inability to rise from a chair without assistance, indicating a potential weakness episode.
The patient has no history of chest pain but reports dyspnea that can occur both at rest and with exertion. At rest, he experiences panting if his heart rate is too low, causing discomfort, and slight exertion, such as walking a short distance,
exacerbates the issue. He is currently under care with physical and occupational therapy and is managing his cardiac health under the supervision of his tag press operator, Dr. Slaughter. A recent adjustment was made to his Lasix (furosemide) due to a
minor fluid buildup noted by his visiting nurse. The patient also mentioned an increase in Lasix dosage related to the management of fluid retention.
ADDITIONAL HISTORY OBTAINED FROM SOURCES OTHER THAN THE PATIENT
The patients spouse reported assisting him when he was unable to get out of a chair, suggesting potential weakness or fatigue. The spouse�s involvement indicates ongoing support in managing the patients health condition at home.
CHRONIC MEDICAL CONDITIONS SIGNIFICANTLY AFFECTING CARE
The patient has a history of heart-related issues, including being under regular cardiological care and possessing a pacemaker from [employer]. The patient also has known right bundle branch block.
PHYSICAL EXAM
General: Alert and cooperative.
Skin: Warm, dry.
Head: Normocephalic, atraumatic.
Neck: Supple, trachea midline.
Eye, Ears, Nose, Mouth, and Throat: Oral mucosa moist.
Cardiovascular: Normal peripheral perfusion, No edema reported.
Respiratory: Reports of shortness of breath, but respirations are non-labored.
Gastrointestinal: Abdomen nondistended.
Back: Normal range of motion, Normal alignment.
Musculoskeletal: Limited by weakness when attempting to rise from sitting.
Neurological: Alert and oriented to person, place, time, and situation, No focal neurological deficit observed.
Psychiatric: Cooperative, appropriate mood & affect.
PROBLEM LIST
Acute:
- Low blood pressure
- Dyspnea at rest and on exertion
Chronic:
- History of cardiac conditions with pacemaker
- Right bundle branch block
PLAN
- Admit to the hospital for monitoring and management of blood pressure
- Administration of dobutamine to raise blood pressure
- Continuation of Lasix with caution regarding potential adjustments
- Ongoing monitoring of cardiac health parameters
DIFFERENTIAL DIAGNOSIS
The Differential Diagnosis includes, in no particular order and is not limited to:
1. Hypotension due to medication overdose
2. Cardiac arrhythmias
3. Pacemaker dysfunction
4. Heart failure exacerbation
5. Syncope due to orthostatic hypotension
6. Dehydration
7. Electrolyte imbalances
8. Atrial fibrillation
9. Side effects of antihypertensive medication
10. Anemia
Disposition:
SUMMARY OF ENCOUNTER
An 85-year-old male with a history of atrial fibrillation, ischemic cardiomyopathy, hypertension, and hyperlipidemia, presented following a syncope episode. The patient was recently admitted and discharged on April 12 for chronic heart failure
and acute kidney injury. His furosemide dosage was increased from 40 mg to 80 mg daily. Last evening, he experienced lightheadedness and fell, hitting his left elbow on a coffee table. He was unable to get up and called 911 for assistance. Upon
evaluation, he was found to be alert and oriented, with no murmurs heard. The patient is currently on warfarin for anticoagulation.
DISPOSITION
Patient to be admitted to the hospital service.
MANAGEMENT OF THE PATIENTS CARE WAS DISCUSSED WITH
The patient was seen in conjunction with the resident. I reviewed and agreed with her history and treatment plan.
FOLLOW-UP INSTRUCTIONS
The patient is to be admitted to the hospital service for further evaluation and management.
MEDICATION RECONCILIATION
Warfarin (coumadin) is part of the patients current medication regimen. Furosemide increased to 80 mg daily from 40 mg.
MEDICAL DECISION MAKING
-Number and Complexity of Problems Addressed: Chronic conditions affecting care: atrial fibrillation, ischemic cardiomyopathy, hypertension, hyperlipidemia, syncope, chronic heart failure, acute kidney injury.
-Data:
Category 1
Past admission record review noted for chronic heart failure and acute kidney injury managed previously.
Category 2
Input was obtained from the patients history and the incident where he required emergency services.
-Risk:
Admission was decided given the complexity of the patients case, recent fall, chronic conditions, and potential complications from his regimen of increased furosemide and anticoagulation therapy.
DIAGNOSIS
- Syncope (R55).
- Atrial fibrillation (I48.91).
- Ischemic cardiomyopathy (I25.5).
- Chronic heart failure (I50.22).
- Acute kidney injury (N17.9).
- Hypertension (I10).
- Hyperlipidemia (E78.5).
Discharge Plan
Departure
Patient Disposition: Admit
Date of Disposition: 04/26/25
Time of Disposition: 05:43
Admit to: Med/Surg
Presentation/result/management discussed w/ accepting MD/DO: Hospitalist
Condition: Good
Discharge Problem:
Acute hypotension
Prescriptions:
No Action
atorvastatin 80 MG tablet
80 mg PO QPM
cholecalciferol (vitamin D3) [Vitamin D3] 1,000 UNIT capsule
1,000 unit PO DAILY@1200
doxycycline hyclate 50 mg Capsule
50 mg PO DAILY@1200
acetaminophen [Tylenol Extra Strength] 500 mg Tablet
500 mg PO TID
levothyroxine [Synthroid] 75 mcg Tablet
75 mcg PO DAILY
melatonin 5 mg Tablet
5 mg PO HS
Jardiance 10 mg Tablet
10 mg PO DAILY@1200
aspirin 81 mg Tablet,Delayed Release (Dr/Ec)
81 mg PO DAILY
warfarin [Jantoven] 2 mg Tablet
2 mg PO QPM Qty: 30 1RF
furosemide 40 mg Tablet
40 mg PO DAILY Qty: 30 2RF
valsartan 40 mg Tablet
40 mg PO BID Qty: 60 2RF
(DME) BMP
See Rx Instructions .Route .MEDSUPPLY Qty: 1 0RF
Rx Instructions:
BMP - check within 1 week
Dx : Systolic heart failure
Forward result to Dr Noé Rodriges.
metoprolol succinate 25 MG tablet extended release 24 hr
12.5 mg PO HS Qty: 30 0RF
Rx Instructions:
HOLD DOSE IF SYSTOLIC BP < 100 or HR < 60
amiodarone [Pacerone] 200 mg Tablet
200 mg PO DAILY Qty: 30 2RF
Interventions
Interventions:
*Risk Screen - Suicide Last Done: 04/26/25 04:08
*General Assessment Last Done: 04/26/25 04:15
*Neglect/Abuse Screening Last Done: 04/26/25 04:08
*ED- Fall Risk Assessment Last Done: 04/26/25 04:08
*ED COVID-19 Vaccine History Last Done: 04/26/25 04:08
ED- Cardiac Assessment Last Done: 04/26/25 04:32
ED- Neurological Assessment Last Done: 04/26/25 04:32
ED- Pulmonary Assessment Last Done: 04/26/25 04:32
Discharge Date and Time
Print Language: MONEGASQUE
[2025-04-26] MEDS: NSS 250 IV (05:35)
[2025-04-26 05:44] LABS: Hematocrit 40.4 % (39.0-52.0); Hemoglobin 13.4 g/dL (13.0-18.0); Mean Corp Hgb Conc. 33.2 g/dL (33.0-37.0); Mean Corpuscular Volume 96.4 fL (80.0-94.0); Nucleated Red Blood Cells % 0 % (-); Platelet Count 95 10^3/uL (130-400); Red Cell Dist. Width 16.6 % (11.5-14.5)
[2025-04-26 05:51] LABS: INR 3.70; PT 36.3 Sec (11.4-14.6)
--- NOTE | 2025-04-26 06:14 | HPS.HSE ---
Family Physician
-
Family Physician: Pool Holloway
Chief Complaint
-
Weakness
History of Present Illness
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
hypothyroid, CKD stage IV who was recently admitted for cardiogenic shock status post right heart catheterization showing elevated ventricular filling pressures and increased capillary wedge pressure with decreased cardiac index, treated with
milrinone drip 40 cardiogenic shock with volume optimization, had persistent atrial tachycardia/for flutter for which she was placed on amiodarone with ultimate stabilization of his cardiovascular status and renal function with a creatinine of 1.7
and adjustment of his medications with essentially decreases in his BP med and discontinuation of his sacubitril will also had a follow-up cardiology evaluation and is status post DCCV on April 21 coming in with episode of weakness and fall at
around 9.
Patient reported that he has essentially been in usual state of health since his cardioversion. He denies any new dizziness or lightheadedness. He always reports his legs were wobbly but this has been the case for several months to years. He
denies any new palpitations. He reports chronic dyspnea but his exercise tolerance has not changed. He reports chronic lower extremity edema which is unchanged. He stated that he did have episode of left upper extremity edema 2 days ago and was
told to take an extra dose of his Lasix 40 mg in the evening otherwise, 40 mg daily. He also reported that he takes metoprolol succinate 25 mg p.o. at bedtime as needed blood pressure greater than 100 and he has taken it about half the time.
Reports elevated INR but no evidence of GI or mucosal bleeding. Denies any cough fevers or chills. Denies any acute urinary symptoms.
Stated that he was having trouble sleeping tonight and he left his bed to go lay down in his reclining chair. However after few minutes he got up from the reclining chair and it was unclear whether he tripped or was weak and then fell. He denies
any loss of consciousness. When he fell he called upon his spouse who eventually came to get him but she could not get him up and EMS was called. He denied having any chest pain.
On initial arrival in the emergency department he did have a low blood pressure as low as 88 systolic. He received 250 mL bolus and his blood pressure has been over 90 systolic with maps in the 60-65 range.
His pulse rate was 68 satting 98% on room air and was afebrile. ECG showed a sensed V paced rhythm at 60. Device shows no acute findings.
CBC was unremarkable with his chronic leukocytopenia. INR was 3.7. Electrolytes were all stable with stable BUN/creatinine compared to prior at creatinine of 1.7. Chest x-ray shows cardiomegaly but is otherwise clear.
Medical History
Past Medical History
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
Past Surgical History: Reports Cardiac
Social History
Tobacco: Non-smoker
Alcohol: None
Personal:
Living: With Family
Employment: Retired
Family History
Family History: Not pertinent
Allergies / Home Medications
Allergies reflects when Allergies were last updated in [facility].
Home Medications with original date entered in [facility]
Allergy/Medication List:
Allergies
Allergy/AdvReac Type Severity Reaction Status Date / Time
No Known Allergies Allergy Verified 10/19/18 11:20
Home Medications
atorvastatin 80 mg tablet 80 mg PO QPM High Cholesterol 12/01/17
cholecalciferol (vitamin D3) 25 mcg (1,000 unit) capsule (Vitamin D3) 1,000 unit PO DAILY@1200 Supplement 12/01/17
acetaminophen 500 mg tablet (Tylenol Extra Strength) 500 mg PO TID Pain 04/06/25
aspirin 81 mg tablet,delayed release 81 mg PO DAILY Blood Clot Prevention/Tx 04/06/25
doxycycline hyclate 50 mg capsule 50 mg PO DAILY@1200 Infection 04/06/25
empagliflozin 10 mg tablet (Jardiance) 10 mg PO DAILY@1200 Heart Failure 04/06/25
levothyroxine 75 mcg tablet (Synthroid) 75 mcg PO DAILY Thyroid 04/06/25
melatonin 5 mg tablet 5 mg PO HS Sleep 04/06/25
BMP #1 ea 04/12/25
amiodarone 200 mg tablet (Pacerone) 200 mg PO DAILY Arrhythmia #30 tabs 04/12/25
furosemide 40 mg tablet 40 mg PO DAILY Hear failure #30 tabs 04/12/25
metoprolol succinate 25 mg tablet,extended release 24 hr 12.5 mg (1/2 x 25 mg) PO HS Heart Failure #30 tabs 04/12/25
valsartan 40 mg tablet 40 mg PO BID Heart Failure #60 tabs 04/12/25
warfarin 2 mg tablet (Jantoven) 2 mg PO QPM Blood clot prevention/tx #30 tabs 04/12/25
Review of Systems
-
Constitutional: Reports No Symptoms
EENT: Reports No Symptoms
Respiratory: Denies Cough, Hemoptysis or Trouble Breathing
Cardiac: Reports No Symptoms
Abdomen/GI: Reports No Symptoms
: Reports No Symptoms
Musculoskeletal: Reports No Symptoms
Skin: Reports No Symptoms
Neurological: Reports No Symptoms
Endocrine: Reports No Symptoms
Hematologic/Lymphatic: Reports No Symptoms
Psych: Reports No Symptoms
Physical Exam
Vital Signs
Vital Signs
Temp Pulse Resp BP Pulse Ox
97.9 F 60 13 93/51 98
04/26/25 04:02 04/26/25 05:45 04/26/25 05:45 04/26/25 05:30 04/26/25 05:45
Physical Exam
General: Comfortable and Appears Chronically Ill; No Respiratory Distress
HEENT: NormoCephalic, Anicteric, Moist mucous membranes, Atraumatic, PERRLA and Neck Nontender; No Oxygen
Respiratory: Clear
Cardiac: S1/S2 and Regular Rhythm; No JVD
Breast: Deferred by me
GI: Soft, Non Tender, Non Distended and Normal Bowel Sounds
Rectal: Deferred by Provider
Genito-urinary: Deferred by me
Musculoskeletal: No Clubbing, No Cyanosis, Edema, Left Lower Extremity (Trace to 1+) and Edema, Right Lower Extremity (Trace)
Skin: Warm
Neuro: AO x 3 and Nonfocal/grossly intact
Hematologic/Lymphatic: No Lymphadenopathy
Psych: Calm
Laboratory Results
-
04/26/25 05:31
Laboratory Results
PT 36.3 Sec (11.4-14.6) H 04/26/25 05:31
INR 3.70 04/26/25 05:31
Total Bilirubin Cancelled 04/26/25 05:31
AST Cancelled 04/26/25 05:31
ALT Cancelled 04/26/25 05:31
Alkaline Phosphatase Cancelled 04/26/25 05:31
Data Reviewed
-
Diagnostic Radiology: Image Personally Visualized and interpreted
Medical Tests (Nuc Med, Echo, EKG etc): Image Personally Visualized and interpreted
Lab Data: Labs Reviewed by me
Old Records: Reviewed
Impression/Plan
-
IMPRESSION:
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
the emergency department with episode of a fall and difficulty getting up without any loss of consciousness. He has no focal logical deficits. His exam reveals some mild volume overload with bilateral peripheral edema with trace to 1+ but no JVD
and no pulmonary edema and oxygen requirement is at baseline. His troponin is slightly elevated at 0.06 which is lower than his prior last month, BNP pending, renal function and electrolytes are essentially at baseline. There is no signs of an
acute infection urinary or otherwise. I suspect patient has some generalized weakness although gaining with physical therapy still has challenges. I do not see evidence of an acute exacerbation of his cardiovascular status nor any significant
difference in his baseline blood pressure. There is possibility of a mild dehydration with recent up titration of his Lasix but he only received 40 mg additional dose once. BP has been relatively stable in the 90s systolic in the emergency
department.
PLAN:
Weakness/low blood pressure -no infection, possibly mild dehydration, no evidence of cardiogenic shock at this time. last BP was 100 systolic
-admit to telemetry obs
- hold additional fluid
- check orthostatics
- hold lasix this am and re-evaluate when SBP consistently > 100, can redose lasix later today
- PT consultation
CHF - HD stable and slightly hypervolemic with 1+ tasia LE edema. I doubt edema can be completely resolved without severe hypotension given EF
- lasix as above
- continue valsartan bid with hold parameters
- continue jardiance
- metoprolol prn SBP > 100
- no current indication for cardiology consult
AFIB - Paced at 60
- continue metop as above, hold for SBP < 100
- continue coumadin currently 1mg evenings today and tomorrow, follow inr
- continue amio 200 daily
Hypothyroid -
continue levothyroxine
DVT PPX - on warfarin
Code status - Full code
[2025-04-26 06:15] LABS: Blood Urea Nitrogen 38 mg/dl (9-20); Calcium 8.4 mg/dl (8.4-10.2); Carbon Dioxide 24 mmol/L (22-30); Chloride 101 mmol/L (98-107); Estimated Creatinine Clearance 28 ml/min; Glucose 83 mg/dl (70-99); Sodium 131 mmol/L (135-145); eGFR 39.26
[2025-04-26 06:28] LABS: Troponin I 0.065 ng/ml
--- NOTE | 2025-04-26 10:13 | W.PN.HOSP.TC ---
Today's Communication/Plan
-
See plan
Assessment / Plan
Assessment / Plan
Impression
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
the emergency department with episode of a fall and difficulty getting up without any loss of consciousness. He has no focal logical deficits. His exam reveals some mild volume overload with bilateral peripheral edema with trace to 1+ but no JVD
and no pulmonary edema and oxygen requirement is at baseline. His troponin is slightly elevated at 0.06 which is lower than his prior last month, BNP pending, renal function and electrolytes are essentially at baseline. There is no signs of an
acute infection urinary or otherwise. I suspect patient has some generalized weakness although gaining with physical therapy still has challenges. I do not see evidence of an acute exacerbation of his cardiovascular status nor any significant
difference in his baseline blood pressure. There is possibility of a mild dehydration with recent up titration of his Lasix but he only received 40 mg additional dose once. BP has been relatively stable in the 90s systolic in the emergency
department.
Presentation with generalized fatigue and weakness.
Chronic hypotension.
Conditions prior to admission:
Severe ischemic cardiomyopathy with LVEF of 13%
Status post FOOD SERVICE TRAY ATTENDANT�D.
Recent hospitalization with cardiogenic shock.
Paroxysmal A-fib/flutter status post cardioversion 04/21.
Anticoagulation with Coumadin.
Chronic hypervolemic hyponatremia.
CAD with history of CABG.
Chronically elevated troponins.
CKD stage IIIb baseline creatinine 1.7
Hypothyroidism on replacement
Plan
Patient presents with generalized fatigue and weakness.
This is likely multifactorial
Ischemic cardiomyopathy
Concern for decompensated CHF severely reduced EF
Denies chest pain, chronically shortness of breath.
States being compliant with outpatient medication regimen including Lasix. Was given additional Lasix 40 mg 2 days prior to presentation with concern for peripheral edema.
Stable respiratory status.
Noted with marginal BP which is likely chronic.
Possibly around 1-2 pounds above dry weight (62KG�64KG)
Preadmission GDMT regimen including Toprol-X 12.5 mg at bedtime, valsartan 40 mg twice daily, Lasix 40 mg daily, Farxiga 10 mg daily
Consider gentle diuresis to dry weight.
Check orthostatics
Paroxysmal A-fib/flutter.
Recent cardioversion on 04/21
Continue amiodarone
Continue Toprol
Continue anticoagulation with Coumadin with goal INR 2�3
Chronic hypovolemic hyponatremia
Monitor sodium level with diuresis
CKD stage IIIb.
Creatinine at the baseline
Monitor
Hypothyroidism
On replacement
PT eval
Full code
DVT prophylaxis Coumadin
Anticipated Discharge: 24 - 48 hours
Subjective/Interval History
-
Date of Service: April 26, 2025
Objective Data
-
Labs:
Laboratory Results
04/26/25
05:31
WBC 6.6
Hgb 13.4
Hct 40.4
Plt Count 95 L
PT 36.3 H
INR 3.70
Sodium 131 L
Potassium
Chloride 101
Carbon Dioxide 24
BUN 38 H
Creatinine 1.7 H
Glucose 83
Calcium 8.4
Total Bilirubin Cancelled
AST Cancelled
ALT Cancelled
Alkaline Phosphatase Cancelled
Vital Signs:
Vital Signs
Temp Pulse Resp BP Pulse Ox
97.9 F 60 14 99/52 98
04/26/25 04:02 04/26/25 09:15 04/26/25 09:15 04/26/25 09:10 04/26/25 09:15
I&O
04/25/25 04/26/25 04/27/25
06:59 06:59 06:59
Intake Total 250 / 250
Output Total 150 / 150 175 / 175
Balance 100 / 100 -175 / -175
Physical Exam
-
General: Well Developed and No Apparent Distress
HEENT: Normocephalic, Atraumatic and Moist Mucous Membranes
Respiratory: Clear to Auscultation
Cardiac: Regular Rhythm and S1/S2; Negative Murmur, Rub or Gallop
GI: Soft, Nontender, Nondistended and Normal Bowel Sounds; Negative Organomegaly
Rectal: Deferred by Provider
Musculoskeletal: No Clubbing, No Cyanosis and No Edema
Skin: Negative Rash
Neuro: Nonfocal/Grossly Intact
--- NOTE | 2025-04-26 10:51 | CON.CAR ---
Addendum entered and electronically signed by Allan Collins MD 04/26/25 15:55:
I saw and examined the patient. Majority of MDM made by me.
The DOCK ATTENDANT's note was reviewed and I agree with the note, with changes/additions below.
Comment: 85 yo male with severe ICM, EF 15-20%, chronic HFrEF, is admitted with fatigue, weakness. He was having trouble sleeping, tried getting on to a chair, but was then trapped on the floor. He did take an extra 40mg lasix at home due to edema.
has home BP and weight log--looks stable. He received 250cc IVF in ED. Feels somewhat better. Exam with RRR, no murmurs, no edema. Tele: intermitting AV pacing. Cr 1.7.
Fatigue, weakness. May be due to chronic HFrEF. Will not make any med changes yet. If we see lower BP, we will reduce valsartan dose. Continue PO lasix for now.
HAND REAMER-D. Device rep plans to interrogate device.
Original Note:
Consultation
Consultation Request
Date/Time Consultation Requested: 04/26/25 1012
Date/Time Consultation Performed: 04/26/25 1030
Requesting Provider: Dr. Del Rosario
Performing Provider: Ora SALAZAR for Dr. Collins
Reason for Consultation: weakness, CHF
Medical History
-
Chief Complaint: weakness
History of Present Illness:
85 y/o male (follows with Dr. Sosa for advanced heart failure, previous EP Dr. Giang, recently started following in our office for local cardio management- Dr. Slaughter) with HFrEF, ICM EF 13-20%, HAND REAMER-D in place, CAD with hx CABG 2015,
PAF on warfarin, and CKD3A (Dr. Rodriges). He was recently hospitalized after he came in with [facility] and was diagnosed with cardiogenic shock with [id number] HFrEF. He was briefly on dobutamine, and IV Lasix. He had RHC as below. He later required
Levophed as well. Heart failure GDMT had to be reduced due to hypotension. He was also having atrial flutter/atrial tachycardia and amiodarone was increased. He is s/p SANDOVAL/CV 04/21/25. He was feeling improved after d/c. However, overnight he couldn't
sleep, so he went to sit in the living room. He sat for about 2-3 hours, then around 3 AM he decided to try for sleep again in bed. However, he felt too weak to get up so he lowered himself to the floor, but could not get up from the floor due to
severe weakness. Of note, on Thursday, he was given an extra dose of PO lasix. He tells me this was due to swelling in his left arm? He is in no distress at the time of my assessment. Weight has been stable on home checks. BP was on low end on
arrival, but has now normalized- he was given 250 cc bolus in ER.
Past Medical History
Past Medical History: Arrhythmias, CAD, CHF and Other (as above)
Social History
Personal:
Living: With Family
Family History
Family History: Reviewed & Not Pertinent
Allergies / Home Medications
Allergy/AdvReac Type Severity Reaction Status Date / Time
No Known Allergies Allergy Verified 10/19/18 11:20
�Medication �Instructions �Recorded �Confirmed �Type
atorvastatin 80 mg tablet 80 mg PO QPM High Cholesterol 12/01/17 04/26/25 History
cholecalciferol (vitamin D3) 25 1,000 unit PO DAILY@1200 Supplement 12/01/17 04/26/25 History
mcg (1,000 unit) capsule (Vitamin
D3)
acetaminophen 500 mg tablet 500 mg PO DAILY mild Pain 04/06/25 04/26/25 History
(Tylenol Extra Strength)
aspirin 81 mg tablet,delayed 81 mg PO DAILY Blood Clot 04/06/25 04/26/25 History
release Prevention/Tx
doxycycline hyclate 50 mg capsule 50 mg PO DAILY@1200 Infection 04/06/25 04/26/25 History
empagliflozin 10 mg tablet 10 mg PO DAILY@1200 Heart Failure 04/06/25 04/26/25 History
(Jardiance)
levothyroxine 75 mcg tablet 75 mcg PO DAILY Thyroid 04/06/25 04/26/25 History
(Synthroid)
melatonin 5 mg tablet 10 mg PO HS Sleep 04/06/25 04/26/25 History
amiodarone 200 mg tablet (Pacerone) 200 mg PO DAILY Arrhythmia #30 tabs 04/12/25 04/26/25 Rx
valsartan 40 mg tablet 40 mg PO BID Heart Failure #60 tabs 04/12/25 04/26/25 Rx
furosemide 40 mg tablet 40 mg PO DAILY Heart Failure 04/26/25 04/26/25 History
metoprolol succinate 25 mg 12.5 mg PO HSPRN PRN high blood 04/26/25 04/26/25 History
tablet,extended release 24 hr pressure
warfarin 1 mg tablet 1 mg PO MoTuWeTh@1900 Blood Clot 04/26/25 04/26/25 History
Prevention/Tx
warfarin 2 mg tablet (Jantoven) 2 mg PO SuFrSa@1900 Blood clot 04/26/25 04/26/25 History
prevention/tx
Review of Systems
-
History Source: Patient
All other systems: Negative unless noted
Neurological: Weakness
Physical Exam
Vital Signs
Temp Pulse Resp BP Pulse Ox
97.6 F 61 16 117/63 100
04/26/25 10:27 04/26/25 10:27 04/26/25 10:27 04/26/25 10:27 04/26/25 10:27
Lab Results
04/26/25 05:31
04/26/25 05:31
Troponin I 0.065 ng/ml H* 04/26/25 05:31
Dzo-R-Xdkpkwfcrqq Pept 8200 pg/ml 04/26/25 05:31
Physical Exam
General: Well Developed and No Apparent Distress
HEENT: Normocephalic and Anicteric
Respiratory: Clear and Non Labored Respirations
Cardiac: Regular Rhythm
Musculoskeletal: Edema (trace BLE edema)
Skin: Warm and Dry
Neuro: AO x 3
Psych: Calm
Impression / Plan
-
Weakness, severe:
-does not appear to be related to an acute cardiac issue, but he does have severe, chronic CHF (see below) and had hypotension on arrival (80's/40's)- now improved. May have to reduce ARB if BP's too low. Currently fine.
-PT consulted
HFrEF: chronic
-weight stable overall, lungs clear; does not appear volume overloaded to my assessment
-would continue Lasix 40 mg PO daily
ICM: EF 13% on 04/06/2025 by TTE, SANDOVAL EF 20% 04/21/25
-follows with advanced HF at [place]- no shocks
-HAND REAMER-D in place (BS)- interrogation done in ER and uploaded to chart- no VT/shocks on my review
-currently on Jardiance, metoprolol, valsartan, but meds limited by BP
PAF/Flutter (suspected to be typical)/ and a slower AT, paroxysmal:
-became persistent and likely contributed to recent CHF exacerbation. Therefore, amiodarone increased and patient s/p SANDOVAL/CV. Now maintaining SR.
-on warfarin- follow INR's daily
CAD with hx CABG:
-no CP
-continue ASA, statin, BB
-recent op Lexiscan with large infarct but no ischemia
Abnormal troponin:
-lower than last admit
-suspect chronic, non-ischemic myocardial injury in setting of renal and cardiac dysfunction
Data Reviewed
-
EKG: Tracing Personally Visualized and interpreted (AV paced)
Radiology: Report Reviewed by me (CXR: #Elevated troponin: - This was not an NSTEMI; cardiac catheterization revealed that mild troponin elevation is secondary to acute nonischemic myocardial injury in the setting of acute HFmrEF (40-45%).
-Troponin peaked at 0.950. -Echocardiogram shows LVEF 40-45%, inferior/inferoseptal hypokin)
Medical Tests (Nuc Med, Echo etc): Report Reviewed by me (SANDOVAL: Severely dilated left ventricle. Severely reduced left ventricular systolic function. LVEF 20%. 2. Mild aortic regurgitation. 3. Moderate tricuspid regurgitation. 4. No thrombus in
the EPHRAIM.) and Other (RHC: Elevated right greater than left ventricular filling pressure, mild pulmonary hypertension, and reduced cardiac index. Weight 67 kg.)
Labs: Labs Reviewed by me
[2025-04-26] MEDS: PACERONE 200 MG PO (11:05)
[2025-04-26] MEDS: FARXIGA 10 MG PO (11:05)
[2025-04-26] MEDS: DIOVAN 40 MG PO (11:05)
[2025-04-26] MEDS: SYNTHROID 75 MCG PO (11:05)
[2025-04-26] MEDS: ASPIR LOW (ENTERIC COATED) 81 MG PO (11:05)
[2025-04-26] MEDS: LASIX 40 MG PO (11:05)
[2025-04-26] MEDS: VIBRAMYCIN 50 MG PO (11:06)
--- NOTE | 2025-04-26 12:18 | PTCARENOTE ---
Patient received to [address] [place] at 1000 accompanied by , 1 assist to scale and 1 assist with walker to bed. Pt denies any pain or discomfort, able to make his needs known. Skin is intact, did develop some bruising on his b/l arms secondary to
blood draws and pt is on coumadin . Resting at present , call pena in room.
[2025-04-26 13:24] LABS: Potassium 3.7 mmol/L (3.5-5.1)
--- NOTE | 2025-04-26 16:54 | W.PN.UPDATE ---
Update Note
Progress Note Update
Device Rep (Braxton from [employer]) contacted me and told me that the ER interrogation showed LV output was auto-programmed to max and RV threshold appeared greater than his programmed output. Therefore, he came and checked the patient's device
in person and patient's manual LV thresholds are normal and Braxton programmed back down to 2.5 V output and increased his RV output to 3v from 2.4 v. There were no AF/VT/tachy therapies seen. Presenting AP/LV paced, underlying SB with LBBB.
[2025-04-26] MEDS: LIPITOR 80 MG PO (17:10)
[2025-04-26] MEDS: COUMADIN 1 MG PO (17:10)
[2025-04-26] MEDS: DIOVAN PO (19:33)
[2025-04-26] MEDS: MELATONIN 5 MG PO (21:24)
[2025-04-27] VITALS (8 sets, daily range): BP systolic 93–118; BP diastolic 51–64; PULSE 59–66; O2SAT 98; BMI 23.2
[2025-04-27] MEDS: SYNTHROID 75 MCG PO (03:55)
[2025-04-27] MEDS: ASPIR LOW (ENTERIC COATED) 81 MG PO (08:19)
[2025-04-27] MEDS: PACERONE 200 MG PO (08:19)
[2025-04-27] MEDS: LASIX 40 MG PO (08:20)
[2025-04-27] MEDS: DIOVAN 40 MG PO (08:20)
[2025-04-27 09:08] LABS: INR 2.93; PT 30.9 Sec (11.4-14.6)
[2025-04-27 09:09] LABS: Hematocrit 36.7 % (39.0-52.0); Hemoglobin 12.8 g/dL (13.0-18.0); Mean Corp Hgb Conc. 34.9 g/dL (33.0-37.0); Mean Corpuscular Volume 95.1 fL (80.0-94.0); Platelet Count 85 10^3/uL (130-400); Red Cell Dist. Width 16.2 % (11.5-14.5)
[2025-04-27 09:36] LABS: Blood Urea Nitrogen 34 mg/dl (9-20); Calcium 8.8 mg/dl (8.4-10.2); Carbon Dioxide 27 mmol/L (22-30); Chloride 101 mmol/L (98-107); Estimated Creatinine Clearance 28 ml/min; Glucose 73 mg/dl (70-99); Potassium 3.1 mmol/L (3.5-5.1); Sodium 132 mmol/L (135-145); eGFR 39.26
--- NOTE | 2025-04-27 09:56 | W.PN.CD ---
Today's Communication / Plan
-
Cont current cardiac meds
No further recommendations.
We will sign off please call with questions/concerns. He has scheduled f/u on 05/05/2025 at 9:20 am.
Impression / Plan
-
Weakness, severe:
-does not appear to be related to an acute cardiac issue
-PT consulted
HFrEF: chronic baseline weight 139 lbs which he is at
-weight stable overall, lungs clear; does not appear volume overloaded to my assessment
-would continue Lasix 40 mg PO daily
ICM: EF 13% on 04/06/2025 by TTE, SANDOVAL EF 20% 04/21/25
-follows with advanced HF at [place]- no shocks
-COPY CENTER ASSOCIATE-D in place (BS)- interrogation done in ER and uploaded to chart- no VT/shocks on my review
-currently on Jardiance, metoprolol, valsartan, but meds limited by BP
PAF/Flutter (suspected to be typical)/ and a slower AT, paroxysmal:
-became persistent and likely contributed to recent CHF exacerbation. Therefore, amiodarone increased and patient s/p SANDOVAL/CV. Now maintaining SR.
-on warfarin- follow INR's daily
CAD with hx CABG:
-no CP
-continue ASA, statin, BB
-recent op Lexiscan with large infarct but no ischemia
Abnormal troponin:
-lower than last admit
-suspect chronic, non-ischemic myocardial injury in setting of renal and cardiac dysfunction
Physical Exam
Vital Signs/Labs
Vital Signs
Temp Pulse Resp BP Pulse Ox
98.0 F 61 16 113/63 97
04/27/25 08:05 04/27/25 08:05 04/27/25 08:05 04/27/25 08:05 04/27/25 08:05
04/26/25 04/27/25 04/28/25
06:59 06:59 06:59
Actual Weight 142 lb 13.753 oz 139 lb 5 oz
04/27/25 07:29
04/27/25 07:29
PT 30.9 Sec (11.4-14.6) H 04/27/25 07:29
INR 2.93 04/27/25 07:29
04/26/25
05:31
Jif-Q-Jlsacrfqncy Pept 8200
LAB Results
04/26/25
05:31
Troponin I 0.065 H*
Physical Exam
Constitutional: No acute distress
EENT: Anicteric
Cardiovascular: Rhythm & rate is regular and Pedal edema present (trivial )
Respiratory: Respiratory effort normal and Lungs clear to auscul.
GI: Soft
Neuro/Psych: Alert and Oriented
Data Reviewed
-
Date of Service: April 27, 2025
EKG: Tracing Personally Visualized and interpreted (paced)
Echo: Report Reviewed by me
Labs: Labs Reviewed by me
--- NOTE | 2025-04-27 12:25 | CM ---
Addendum entered by Dyan Henson 04/27/25 12:36:
PCP: Dr Holloway
Pharmacy: [facility] in [place]
Original Note:
credentialing manager reviewed patient's chart and met with patient and patient stated that he lives with his spouse in a one story home with one step to enter, patient is independent with adl's and ambulation, patient has been using a walker due to
difficulty with ambulating. Patient and spouse are interested in skilled placement options reviewed and they have selected [facility], referral sent to [facility].
Plan; Await PT/OT evaluations.
--- NOTE | 2025-04-27 13:32 | W.PN.HOSP.TC ---
Today's Communication/Plan
-
Volume status currently optimized
Continue current medication regimen
PT assessment
Orthostatics
SNF placement pending bed availability
Assessment / Plan
Assessment / Plan
Impression
This is a 85-year-old male with past medical history of ischemic cardiomyopathy EF 13 to 20% status post ABRADING MACHINE TENDER-D, atrial fibrillation status post DCCV and currently in a paced rhythm, recent cardiogenic shock requiring milrinone drip now presenting to
the emergency department with episode of a fall and difficulty getting up without any loss of consciousness. He has no focal logical deficits. His exam reveals some mild volume overload with bilateral peripheral edema with trace to 1+ but no JVD
and no pulmonary edema and oxygen requirement is at baseline. His troponin is slightly elevated at 0.06 which is lower than his prior last month, BNP pending, renal function and electrolytes are essentially at baseline. There is no signs of an
acute infection urinary or otherwise. I suspect patient has some generalized weakness although gaining with physical therapy still has challenges. I do not see evidence of an acute exacerbation of his cardiovascular status nor any significant
difference in his baseline blood pressure. There is possibility of a mild dehydration with recent up titration of his Lasix but he only received 40 mg additional dose once. BP has been relatively stable in the 90s systolic in the emergency
department.
Presentation with generalized fatigue and weakness.
Chronic hypotension.
Conditions prior to admission:
Severe ischemic cardiomyopathy with LVEF of 13%
Status post ABRADING MACHINE TENDER�D.
Recent hospitalization with cardiogenic shock.
Paroxysmal A-fib/flutter status post cardioversion 04/21.
Anticoagulation with Coumadin.
Chronic hypervolemic hyponatremia.
CAD with history of CABG.
Chronically elevated troponins.
CKD stage IIIb baseline creatinine 1.7
Hypothyroidism on replacement
Plan
Patient presents with generalized fatigue and weakness.
This is likely multifactorial
Ischemic cardiomyopathy
Concern for decompensated CHF severely reduced EF
Denies chest pain, chronically shortness of breath.
States being compliant with outpatient medication regimen including Lasix. Was given additional Lasix 40 mg 2 days prior to presentation with concern for peripheral edema.
Stable respiratory status.
Noted with marginal BP which is likely chronic.
Possibly around 1-2 pounds above dry weight (62KG�64KG)
Preadmission GDMT regimen including Toprol-X 12.5 mg at bedtime, valsartan 40 mg twice daily, Lasix 40 mg daily, Farxiga 10 mg daily
Check orthostatics
Paroxysmal A-fib/flutter.
Recent cardioversion on 04/21
Continue amiodarone
Continue Toprol
Continue anticoagulation with Coumadin with goal INR 2�3
Chronic hypovolemic hyponatremia
Monitor sodium level with diuresis
CKD stage IIIb.
Creatinine at the baseline
Monitor
Hypothyroidism
On replacement
PT eval
Full code
DVT prophylaxis Coumadin
Anticipated Discharge: Within 24 hours
Subjective/Interval History
-
Date of Service: April 27, 2025
Objective Data
-
Labs:
Laboratory Results
04/27/25
07:29
WBC 6.2
Hgb 12.8 L
Hct 36.7 L
Plt Count 85 L
PT 30.9 H
INR 2.93
Sodium 132 L
Potassium 3.1 L
Chloride 101
Carbon Dioxide 27
BUN 34 H
Creatinine 1.7 H
Glucose 73
Calcium 8.8
Vital Signs:
Vital Signs
Temp Pulse Resp BP Pulse Ox
97.7 F 59 20 100/51 97
04/27/25 12:01 04/27/25 12:01 04/27/25 12:01 04/27/25 12:01 04/27/25 12:01
I&O
04/26/25 04/27/25 04/28/25
06:59 06:59 06:59
Intake Total 250 / 250 660 / 660 240 / 240
Output Total 150 / 150 1075 / 1075 400 / 400
Balance 100 / 100 -415 / -415 -160 / -160
Physical Exam
-
General: Well Developed and No Apparent Distress
HEENT: Normocephalic, Atraumatic and Moist Mucous Membranes
Respiratory: Clear to Auscultation
Cardiac: Regular Rhythm and S1/S2; Negative Murmur, Rub or Gallop
GI: Soft, Nontender, Nondistended and Normal Bowel Sounds; Negative Organomegaly
Rectal: Deferred by Provider
Musculoskeletal: No Clubbing, No Cyanosis and No Edema
Skin: Negative Rash
Neuro: Nonfocal/Grossly Intact
[2025-04-27] MEDS: FARXIGA 10 MG PO (14:33)
[2025-04-27] MEDS: VIBRAMYCIN 50 MG PO (14:33)
[2025-04-27] MEDS: LIPITOR 80 MG PO (17:59)
[2025-04-27] MEDS: COUMADIN 1 MG PO (17:59)
[2025-04-27] MEDS: DIOVAN PO (19:42)
[2025-04-27] MEDS: MELATONIN 5 MG PO (22:04)
[2025-04-28 03:11] VITALS: BP 108/65
[2025-04-28] MEDS: SYNTHROID 75 MCG PO (03:36)
[2025-04-28 06:00] VITALS: BMI 23.2
[2025-04-28 07:16] VITALS: BP 111/57
[2025-04-28] MEDS: ASPIR LOW (ENTERIC COATED) 81 MG PO (08:28)
[2025-04-28] MEDS: PACERONE 200 MG PO (08:28)
[2025-04-28] MEDS: DIOVAN 40 MG PO (08:28)
[2025-04-28] MEDS: LASIX 40 MG PO (08:28)
[2025-04-28 10:58] LABS: INR 2.92; PT 30.4 Sec (11.4-14.6)
[2025-04-28 11:07] LABS: Blood Urea Nitrogen 33 mg/dl (9-20); Calcium 9.2 mg/dl (8.4-10.2); Carbon Dioxide 28 mmol/L (22-30); Chloride 100 mmol/L (98-107); Estimated Creatinine Clearance 30 ml/min; Glucose 96 mg/dl (70-99); Potassium 3.2 mmol/L (3.5-5.1); Sodium 133 mmol/L (135-145); eGFR 42.22
[2025-04-28 11:15] VITALS: BP 83/47
[2025-04-28 12:06] LABS: COVID-19 Antigen Negative (Negative)
--- NOTE | 2025-04-28 12:18 | W.PN.HOSP.TC ---
Addendum entered and electronically signed by Jeremi Del Rosario MD 04/28/25 14:26:
Disposition to custodial facility discussed and approved by cardiology
Original Note:
Today's Communication/Plan
-
Continue current cardiovascular medication regiment
Physical therapy assessment.
Placement to SNF rehab
Assessment / Plan
Assessment / Plan
Impression
This is a 85-year-old male with past medical history of ischemic cardiomyopathy EF 13 to 20% status post SYSTEMS INTEGRATION ENGINEER-D, atrial fibrillation status post DCCV and currently in a paced rhythm, recent cardiogenic shock requiring milrinone drip now presenting to
the emergency department with episode of a fall and difficulty getting up without any loss of consciousness. He has no focal logical deficits. His exam reveals some mild volume overload with bilateral peripheral edema with trace to 1+ but no JVD
and no pulmonary edema and oxygen requirement is at baseline. His troponin is slightly elevated at 0.06 which is lower than his prior last month, BNP pending, renal function and electrolytes are essentially at baseline. There is no signs of an
acute infection urinary or otherwise. I suspect patient has some generalized weakness although gaining with physical therapy still has challenges. I do not see evidence of an acute exacerbation of his cardiovascular status nor any significant
difference in his baseline blood pressure. There is possibility of a mild dehydration with recent up titration of his Lasix but he only received 40 mg additional dose once. BP has been relatively stable in the 90s systolic in the emergency
department.
Presentation with generalized fatigue and weakness.
Chronic hypotension.
Conditions prior to admission:
Severe ischemic cardiomyopathy with LVEF of 13%
Status post SYSTEMS INTEGRATION ENGINEER�D.
Recent hospitalization with cardiogenic shock.
Paroxysmal A-fib/flutter status post cardioversion 04/21.
Anticoagulation with Coumadin.
Chronic hypervolemic hyponatremia.
CAD with history of CABG.
Chronically elevated troponins.
CKD stage IIIb baseline creatinine 1.7
Hypothyroidism on replacement
Plan
Patient presents with generalized fatigue and weakness.
This is likely multifactorial
Ischemic cardiomyopathy
Concern for decompensated CHF severely reduced EF
Denies chest pain, chronically shortness of breath.
States being compliant with outpatient medication regimen including Lasix. Was given additional Lasix 40 mg 2 days prior to presentation with concern for peripheral edema.
Stable respiratory status.
Noted with marginal BP which is likely chronic.
Possibly around 1-2 pounds above dry weight (62KG�64KG)
Preadmission GDMT regimen including Toprol-X 12.5 mg at bedtime, valsartan 40 mg twice daily, Lasix 40 mg daily, Farxiga 10 mg daily
Check orthostatics
Paroxysmal A-fib/flutter.
Recent cardioversion on 04/21
Continue amiodarone
Continue Toprol
Continue anticoagulation with Coumadin with goal INR 2�3
Chronic hypovolemic hyponatremia
Monitor sodium level with diuresis
CKD stage IIIb.
Creatinine at the baseline
Monitor
Hypothyroidism
On replacement
Ambulatory dysfunction multifactorial and due to advanced CHF, fluctuating volume status and marginal hypotension, severe deconditioning.
While optimized in terms of CHF with ongoing medication regimen, patient is in need of custodial rehab to reach ambulatory goals.
Full code
DVT prophylaxis Coumadin
Anticipated Discharge: Within 24 hours
Subjective/Interval History
-
Date of Service: April 28, 2025
Objective Data
-
Labs:
Laboratory Results
04/28/25
10:03
PT 30.4 H
INR 2.92
Sodium 133 L
Potassium 3.2 L
Chloride 100
Carbon Dioxide 28
BUN 33 H
Creatinine 1.6 H
Glucose 96
Calcium 9.2
Vital Signs:
Vital Signs
Temp Pulse Resp BP Pulse Ox
97.7 F 61 18 83/47 98
04/28/25 11:15 04/28/25 11:15 04/28/25 11:15 04/28/25 11:15 04/28/25 11:15
I&O
04/27/25 04/28/25 04/29/25
06:59 06:59 06:59
Intake Total 660 / 660 480 / 480
Output Total 1075 / 1075 700 / 700
Balance -415 / -415 -220 / -220
Physical Exam
-
General: Well Developed and No Apparent Distress
HEENT: Normocephalic, Atraumatic and Moist Mucous Membranes
Respiratory: Clear to Auscultation
Cardiac: Regular Rhythm and S1/S2; Negative Murmur, Rub or Gallop
GI: Soft, Nontender, Nondistended and Normal Bowel Sounds; Negative Organomegaly
Rectal: Deferred by Provider
Musculoskeletal: No Clubbing, No Cyanosis and No Edema
Skin: Negative Rash
Neuro: Nonfocal/Grossly Intact
[2025-04-28] MEDS: FARXIGA 10 MG PO (12:24)
[2025-04-28] MEDS: VIBRAMYCIN 50 MG PO (12:24)
--- NOTE | 2025-04-28 12:39 | CM ---
Addendum entered by Dyan Henson 04/28/25 15:16:
Waiver Auth completed and provided to admissions at [facility], leroy will go by w/c transport. daughter is aware of cost of transportation.
[facility]
Report [phone]

Original Note:
Chart reviewed and bed is available at [facility] today, patient does qualify for [facility] Waiver program and behavioral health case manager reached out for Auth, physician documentation has been completed. COVID testing also has been completed.
Plan; Skilled placement at [facility] pending Waiver Auth.
--- NOTE | 2025-04-28 15:00 | W.DS.TRANS ---
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
-
Discharge Instructions:
Sleep Apnea Risk Intermediate
Discharge Diagnosis/Procedures CHF
Ischemic cardiomyopathy
Diet 2 Gram Sodium
Blood Work INR 05/01/25
Instructions:
Stand-Alone Forms:
Changes to Home Medications: No
Discharge Medications:
DC Medications w/original date entered in [employer]
atorvastatin 80 mg tablet 80 mg PO QPM High Cholesterol 12/01/17
cholecalciferol (vitamin D3) 25 mcg (1,000 unit) capsule (Vitamin D3) 1,000 unit PO DAILY@1200 Supplement 12/01/17
acetaminophen 500 mg tablet (Tylenol Extra Strength) 500 mg PO DAILY mild Pain 04/06/25
aspirin 81 mg tablet,delayed release 81 mg PO DAILY Blood Clot Prevention/Tx 04/06/25
doxycycline hyclate 50 mg capsule 50 mg PO DAILY@1200 Infection 04/06/25
empagliflozin 10 mg tablet (Jardiance) 10 mg PO DAILY@1200 Heart Failure 04/06/25
levothyroxine 75 mcg tablet (Synthroid) 75 mcg PO DAILY Thyroid 04/06/25
melatonin 5 mg tablet 10 mg PO HS Sleep 04/06/25
amiodarone 200 mg tablet (Pacerone) 200 mg PO DAILY Arrhythmia #30 tabs 04/12/25
valsartan 40 mg tablet 40 mg PO BID Heart Failure #60 tabs 04/12/25
furosemide 40 mg tablet 40 mg PO DAILY Heart Failure 04/26/25
warfarin 1 mg tablet 1 mg PO MoTuWeTh@1900 Blood Clot Prevention/Tx 04/26/25
warfarin 2 mg tablet (Jantoven) 2 mg PO SuFrSa@1900 Blood clot prevention/tx 04/26/25
metoprolol succinate 25 mg tablet,extended release 24 hr 12.5 mg (1/2 x 25 mg) PO HS high blood pressure #0 tabs 04/28/25
Home Medication Changes
Pending Results: No
[2025-04-28 15:13] VITALS: BP 91/48
[2025-04-28] MEDS: KCL 40 MEQ PO (15:30)
== END 2025-04-28 16:02 | DRG 302 ==
LOC: 4 WEST ACU 09:30
PROVIDERS: Nurse Practitioner; ADMITTING PHYSICIAN Internal Medicine; ATTENDING PHYSICIAN Internal Medicine; CONSULT PHYSICIAN Internal Medicine; EMERGENCY PHYSICIAN Student in an Organized Health Care Education/Training Program; FAMILY PHYSICIAN Family Medicine
DX: I25.5 Ischemic cardiomyopathy (principal); I50.23 Acute on chronic systolic (congestive) heart failure; E87.1 Hypo-osmolality and hyponatremia; I13.0 Hypertensive heart and chronic kidney disease with heart failure and stage 1 through stage 4 chronic kidney disease, or unspecified chronic kidney disease; I47.19 Other supraventricular tachycardia; I48.3 Typical atrial flutter; I95.89 Other hypotension; I5A Non-ischemic myocardial injury (non-traumatic); R53.1 Weakness; E86.0 Dehydration; I48.0 Paroxysmal atrial fibrillation; E03.9 Hypothyroidism, unspecified; E78.00 Pure hypercholesterolemia, unspecified; D72.819 Decreased white blood cell count, unspecified; R79.1 Abnormal coagulation profile; N18.32 Chronic kidney disease, stage 3b; I25.10 Atherosclerotic heart disease of native coronary artery without angina pectoris; R62.7 Adult failure to thrive; I45.10 Unspecified right bundle-branch block; W01.190A Fall on same level from slipping, tripping and stumbling with subsequent striking against furniture, initial encounter; Y93.9 Activity, unspecified; Y92.009 Unspecified place in unspecified non-institutional (private) residence as the place of occurrence of the external cause; Z95.810 Presence of automatic (implantable) cardiac defibrillator; Z79.899 Other long term (current) drug therapy; Z79.01 Long term (current) use of anticoagulants; Z95.1 Presence of aortocoronary bypass graft; Z79.890 Hormone replacement therapy; Z79.84 Long term (current) use of oral hypoglycemic drugs; Z79.82 Long term (current) use of aspirin; Z11.52 Encounter for screening for COVID-19
CPT/HCPCS: 71045; 80048; 83880; 84132; 84484; 85025; 85027; 85610; 87811; 93005; 97162; 97530; 99285

== ENCOUNTER → 2025-05-15 10:07 | Outpatient (REF) | payer MEDICARE, SELFPAY ==
[2025-05-15 12:44] LABS: INR 2.17; PT 24.3 Sec (11.4-14.6)
== END ==
LOC: HWLAB 10:07
PROVIDERS: ATTENDING PHYSICIAN Internal Medicine Cardiovascular Disease; FAMILY PHYSICIAN Family Medicine
DX: I48.0 Paroxysmal atrial fibrillation (principal)
CPT/HCPCS: 36415; 85610

== ENCOUNTER → 2025-05-18 10:11 | Outpatient (REF) | payer MEDICARE, SELFPAY ==
[2025-05-18 12:56] LABS: INR 3.84; PT 37.9 Sec (11.4-14.6)
== END ==
LOC: HWLAB 10:11
PROVIDERS: ATTENDING PHYSICIAN Internal Medicine Cardiovascular Disease; FAMILY PHYSICIAN Family Medicine
DX: I48.0 Paroxysmal atrial fibrillation (principal)
CPT/HCPCS: 36415; 85610

== ENCOUNTER 2025-05-22 19:23 | Inpatient (IN) | payer MEDICARE, SELFPAY ==
[2025-05-22] VITALS (8 sets, daily range): BP systolic 105–127; BP diastolic 53–83; BMI 24.8
--- NOTE | 2025-05-22 15:57 | ED.GENMED ---
History of Present Illness
General
Chief Complaint: Abnormal Lab Value
Source: patient and spouse
Exam Limitations: none
Time Seen by Provider: 05/22/25 15:47
History of Present Illness
History of Present Illness:
85-year-old male presents for 2 issues. 1 is swelling to the left arm. Noted the last few days. No pain. Weight has been stable. Some increased shortness of breath with exertion recently. Ongoing leg edema right greater than left that has been
there. Secondarily his INR has been elevated at 5.8. No unusual bleeding. No chest pain.
Past History
Past History
ED Past Medical History: Arrthythmia (Paroxysmal atrial fibrillation anticoagulated on warfarin), CAD and CHF
ED Past Surgical History: Cardiac (CABG x3 July 2016 at [facility] ablation for atrial fibrillation.) and Other (Hernia repair/cataract)
Social History
Tobacco: Non-smoker
Alcohol: None
Drug: None
Personal:
Living: with family
Employment: Other
Family History
Family History: Other
Review of Systems
Review of Systems
All Other Systems: Not applicable
Constitutional: Denies fever
Respiratory: Reports trouble breathing (With exertion)
Cardiac: Denies chest pain
Phy Exam
Physical Exam
Physical Exam:
GENERAL: Alert and oriented in no apparent distress
EYE: Orbits normal.
NECK: Supple, no significant adenopathy. no thyroid palpable
ENT: Pharynx without erythema
CARDIAC: Regular rate and rhythm Defibrillator left upper chest wall mild midsystolic murmur and click.
LUNGS: Clear breath sounds,normal
ABDOMEN: Soft, without focal tenderness or distention
NEUROLOGICAL: Alert and oriented , grossly non-focal. Elderly and frail
SKIN: Warm and dry, no rash or lesion, no discoloration, skin intact.
MUSCULOSKELETAL: Pitting edema bilateral lower extremities significant right greater than left. Pitting edema upper extremities left greater than right. Nothing to support secondary cellulitis. Good color to the hands.
PSYCH: Normal and appropriate interaction.
Course
Orders/Labs/Results
Orders:
Orders
05/22/25 15:11
Electrocardiogram (*1) Urgent
Reason for Study: Fatigue / Weakness
EKG- Treatment ONCE
05/22/25 15:56
CXR2 [CR Chest - 2 Views ] Urgent
Comment:
Reason For Exam: Increased edema
05/22/25 16:00
CMP [Comprehensive Metabolic Panel] Urgent
Complete Blood Count/With Diff Urgent
Free T4 Urgent
NT-proBNP Urgent
PT/INR [Prothrombin Time] Urgent
PTT Urgent
TSH Reflex To Free T4 Urgent
Troponin I Urgent
05/22/25 17:23
Furosemide [Lasix] 40 mg IV NOW STA
05/22/25 18:42
Admit/Transfer Patient As Directed
Co-Sign Provider:
Level of Care: Inpatient admission
Assign to:: Telemetry
Physician / Group: Dwight Warren
Diagnosis: HFrEF exacerbation, hyponatremia, hypokalemia, Supratherapeutic INR
Reason for Telemetry: Acute Heart Failure
Date to Stop Telemetry: 05/25/25
Time to Stop Telemetry: 11:00
Reason for Hospitalization: HFrEF exacerbation, hyponatremia, hypokalemia, Supratherapeutic INR
Expected length of stay greater than two midnights?: Yes
ELOS- Estimated Length of Stay in days: 3
I certify the patient meets the requirements for IP care: Yes
PRN Pain Medication Management As Directed
May give lesser potent ordered pain med per pt: Yes
preference::
Protocol:: Medication orders for pain may be administered in a
manner that supports deferring to patient preference
when the pt is:
- Requesting an ordered lesser potent pain medication.
Least to most potent pain medications are defined
as: acetaminophen < NSAID < tramadol < opioids
(morphine, oxycodone, hydromorphone).
- Requesting a lesser dose of the same medication IF
ORDERED.
- Requesting a less intrusive route of administration
if both routes are prescribed by the provider (PO <
IV).
05/22/25 18:44
Code Status As Directed
Resuscitation Status: Full Code
05/22/25 18:49
Potassium Chloride [KCl] 40 meq PO NOW STA
05/25/25 11:00
DC Protocol for Telemetry ONCE
Abnormal Lab Results
05/22/25
16:00
RBC 3.56 L 10^6/uL
(4.70-6.10)
Hgb 11.8 L g/dL
(13.0-18.0)
Hct 34.0 L %
(39.0-52.0)
MCV 95.5 H fL
(80.0-94.0)
MCH 33.1 H pg
(27.0-31.0)
RDW 16.4 H %
(11.5-14.5)
Plt Count 126 L 10^3/uL
(130-400)
MPV 10.5 H fL
(7.4-10.4)
Absolute Lymphs (auto) 0.7 L 10^3/uL
(1.2-3.4)
Absolute Monos (auto) 0.7 H 10^3/uL
(0.1-0.6)
Neutrophils % 77.9 H %
(42.2-75.2)
Lymphocytes % 10.1 L %
(20.5-51.1)
Monocytes % 9.8 H %
(1.7-9.3)
PT 49.3 H Sec
(11.4-14.6)
INR 5.53 H*
APTT 68.9 H Sec
(23.4-35.0)
Sodium 125 L mmol/L
(135-145)
Potassium 3.3 L mmol/L
(3.5-5.1)
Chloride 91 L mmol/L
(98-107)
BUN 30 H mg/dl
(9-20)
Creatinine 1.7 H mg/dL
(0.7-1.3)
Glucose 107 H mg/dl
(70-99)
Total Bilirubin 2.3 H mg/dl
(0.2-1.3)
AST 89 H U/L
(17-59)
ALT 52 H U/L
(0-50)
Alkaline Phosphatase 131 H U/L
(38-126)
Troponin I 0.036 H* ng/ml
Total Protein 5.4 L g/dl
(6.3-8.2)
Albumin 3.0 L g/dl
(3.5-5.0)
TSH (Reflex) 6.69 H uIU/ml
(0.47-4.68)
Free T4 2.72 H ng/dl
(0.78-2.19)
05/22/25 16:00
05/22/25 16:00
Vital Signs
Initial and Last Documented VS:
Initial Vital Signs
Temp Pulse Resp BP Pulse Ox
97.6 F 60 18 105/53 100
05/22/25 15:04 05/22/25 15:04 05/22/25 15:04 05/22/25 15:04 05/22/25 15:04
Last Documented Vital Signs
Temp Pulse Resp BP Pulse Ox
97.6 F 69 16 126/77 94
05/22/25 15:04 05/22/25 18:00 05/22/25 18:05 05/22/25 18:00 05/22/25 18:05
MDM/Problems Addressed
Differential Diagnosis Includes:
Patient with anasarca diffuse edema but greatest in the lower extremities and left upper extremity. Not in obvious heart failure. Weight has been stable. Check from B chest x-ray renal function. Highly doubt clotting issue. Will recheck INR.
*Radiology
Radiology exam reviewed: preliminary read by ED provider (CHF)
*Pulse Oximetry
SaO2: 97
Oxygen Mode of Delivery: Room air
Patient hypoxic: no
*EKG
Interpreted by ED Provider?: Yes
Interpretation: abnormal
Comparison EKG: changes noted
Heart Rate: 62
Rate: normal
Rhythm: other (Atrial sensed/ventricular paced. Prolonged AV conduction)
[place]: normal axis
Interval: normal interval
QRS Pattern: normal QRS
Ischemia: non-specific ST changes
*Critical Care Note
Total Time (30-74mins, 75-104mins- exclusive of procedures): Not Applicable
Data Reviewed
Review of Other/Old Records Reveals: Labs, Records, Radiology Studies and Testing
ED Attending Note
-
Portions of this chart may have been created with voice recognition software.� Occasional wrong word or��sound alike� substitutions may have occurred due to the inherent limitations of voice recognition software.
Discharge Plan
Departure
Patient Disposition: Admit
Date of Disposition: 05/22/25
Time of Disposition: 17:24
Presentation/result/management discussed w/ accepting MD/DO: Hospitalist
Discharge Problem:
Anasarca, CHF, Hyponatremia, Supratherapeutic INR, Chronic renal insufficiency
Prescriptions:
No Action
atorvastatin 80 MG tablet
80 mg PO QPM
cholecalciferol (vitamin D3) [Vitamin D3] 1,000 UNIT capsule
1,000 unit PO DAILY@1200
doxycycline hyclate 50 mg Capsule
50 mg PO DAILY@1200
acetaminophen [Tylenol Extra Strength] 500 mg Tablet
500 mg PO DAILY
levothyroxine [Synthroid] 75 mcg Tablet
75 mcg PO DAILY
aspirin 81 mg Tablet,Delayed Release (Dr/Ec)
81 mg PO DAILY
amiodarone [Pacerone] 200 mg Tablet
200 mg PO DAILY Qty: 30 2RF
warfarin 1 mg Tablet
2 mg PO QPM
Rx Instructions:
HOLD 05/22/2025 AND 05/23/2025
furosemide 40 mg tablet
40 mg PO DAILY
trazodone 50 mg Tablet
50 mg PO HS
Referrals:
Pool Holloway MD [Family Provider, Family Practice]
Interventions
Interventions:
*Risk Screen - Suicide Last Done: 05/22/25 15:44
*General Assessment Last Done: 05/22/25 15:49
*Neglect/Abuse Screening Last Done: 05/22/25 15:44
*ED- Fall Risk Assessment Last Done: 05/22/25 15:49
*ED COVID-19 Vaccine History Last Done: 05/22/25 15:49
*ED Influenza Vaccine History Last Done: 05/22/25 15:49
Discharge Date and Time
Print Language: BOLIVIAN
[2025-05-22 16:23] LABS: PT 49.3 Sec (11.4-14.6)
[2025-05-22 16:24] LABS: APTT 68.9 Sec (23.4-35.0)
[2025-05-22 16:25] LABS: ALT (SGPT) 52 U/L (0-50); AST (SGOT) 89 U/L (17-59); Albumin 3.0 g/dl (3.5-5.0); Alkaline Phosphatase 131 U/L (38-126); Blood Urea Nitrogen 30 mg/dl (9-20); Calcium 9.0 mg/dl (8.4-10.2); Carbon Dioxide 30 mmol/L (22-30); Chloride 91 mmol/L (98-107); Glucose 107 mg/dl (70-99); Potassium 3.3 mmol/L (3.5-5.1); Sodium 125 mmol/L (135-145); Total Protein 5.4 g/dl (6.3-8.2); eGFR 39.26
[2025-05-22 16:29] LABS: Hematocrit 34.0 % (39.0-52.0); Hemoglobin 11.8 g/dL (13.0-18.0); INR 5.53; Mean Corp Hgb Conc. 34.7 g/dL (33.0-37.0); Mean Corpuscular Volume 95.5 fL (80.0-94.0); Nucleated Red Blood Cells % 0 % (-); Platelet Count 126 10^3/uL (130-400); Red Cell Dist. Width 16.4 % (11.5-14.5)
[2025-05-22 16:39] LABS: Troponin I 0.036 ng/ml
[2025-05-22] MEDS: LASIX 40 MG IV (17:31)
--- NOTE | 2025-05-22 17:36 | HPS.HSE ---
Family Physician
-
Family Physician: Pool Holloway
Chief Complaint
-
abnormal out patient labs
History of Present Illness
Patient is a 85-year-old male with past medical history significant for hypertension, hypothyroidism, HFrEF (EF 13%) s/p MODEL TECHNICIAN-D, CAD s/p CABG, PAF on Coumadin and CKD stage 3a who presented to [facility] ED for evaluation of abnormal out patient labs.
Patient and at bedside to assist with HPI as patient expressed he does not remember why he came to the hospital. Patient this morning had INR checked and resulted at 5.8, call to primary care and cardiology office for instructions. Patient
ultimately decided to come to ED for evaluation. Patients states that on May 18 INR was check and was 3.8 and cardiology office reduced Coumadin from 3mg daily to 2mg daily and recheck was scheduled for today that resulted in 5.8. Denies
any signs of bleeding. Patient presented with an anasarca per ED note and stated over past 2 days patient has had increased exertional dyspnea that required him to stop and rest before continuing along. Patient recently hospitalized 04/26/2025
- 04/28/25 for decompensated AFTT and discharged to rehab at [facility] where believes patient has had cognitive decline since then with significant memory loss.
Medical History
Past Medical History
Past Medical History: Reports Other
Additional Past Medical History:
hypertension
hypothyroidism
HFrEF (EF 13%) s/p MODEL TECHNICIAN-D
CAD s/p CABG
PAF on Coumadin
CKD stage 3A
Hx prostate cancer s/p radiation
Past Surgical History: Reports Other
Additional Past Surgical History:
Tonsillectomy 09/02/2016
Hernia repair 09/02/2016
CABG 09/02/2016
Hernia repair 06/19/2016
Ablations neck 3x 06/19/2016
Social History
Tobacco: Non-smoker
Alcohol: Occasional
Drug: None
Personal:
Living: With Family
Employment: Retired
Family History
Family History: Not pertinent
Allergies / Home Medications
Allergies reflects when Allergies were last updated in [facility].
Home Medications with original date entered in [facility]
Allergy/Medication List:
Allergies
Allergy/AdvReac Type Severity Reaction Status Date / Time
No Known Allergies Allergy Verified 10/19/18 11:20
Home Medications
atorvastatin 80 mg tablet 80 mg PO QPM High Cholesterol 12/01/17
cholecalciferol (vitamin D3) 25 mcg (1,000 unit) capsule (Vitamin D3) 1,000 unit PO DAILY@1200 Supplement 12/01/17
acetaminophen 500 mg tablet (Tylenol Extra Strength) 500 mg PO DAILY mild Pain 04/06/25
aspirin 81 mg tablet,delayed release 81 mg PO DAILY Blood Clot Prevention/Tx 04/06/25
doxycycline hyclate 50 mg capsule 50 mg PO DAILY@1200 Infection 04/06/25
levothyroxine 75 mcg tablet (Synthroid) 75 mcg PO DAILY Thyroid 04/06/25
amiodarone 200 mg tablet (Pacerone) 200 mg PO DAILY Arrhythmia #30 tabs 04/12/25
furosemide 40 mg tablet 40 mg PO DAILY Heart Failure 04/26/25
warfarin 1 mg tablet 2 mg PO QPM Blood Clot Prevention/Tx 04/26/25
trazodone 50 mg tablet 50 mg PO HS 05/22/25
Review of Systems
-
History Source: Patient
Constitutional: Denies Fever, Weight Gain, Weight Loss or Chills
EENT: Denies Sore Throat
Respiratory: Reports Trouble Breathing (exertional dyspnea x2 days ); Denies Cough or Hemoptysis
Cardiac: Denies Chest Pain, Diaphoresis, Palpitations or Syncope
Abdomen/GI: Denies Abdominal Pain, Nausea, Vomiting or Diarrhea
: Denies Dysuria, Frequency or Urgency
Skin: Denies Rash
Neurological: Denies Dizzy, Headache, Weakness or Numbness
Hematologic/Lymphatic: Denies Bleeding
Physical Exam
Vital Signs
Vital Signs
Temp Pulse Resp BP Pulse Ox
97.6 F 77 16 127/83 95
05/22/25 15:04 05/22/25 17:33 05/22/25 17:35 05/22/25 17:32 05/22/25 17:35
Physical Exam
General: Well Developed, Well Nourished, No Apparent Distress, Comfortable and Conversant
HEENT: NormoCephalic, Moist mucous membranes, Nose Appears Normal and Ears Appear Normal
Respiratory: Clear and Non Labored Respirations; No Wheezes, Rales, Rhonchi or Crackles
Cardiac: S1/S2, Regular Rhythm, Murmur, Peripheral Edema and Other (LCW pacer )
GI: Soft, Non Tender, Non Distended and Normal Bowel Sounds
Musculoskeletal: No Clubbing and No Cyanosis
Skin: Warm and IV/Catheter Site
Neuro: Awake and AO x 3
Hematologic/Lymphatic: No Lymphadenopathy
Psych: Calm and Intact Judgment/Insight
Laboratory Results
-
05/22/25 16:00
05/22/25 16:00
Laboratory Results
PT 49.3 Sec (11.4-14.6) H 05/22/25 16:00
INR 5.53 H* 05/22/25 16:00
APTT 68.9 Sec (23.4-35.0) H 05/22/25 16:00
Total Bilirubin 2.3 mg/dl (0.2-1.3) H 05/22/25 16:00
AST 89 U/L (17-59) H 05/22/25 16:00
ALT 52 U/L (0-50) H 05/22/25 16:00
Alkaline Phosphatase 131 U/L (38-126) H 05/22/25 16:00
Troponin I 0.036 ng/ml H* 05/22/25 16:00
Data Reviewed
-
Diagnostic Radiology: Report Reviewed by me (CXR: Mild CHF with small bilateral pleural effusions.)
Medical Tests (Nuc Med, Echo, EKG etc): Report Reviewed by me (EKG: SUSPECT ARM LEAD REVERSAL, INTERPRETATION ASSUMES NO REVERSAL Atrial-sensed ventricular-paced rhythm with prolonged AV conduction)
Lab Data: Labs Reviewed by me (INR 5.53, Na+ 125, K+ 3.3, BUN 30, Creat 1.7, eGFR 39.26, Tot Bili 2.3, AST 89, ALT 52, Alk Phos 131, Trop 0.036, pBNP 9980, TSH 6.69, F T4 2.72)
Impression/Plan
-
IMPRESSION/PLAN:
#anasarca 2/2 suspected HFrEF exacerbation
Trop 0.036, pBNP 9980
approximate 20 pound weight gain in last month
CXR: Mild CHF with small bilateral pleural effusions.
EKG: SUSPECT ARM LEAD REVERSAL, INTERPRETATION ASSUMES NO REVERSAL
Atrial-sensed ventricular-paced rhythm with prolonged AV conduction
- Admit to telemetry
- IV furosemide 40mg BID
- Consult Cardiology
#HFrEF (EF 13%)
s/p MODEL TECHNICIAN-D
- Hold PO furosemide
- daily weights
- I & Os
#hyponatremia
Na+ 125
- trend BMP
#hypokalemia
K+ 3.3
- replete
- trend BMP
#PAF
#supratherapeutic INR
INR 5.53
EKG: SUSPECT ARM LEAD REVERSAL, INTERPRETATION ASSUMES NO REVERSAL
Atrial-sensed ventricular-paced rhythm with prolonged AV conduction
- hold Coumadin
- check INR daily
- continue amiodarone
#transaminitis
Tot Bili 2.3, AST 89, ALT 52, Alk Phos 131
likely from hepatic congestion from CHF
no active bleeding
- monitor LFTs
#hypothyroidism
TSH 6.69, F T4 2.72
- continue levothyroxine
#CAD
s/p CABG
- continue aspirin and atorvastatin
#CKD stage 3A
BUN 30, Creat 1.7, eGFR 39.26
- appears to be patient baseline
- monitor BMP
Code status: full code
DVT prophylaxis: INR >5
--- NOTE | 2025-05-22 18:29 | W.PN.UPDATE ---
Update Note
Progress Note Update
This note serves as an addendum to the H&P by building equipment inspector SHIVANI�
Renata Hoang
HPI
85M HX severe ICM, LVEF 13%, Chr HFrEF, chr hypotension , PAF, on OAC , CKD3b, chr eleavted TPNI , Hypothyroid seen at ER:
- painless swelling to the left arm last few days.
- report stable Wt. has been stable.
- increased shortness of breath with exertion recently.
- Ongoing leg edema right greater than left that has been there.
- Secondarily his INR has been elevated at 5.8.
- No unusual bleeding.
- No chest pain.
Relevant VS
Temp Pulse Resp BP Pulse Ox
97.6 F 69 16 126/77 94
05/22/25 15:04 05/22/25 18:00 05/22/25 18:05 05/22/25 18:00 05/22/25 18:05
04/28/25
06:00 05/22/25
16:02
Actual Weight 63.248 kg 72.5 kg
PE
Gen: NAD,
HEENT: anicteric
Neck: supple
Lungs: symmetric AE
Cor: loud SM
Abdomen:�soft abdomen
ECONOMIC RESEARCH ANALYST: AAO3 NFND
MS: b/l Marshal edema
Psych: Nl mood and affect
Relevant Data
04/27/25 05/22/25
07:29 16:00
WBC 6.2 6.8
Hgb 12.8 L 11.8 L
MCV 95.1 H 95.5 H
Plt Count 85 L 126 L
05/18/25 05/22/25 05/22/25
10:33 10:39 16:00
INR 3.84 5.81 H* 5.53 H*
04/28/25 05/22/25
10:03 16:00
Sodium 133 L 125 L
Potassium 3.2 L 3.3 L
BUN 33 H 30 H
Creatinine 1.6 H 1.7 H
eGFR 42.22 39.26
Total Bilirubin 2.3 H
AST 89 H
ALT 52 H
Troponin I 0.036 H*
04/26/25 05/22/25
05:31 16:00
Zwu-F-Tdoqkeeaezf Pept 8200 9980
CXR:
Mild CHF with small bilateral pleural effusions.
Last hospitalist admission: 04/27/2025 - 04/28/2025
DISCHARGE DIAGNOSIS:
Generalized fatigue and weakness with overall
deconditioning.
ASSESSMENT & PLAN
Decompensated chr HFrEF - CHF
Anasarca due to Volume overload complicated by acute HF and Suspect hepatic congestion
Significant Wt gain 20.3 lbs( 9.26 kg ) over 4 weeks
- IV Lasix 40 at ER
- IV Lasix 40 mg BID
- Daily Wt, daily BMP
- CBC card consult
Super Rx-tic INR and abn LFTs are likely due to hepatic congestion due to CHF
No active bleeding
Stable Hgb
- IV Diuresis and observe daily LFTs and daily INR
- Hold Warfarin
Acute hypernatremia due to CHF flare
Chronic hypovolemic hyponatremia
- Monitor Na with IV diuresis
ICM: EF 13% on 04/06/2025 by TTE, SANDOVAL EF 20% 04/21/25
- in decompensated CHF severely reduced EF
- respiratory status.
- marginal BP which is likely chronic.
- -follows with advanced HF at [place]- no shocks
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
- GDMT: Rx limited by hypotension
CKD3b - somewhat stable
Creatinine at the baseline
- daily BMP with IV diuresis
Prx A-fib/flutter.
- Recent cardioversion on 04/21
- on GUN PROFILER amiodarone
- on Toprol
- Hold Coumadin due to INT > 5
CAD with hx CABG:
-no CP
-continue ASA, statin, BB
Abnormal troponin: chronically eleavted
- suspect chronic, NICM in setting of renal and cardiac dysfunction
Ambulatory dysfunction
- multifactorial and due to advanced CHF, fluctuating volume status and marginal hypotension, severe deconditioning.
DVT Px : INR > 5
Full code per patient confirmed twice by Hospitalist and hospitalist AP
IP TLM
[2025-05-22] MEDS: KCL 40 MEQ PO (19:05)
[2025-05-22] MEDS: DESYREL 50 MG PO (21:14)
[2025-05-23] VITALS (7 sets, daily range): BP systolic 116–134; BP diastolic 55–80; O2SAT 98; BMI 24.8
[2025-05-23] MEDS: SYNTHROID 75 MCG PO (05:39)
[2025-05-23 06:45] LABS: Hematocrit 31.9 % (39.0-52.0); Hemoglobin 11.0 g/dL (13.0-18.0); Mean Corp Hgb Conc. 34.5 g/dL (33.0-37.0); Mean Corpuscular Volume 97.9 fL (80.0-94.0); Platelet Count 100 10^3/uL (130-400); Red Cell Dist. Width 16.5 % (11.5-14.5)
[2025-05-23 06:53] LABS: PT 48.7 Sec (11.4-14.6)
[2025-05-23 07:02] LABS: INR 5.43
[2025-05-23 07:03] LABS: ALT (SGPT) 46 U/L (0-50); AST (SGOT) 71 U/L (17-59); Albumin 2.5 g/dl (3.5-5.0); Alkaline Phosphatase 116 U/L (38-126); Blood Urea Nitrogen 27 mg/dl (9-20); Calcium 8.5 mg/dl (8.4-10.2); Carbon Dioxide 31 mmol/L (22-30); Chloride 95 mmol/L (98-107); Estimated Creatinine Clearance 30 ml/min; Glucose 62 mg/dl (70-99); Potassium 3.4 mmol/L (3.5-5.1); Sodium 129 mmol/L (135-145); Total Protein 4.6 g/dl (6.3-8.2); eGFR 42.22
--- NOTE | 2025-05-23 07:59 | W.PN.HOSP.TC ---
Today's Communication/Plan
-
Continue IV Lasix
Continue to monitor INR every 24 hours
Assessment / Plan
Assessment / Plan
Assessment:
This is a 85 y/o male with pmhx of CHF with reduced EF (13%) s/p AGRICULTURAL ADVISER-D, ischemic cardiomyopthaty, paroxysmal atrial fibrillation, essential hypertension, hypothyroidism, hyperlipidemia, CKD Stage 3b who presented with elevated INR of 5.8 and was
found to be in acute HFrEF exacerbation.
Plan:
Acute on Chronic HFrEF
Ischemic Cardiomyopathy
Anasarca
On Admission 20lb weight gain since 04/28, Troponin 0.036, pBNP 9980
Echo from 04/06/2025: EF of 13%
Chest Xray on 05/22: Mild CHF with small bilateral pleural effusions
Continue telemetry
Continue IV furosemide 40mg BID
Continue to monitor daily weights, I's & O's
Cardiology is following, will appreciate their insight into his case
Hyponatremia
Hypokalemia
Sodium on admission 125, increased to 129 on 05/23
Potassium on admission 3.3, anju to 3.4 on 05/23
Ordered 40 mEq KCl
Continue to monitor BMP
Will check Magnesium in AM
Paroxysmal Atrial Fibrillation
Supratherapeutic INR
INR outpatient reported at 5.8, was 5.53 on admission and decreased to 5.43 on 05/23
Continue to hold Coumadin.
Continue to check INR daily
Continue amiodarone
Once INR decreases, will reevaluate dosage of home Coumadin
Transaminitis
AST 89, ALT 52, Alk Phos 131 on admission with total Bilirubin of 2.3
No active sign of bleeding
Continue to monitor LFTs
Hypothyroidism
TSH 6.69, T4 2.72 on admission
Continue levothyroxine at home dose
Encourage follow up with Primary Care Physician
Coronary Artery Disease
Hyperlipidemia
S/p CABG
STOP Aspirin, patient is already on anticoagulation
Continue atorvastatin
Chronic Kidney Disease stage 3b
On admission creatinine at baseline 1.7, eGFR 39.26
Continue to monitor
Anticipated Discharge: 24 - 48 hours
Subjective/Interval History
-
Date of Service: May 23, 2025
Patient was resting comfortably in his room when I arrived. He was concerned because he was not sure what he wanted to eat for breakfast and could not remember what foods he likes, and could not locate his phone (Which was left at his house). He has
no acute concerns but does report that he gets short of breath with 'a lot of exercise'.
Objective Data
-
Labs:
Laboratory Results
05/23/25
06:25
WBC 5.5
Hgb 11.0 L
Hct 31.9 L
Plt Count 100 L D
PT 48.7 H
INR 5.43 H*
Sodium 129 L
Potassium 3.4 L
Chloride 95 L
Carbon Dioxide 31 H
BUN 27 H
Creatinine 1.6 H
Glucose 62 L
Calcium 8.5
Total Bilirubin 2.0 H
AST 71 H
ALT 46
Alkaline Phosphatase 116
Vital Signs:
Vital Signs
Temp Pulse Resp BP Pulse Ox
98.1 F 70 18 116/66 96
05/23/25 03:27 05/23/25 03:27 05/23/25 03:27 05/23/25 03:27 05/23/25 03:27
I&O
05/22/25 05/23/25 05/24/25
06:59 06:59 06:59
Intake Total 120 / 120
Output Total 825 / 825
Balance -705 / -705
Review of Systems
-
History Source: Patient (Limited by cognition)
Constitutional: Denies Fever or Chills
Respiratory: Reports Trouble Breathing (Only with exercise, not currently); Denies Cough
Cardiac: Denies Chest Pain
Abdomen/GI: Reports Constipated (Cannot remember last bowel movement, reports historic constipation); Denies Abdominal Pain, Nausea, Vomiting or Diarrhea
Physical Exam
-
General: Well Developed, Well Nourished, No Apparent Distress and Comfortable
HEENT: Normocephalic and Atraumatic
Respiratory: Clear to Auscultation
Cardiac: Regular Rhythm and S1/S2
Musculoskeletal: Edema, Left Upper Extrem (Localized swelling of the right forearm, nonpainful), Edema, Right Lower Extrem and Edema, Left Lower Extrem
Skin: Warm and Dry
Neuro: Awake and Alert
Psych: Calm and Confused
--- NOTE | 2025-05-23 08:17 | CON.CAR ---
Consultation
Consultation Request
Date/Time Consultation Requested: 05/22/252020
Date/Time Consultation Performed: 05/23/25, 729
Requesting Provider: Briana
Performing Provider: Dennis
Reason for Consultation: heart failure, elevated INR
Medical History
-
Chief Complaint: edema
History of Present Illness:
85 y/o male with PMH of chronic HFrEF, ICM EF 15-20%, NEUROSURGICAL NURSE PRACTITIONER-D in place, CAD with hx CABG 2015, Paroxysmal A fib on warfarin, and CKD3b is admitted with SOB, edema, elevated INR. Lasix was increased to 40mg twice daily as outpatient, but SOB, edema
continued to worsen. Also his INR was supratherapeutic. He denies chest pain, dizziness, syncope.
Past Medical History
Past Medical History: CAD, CHF (chronic HFrEF), Hypercholesterolemia, Renal Failure (CKD3b) and Valvular Disease (mild AR, moderate TR)
Past Surgical History: Cardiac (CABG)
Social History
Tobacco: Non-Smoker
Family History
Family History: Early CAD (none)
Allergies / Home Medications
Allergy/AdvReac Type Severity Reaction Status Date / Time
No Known Allergies Allergy Verified 10/19/18 11:20
�Medication �Instructions �Recorded �Confirmed �Type
atorvastatin 80 mg tablet 80 mg PO QPM High Cholesterol 12/01/17 05/22/25 History
cholecalciferol (vitamin D3) 25 1,000 unit PO DAILY@1200 Supplement 12/01/17 05/22/25 History
mcg (1,000 unit) capsule (Vitamin
D3)
acetaminophen 500 mg tablet 500 mg PO DAILY mild Pain 04/06/25 05/22/25 History
(Tylenol Extra Strength)
aspirin 81 mg tablet,delayed 81 mg PO DAILY Blood Clot 04/06/25 05/22/25 History
release Prevention/Tx
doxycycline hyclate 50 mg capsule 50 mg PO DAILY@1200 Infection 04/06/25 05/22/25 History
levothyroxine 75 mcg tablet 75 mcg PO DAILY Thyroid 04/06/25 05/22/25 History
(Synthroid)
amiodarone 200 mg tablet (Pacerone) 200 mg PO DAILY Arrhythmia #30 tabs 04/12/25 05/22/25 Rx
furosemide 40 mg tablet 40 mg PO DAILY Heart Failure 04/26/25 05/22/25 History
warfarin 1 mg tablet 2 mg PO QPM Blood Clot 04/26/25 05/22/25 History
Prevention/Tx
trazodone 50 mg tablet 50 mg PO HS 05/22/25 05/22/25 History
Review of Systems
-
History Source: Patient
All other systems: Negative unless noted
Constitutional: Weight Gain
Respiratory: Trouble Breathing
Musculoskeletal: Edema
Physical Exam
Vital Signs
Temp Pulse Resp BP Pulse Ox
98.1 F 70 18 116/66 96
05/23/25 03:27 05/23/25 03:27 05/23/25 03:27 05/23/25 03:27 05/23/25 03:27
Lab Results
05/23/25 06:25
05/23/25 06:25
Troponin I 0.036 ng/ml H* 05/22/25 16:00
Ckr-B-Qqmnudurpnk Pept 9980 pg/ml 05/22/25 16:00
Physical Exam
General: Well Developed and Well Nourished
HEENT: Normocephalic and Anicteric
Respiratory: Clear and Non Labored Respirations
Cardiac: S1/S2 (normal), Regular Rhythm, Murmur (II/ systolic at LLSB), Peripheral Edema (2+ LE edema) and JVD (elevated)
Musculoskeletal: No Clubbing, No Cyanosis and Edema (2+ LE)
Skin: Warm and Dry
Neuro: Awake and Alert
Psych: Calm
Impression / Plan
-
85 y/o male with PMH of chronic HFrEF, ICM EF 15-20%, NEUROSURGICAL NURSE PRACTITIONER-D in place, CAD with hx CABG 2015, Paroxysmal A fib on warfarin, and CKD3b is admitted with SOB, edema, elevated INR. Lasix was increased to 40mg twice daily as outpatient, but SOB, edema
continued to worsen. Also his INR was supratherapeutic.
Acute on chronic HFrEF
-severe, requiring hospitalization for IV diuretic with close monitoring of labs/tele
-he was 63kg on last hospital d/c, and now admitted at 67.5kg
-was on lasix 40mg PO bid as outpatient (increased from once daily)
-to consider torsemide 40mg daily when ready for d/c
-cont lasix 40mg IV bid
ICM: EF 13% on 04/06/2025 by TTE, SANDOVAL EF 20% 04/21/25
-mild AR, moderarate TR
-NEUROSURGICAL NURSE PRACTITIONER-D in place ([facility])
-not currently on GDMT due to hypotension and renal insufficiency
-will see if we can get some Toprol XL on board after diuresis
Paroxysmal A Fib/Flutter (suspected to be typical)/ and a slower AT, paroxysmal:
-became persistent and likely contributed to recent CHF exacerbation. Therefore, amiodarone increased and patient s/p SANDOVAL/CV 04/2025. Now maintaining SR.
-CHADS2-VASC = 4.
-continue amiodarone 200mg daily
-warfarin held for supratherapeutic INR: trend INR
CAD with hx CABG:
-recent op Lexiscan with large infarct but no ischemia
-stable, no angina
-stop ASA since on OAC
-cont statin
Abnormal troponin:
-chronic, non-ischemic myocardial injury in setting of renal and cardiac dysfunction
CKD3b
-Cr runs 1.6-1.8
-stable, trend with diuresis
Data Reviewed
-
EKG: Tracing Personally Visualized and interpreted (AV paced) and Other (Tele: AV paced)
Medical Tests (Nuc Med, Echo etc): Report Reviewed by me (SANDOVAL (04/2025) EF 20%, mild AR, mod TR)
Labs: Labs Reviewed by me
--- NOTE | 2025-05-23 08:26 | W.PN.UPDATE ---
Update Note
Progress Note Update
HPI: 85-year-old male with past medical history significant for hypertension, hypothyroidism, HFrEF (EF 13%) s/p MEDICAL RECORDS CODER-D, CAD s/p CABG, PAF on Coumadin, CKD stage 3; who presented to [facility] ED for evaluation of abnormal outpatient labs. at bedside
to assist with HPI as patient expressed he does not remember why he came to the hospital.
Patient had INR checked in the morning and resulted at 5.8. He called his PCP and cardiology office for instructions. Patient ultimately decided to come to ED for evaluation.
Patient's states that on May 18 INR was check and was 3.8 and cardiology office reduced Coumadin from 3mg daily to 2mg daily and recheck was scheduled for DOA that resulted in 5.8. He denied to any signs of bleeding. Patient presented with
anasarca per ED note and stated over past 2 days patient has had increased exertional dyspnea that required him to stop and rest.
Patient recently hospitalized 04/26/2025 - 04/28/25 for decompensated clinical status/overall deconditioning, and was discharged to rehab at [facility] where believes patient has had cognitive decline since then with significant memory loss.
A/P:
# Supratherapeutic INR
# Paroxysmal A fib/flutter
INR 5.53 on admission, cont to monitor daily
Hold MANAGER MOLECULAR Coumadin, may need to further adjust/decrease prior dose when resuming
monitor for bleeding
continue MANAGER MOLECULAR amiodarone
# anasarca 2/2 suspected acute on chronic HFrEF (EF 13%)
# s/p MEDICAL RECORDS CODER-D
On admission, Trop 0.036 (lower than prior), pBNP 9980
approximate 20 pound weight gain in last month
CXR: Mild CHF with small bilateral pleural effusions.
Admit to telemetry
Cont IV Lasix 40mg BID
Monitor daily weight
Consult Cardiology
# Hyponatremia, likely due to volume overload in acute CHF
trend BMP
# Transaminitis likely 2/2 hepatic congestion from acute CHF
Monitor LFT
# Hypokalemia
replete
# hypothyroidism
TSH 6.69, FT4 2.72
continue levothyroxine
# CAD s/p CABG
Continue aspirin and atorvastatin
# CKD stage 3A
Creat 1.6 today, at baseline
monitor BMP
Code status: full code
DVT prophylaxis: holding MANAGER MOLECULAR Coumadin, monitor daily INR
DW at bedside
total time 51 min
--- NOTE | 2025-05-23 08:34 | VNURNOTE ---
Addendum entered by Caprice Myers RN 05/23/25 14:32:
[facility] Resumption referral placed in [facility].
Original Note:
Chart reviewed. Patient is current with [facility]. Will continue to follow hospital course and DC plans.
[2025-05-23] MEDS: PACERONE 200 MG PO (08:51)
[2025-05-23] MEDS: KCL 40 MEQ PO (08:51)
[2025-05-23] MEDS: LASIX 40 MG IV ×2 (08:52→16:39)
--- NOTE | 2025-05-23 12:31 | WOUNDNOTE ---
[facility] RN note: Patient admitted with anasarca and CHF.
See H&P for complete history.
PMH: ED Past Medical History: Arrthythmia (Paroxysmal atrial fibrillation anticoagulated on warfarin), CAD and CHF
ED Past Surgical History: Cardiac (CABG x3 July 2016 at [facility] ablation for atrial fibrillation.) and Other (Hernia repair/cataract)
Wound Location and type/assessment: Patient admitted with: small Stage 3 PI on gluteal cleft, bergeron base with scant pink. Periwound with chronic dark discolored skin from prolonged sitting. Was recently at [facility]ab reports, increased
weakness and poor appetite. Groins with MASD, patient incontinent of urine when turned with assist. Patient difficult to turn, very weak, can lift legs slightly. Heels boggy and slow to ken. Legs with scattered dried small scabs.1- 2+ edema,
palpable pedal pulses.
Appetite: Poor. Encouraged protein in diet. Pressure ulcer prevention measures reviewed with and patient. states she understands, patient lying in bed with eyes closed, not receptive to teaching at this time.
Pressure redistribution devices in place: On [facility] air bed. Repositioned to R semi side lying position. Air cushion placed under heels, foams applied to protect. Asked nurse to add pillow under air cushion to offload heels.
Plan: Will order Santyl for ulcer with piece of alginate and silicone foam. Fungal powder for skin folds and perineum. Barry wraps knee high applied both legs. Will confirm orders with hospitalist and updated nurse Truman.
Updated care plan and will follow as needed.
Note to case management of equipment requested for discharge: Air mattress
Recommend follow up at wound care center upon discharge.
--- NOTE | 2025-05-23 15:00 | CM ---
Met with Pt and at chairside. LIves with in 1 story home with a basement and loft. BR on 1st floor. Has Hx of [facility]. DME: rolling walker, SPC, wheelchair, shower bars and raised toilet seats. Has Hx of SNF at [facility] recently.
does NOT want pt to return to [facility] if he needs SNF, is requesting [facility]. 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 NO hx of home O2, NO insecurities identified. Confirmed PCP, Rx, insurance,- Pt
does not have drug coverage
Pt is confused at times. states this is new since he was at [facility].
PCP: Artis Holloway
Rx: BERNADETTE/ [place]
Plan: to be determined
[2025-05-23] MEDS: LIPITOR 80 MG PO (16:39)
[2025-05-23] MEDS: DESYREL 50 MG PO (22:44)
[2025-05-23] MEDS: DESENEX/MITRAZOL/ZEASORB 1 APPLIC TOPICAL (22:44)
[2025-05-24 03:55] VITALS: BP 96/56
[2025-05-24] MEDS: SYNTHROID 75 MCG PO (05:18)
[2025-05-24 06:00] VITALS: BMI 24.0
--- NOTE | 2025-05-24 07:26 | W.PN.HOSP.TC ---
Today's Communication/Plan
-
Continue to hold Coumadin
Continue diuretics
Assessment / Plan
Assessment / Plan
Assessment:
This is a 85 y/o male with pmhx of CHF with reduced EF (13%) s/p REFRIGERATION SYSTEM INSTALLER-D, ischemic cardiomyopthaty, paroxysmal atrial fibrillation, essential hypertension, hypothyroidism, hyperlipidemia, CKD Stage 3b who presented with elevated INR of 5.8 and was
found to be in acute HFrEF exacerbation.
Plan:
Acute on Chronic HFrEF
Ischemic Cardiomyopathy
Anasarca
On Admission 20lb weight gain since 04/28, Troponin 0.036, pBNP 9980
Echo from 04/06/2025: EF of 13%
Chest Xray on 05/22: Mild CHF with small bilateral pleural effusions
Continue telemetry
Continue IV furosemide 40mg BID
Continue to monitor daily weights, I's & O's
Cardiology is following, will appreciate their insight into his case
Hyponatremia
Hypokalemia
Sodium on admission 125, increased to 129 on 05/23
Potassium on admission 3.3, anju to 3.4 on 05/23. Low again today at 3.4.
Ordered 40 mEq KCl
Continue to monitor BMP
Will check Magnesium in AM
Paroxysmal Atrial Fibrillation
Supratherapeutic INR
INR outpatient reported at 5.8, was 5.53 on admission and decreased to 5.43 on 05/23 and 5.38 on 05/24
Continue to hold Coumadin.
Continue to check INR daily
Continue amiodarone
Once INR decreases, will reevaluate dosage of home Coumadin
Transaminitis
AST 89, ALT 52, Alk Phos 131 on admission with total Bilirubin of 2.3
No active sign of bleeding
Continue to monitor LFTs
Hypothyroidism
TSH 6.69, T4 2.72 on admission
Continue levothyroxine at home dose
Encourage follow up with Primary Care Physician
Coronary Artery Disease
Hyperlipidemia
S/p CABG
STOP Aspirin, patient is already on anticoagulation
Continue atorvastatin
Chronic Kidney Disease stage 3b
On admission creatinine at baseline 1.7, eGFR 39.26
Continue to monitor
Anticipated Discharge: > 48 hours
Subjective/Interval History
-
Date of Service: May 24, 2025
Patient was resting comfortably when I arrived. He has no concerns or complaints at this time.
Objective Data
-
Labs:
Laboratory Results
05/24/25
07:10
WBC Pending
Hgb Pending
Hct Pending
Plt Count Pending
PT Pending
INR Pending
Sodium Pending
Potassium Pending
Chloride Pending
Carbon Dioxide Pending
BUN Pending
Creatinine Pending
Glucose Pending
Calcium Pending
Total Bilirubin Pending
AST Pending
ALT Pending
Alkaline Phosphatase Pending
Vital Signs:
Vital Signs
Temp Pulse Resp BP Pulse Ox
97.8 F 72 18 96/56 94
05/24/25 03:55 05/24/25 03:55 05/24/25 03:55 05/24/25 03:55 05/24/25 03:55
I&O
05/23/25 05/24/25 05/25/25
06:59 06:59 06:59
Intake Total 120 / 120 720 / 720
Output Total 825 / 825 675 / 675
Balance -705 / -705 45 / 45
Review of Systems
-
History Source: Patient
Constitutional: Denies Fever or Chills
Respiratory: Denies Trouble Breathing
Cardiac: Denies Chest Pain
Abdomen/GI: Denies Abdominal Pain, Nausea, Vomiting, Diarrhea or Constipated
Physical Exam
-
General: Well Developed, Well Nourished, No Apparent Distress and Comfortable
HEENT: Normocephalic and Atraumatic
Respiratory: Clear to Auscultation
Cardiac: Regular Rhythm and S1/S2
Musculoskeletal: Edema, Right Lower Extrem and Edema, Left Lower Extrem
Skin: Warm and Dry
Neuro: Awake, Alert and Oriented
Psych: Calm
[2025-05-24 07:28] VITALS: BP 118/68
[2025-05-24 08:13] LABS: Hematocrit 34.0 % (39.0-52.0); Hemoglobin 11.2 g/dL (13.0-18.0); Mean Corp Hgb Conc. 32.9 g/dL (33.0-37.0); Mean Corpuscular Volume 98.0 fL (80.0-94.0); Platelet Count 108 10^3/uL (130-400); Red Cell Dist. Width 17.1 % (11.5-14.5)
[2025-05-24 08:14] LABS: PT 49.0 Sec (11.4-14.6)
[2025-05-24 08:29] LABS: INR 5.38
[2025-05-24 08:36] LABS: ALT (SGPT) 48 U/L (0-50); AST (SGOT) 80 U/L (17-59); Albumin 3.0 g/dl (3.5-5.0); Alkaline Phosphatase 142 U/L (38-126); Blood Urea Nitrogen 29 mg/dl (9-20); Calcium 9.1 mg/dl (8.4-10.2); Carbon Dioxide 30 mmol/L (22-30); Chloride 94 mmol/L (98-107); Estimated Creatinine Clearance 30 ml/min; Glucose 81 mg/dl (70-99); Magnesium 1.8 mg/dl (1.6-2.3); Potassium 3.4 mmol/L (3.5-5.1); Sodium 130 mmol/L (135-145); Total Protein 5.4 g/dl (6.3-8.2); eGFR 42.22
[2025-05-24] MEDS: DESENEX/MITRAZOL/ZEASORB 1 APPLIC TOPICAL ×2 (09:03→20:00)
[2025-05-24] MEDS: KCL 40 MEQ PO (09:04)
[2025-05-24] MEDS: MAGNESIUM SULFATE 50 IV (09:04)
[2025-05-24] MEDS: LASIX IV (09:05)
[2025-05-24] MEDS: PACERONE 200 MG PO (09:06)
--- NOTE | 2025-05-24 09:13 | W.PN.UPDATE ---
Update Note
Progress Note Update
HPI: 85-year-old male with past medical history significant for hypertension, hypothyroidism, HFrEF (EF 13%) s/p RESIDENT CARE ASSOCIATE-D, CAD s/p CABG, PAF on Coumadin, CKD stage 3; who presented to [facility] ED for evaluation of abnormal outpatient labs. at bedside
to assist with HPI as patient expressed he does not remember why he came to the hospital.
Patient had INR checked in the morning and resulted at 5.8. He called his PCP and cardiology office for instructions. Patient ultimately decided to come to ED for evaluation.
Patient's states that on May 18 INR was check and was 3.8 and cardiology office reduced Coumadin from 3mg daily to 2mg daily and recheck was scheduled for DOA that resulted in 5.8. He denied to any signs of bleeding. Patient presented with
anasarca per ED note and stated over past 2 days patient has had increased exertional dyspnea that required him to stop and rest.
Patient recently hospitalized 04/26/2025 - 04/28/25 for decompensated clinical status/overall deconditioning, and was discharged to rehab at [facility] where believes patient has had cognitive decline since then with significant memory loss.
A/P:
# Supratherapeutic INR
# Paroxysmal A fib/flutter
INR remain high at 5.38 today
cont to monitor daily
Cont to hold PACKAGE DYE STAND LOADER Coumadin, may need to further adjust/decrease of prior dose when resuming
monitor for bleeding
continue PACKAGE DYE STAND LOADER amiodarone
# anasarca 2/2 suspected acute on chronic HFrEF (EF 13%)
# s/p RESIDENT CARE ASSOCIATE-D
On admission, Trop 0.036 (lower than prior), pBNP 9980
approximate 20 pound weight gain in last month
CXR: Mild CHF with small bilateral pleural effusions.
Admit to telemetry
Cont IV Lasix 40mg BID
Monitor daily weight
to consider torsemide 40mg daily when ready for d/c
Cardiology on board
# Hyponatremia, likely due to volume overload in acute CHF
trend BMP
# Transaminitis likely 2/2 hepatic congestion from acute CHF
Monitor LFT
# Hypokalemia
replete
# hypothyroidism
TSH 6.69, FT4 2.72
continue levothyroxine
# CAD s/p CABG
Per card, can stop ASA since on OAC
Continue atorvastatin
# CKD stage 3A
Creat 1.6 today, at baseline
monitor BMP
Code status: full code
DVT prophylaxis: holding PACKAGE DYE STAND LOADER Coumadin, monitor daily INR
[2025-05-24] MEDS: SANTYL OINTMENT 1 APPLIC TOPICAL (10:05)
--- NOTE | 2025-05-24 10:56 | CM ---
Reviewed chart/ Met with pt and bedside. Pt is still on IV diuretics, Will be transitioning to Eliquis. Pt states he has met his $2000 medication deductable. Will verify with his pharmacy
Plan: [facility]
[2025-05-24] MEDS: LASIX 40 MG IV ×2 (11:05→15:40)
--- NOTE | 2025-05-24 11:22 | W.PN.CD ---
Addendum entered and electronically signed by Bijan Wolf MD 05/24/25 13:23:
Patient seen and examined in collaboration with AUTHORIZATION MANAGER; agree with below.
- Volume status is slowly improving; continue Lasix 40 mg IV BID.
- Likely transition from warfarin to Eliquis once INR has improved.
- monitor and storage bin tender; will follow.
Original Note:
Today's Communication / Plan
-
-continue Lasix 40 mg IV BID, replace potassium and monitor.
-Continue to hold warfarin and trend INR. See Eliquis notes below.
Impression / Plan
-
85 y/o male with PMH of chronic HFrEF, ICM EF 15-20%, MATERIAL CONTROL ASSOCIATE-D in place, CAD with hx CABG 2015, Paroxysmal A fib on warfarin, and CKD3b is admitted with SOB, edema, elevated INR. Lasix was increased to 40mg twice daily as outpatient, but SOB, edema
continued to worsen. Also his INR was supratherapeutic.
Acute on chronic HFrEF:
-severe, requiring hospitalization. Continue IV lasix, which requires intensive monitoring.
-he was 63kg on last hospital d/c, and admitted at 67.5kg. Currently 65.5 kg.
-was on Lasix 40mg PO bid as outpatient (increased from once daily)
-to consider torsemide 40mg daily when ready for d/c
-hypokalemia noted and being replaced
ICM: EF 13% on 04/06/2025 by TTE, SANDOVAL EF 20% 04/21/25
-mild AR, moderate TR
-MATERIAL CONTROL ASSOCIATE-D in place ([facility])
-not currently on GDMT due to hypotension and renal insufficiency
-will see if we can get some Toprol XL on board after diuresis
Paroxysmal A Fib/Flutter (suspected to be typical)/ and a slower AT, paroxysmal:
-became persistent and likely contributed to recent CHF exacerbation. Therefore, amiodarone increased and patient s/p SANDOVAL/CV 04/2025. Now maintaining SR.
-CHADS2-VASC = 4.
-continue amiodarone 200mg daily
-warfarin held for supratherapeutic INR: trend INR. Patient/family would like to consider transition to Eliquis (when INR appropriate for this) and are looking into pricing with CM to see if affordable.
CAD with hx CABG:
-recent op Lexiscan with large infarct but no ischemia
-stable, no angina
-ASA stopped since on OAC
-cont statin
Abnormal troponin:
-chronic, non-ischemic myocardial injury in setting of renal and cardiac dysfunction
CKD3b
-Cr runs 1.6-1.8
-stable, trend with diuresis
Physical Exam
Vital Signs/Labs
Vital Signs
Temp Pulse Resp BP Pulse Ox
98.3 F 64 18 119/64 97
05/24/25 07:28 05/24/25 11:05 05/24/25 07:28 05/24/25 11:05 05/24/25 08:30
05/23/25 05/24/25 05/25/25
06:59 06:59 06:59
Actual Weight 67.585 kg 65.453 kg
05/24/25 07:10
05/24/25 07:10
PT 49.0 Sec (11.4-14.6) H 05/24/25 07:10
INR 5.38 H* 05/24/25 07:10
APTT 68.9 Sec (23.4-35.0) H 05/22/25 16:00
Magnesium 1.8 mg/dl (1.6-2.3) 05/24/25 07:10
Free T4 2.72 ng/dl (0.78-2.19) H 05/22/25 16:00
05/22/25
16:00
Ihf-Y-Ajkxppucuwu Pept 9980
LAB Results
05/22/25
16:00
Troponin I 0.036 H*
Physical Exam
Constitutional: No acute distress
EENT: Anicteric
Cardiovascular: Rhythm & rate is regular, Pedal edema present and Systolic murmur present
Respiratory: Crackles Present (b/l bases)
Neuro/Psych: AO x 3
Data Reviewed
-
Date of Service: May 24, 2025
EKG: Other (SR)
Labs: Labs Reviewed by me
[2025-05-24 11:31] VITALS: BMI 24.0
[2025-05-24 11:38] VITALS: BP 119/64
--- NOTE | 2025-05-24 13:18 | PN.CDI ---
CDI
- -
CDI:
Physician Documentation Request
Admit Date: 05/22/25 19:23
Dear Doctor,
Please review the following and provide your response in the progress notes.
Clinical Indicators:
- Wound note indicates Stage 3 gluteal cleft pressure injury, POA
Physician documentation of the type and location of wounds is required for compliant documentation. Based on the above clinical findings and your assessment, please provide the following in your progress note:
1. Location of the ulcer/wound, including laterality.
2. Type (etiology) of ulcer/wound:
- Diabetic ulcer
- Arterial (ischemic) ulcer
- Traumatic wound
- Venous stasis ulcer
- Pressure (decubitus) ulcer
- Other
Use of terms such as suspected, likely, concern for, or probable (associated with a specific diagnosis that is being evaluated, monitored, or treated as if it exists) are acceptable and can be coded in the inpatient setting, when documented at the
time of discharge.
Thank you,
Manuel Treviño RN
CDI Specialist
Please use your independent medical judgment in providing your response.
*Source: National Pressure Ulcer Advisory Panel (NPUAP)
[2025-05-24 15:01] VITALS: BP 125/64
[2025-05-24] MEDS: LIPITOR 80 MG PO (17:04)
[2025-05-24 19:21] VITALS: BP 111/67
[2025-05-24] MEDS: DESYREL 50 MG PO (21:42)
[2025-05-24 23:18] VITALS: BP 120/63
[2025-05-25] VITALS (8 sets, daily range): BP systolic 91–127; BP diastolic 56–75; BMI 24.2
[2025-05-25] MEDS: SYNTHROID 75 MCG PO (06:29)
--- NOTE | 2025-05-25 07:13 | W.PN.HOSP.TC ---
Today's Communication/Plan
-
Continue to hold Coumadin with plan to switch to Eliquis
Continue diuresis
Continue to monitor kidney function
Recheck Mag in AM
Replete Potassium as necessary
Assessment / Plan
Assessment / Plan
Assessment:
This is a 85 y/o male with pmhx of CHF with reduced EF (13%) s/p INTEGRATION SOFTWARE ENGINEER-D, ischemic cardiomyopthaty, paroxysmal atrial fibrillation, essential hypertension, hypothyroidism, hyperlipidemia, CKD Stage 3b who presented with elevated INR of 5.8 and was
found to be in acute HFrEF exacerbation.
Plan:
Acute on Chronic HFrEF
Ischemic Cardiomyopathy
Anasarca
On Admission 20lb weight gain since 04/28, Troponin 0.036, pBNP 9980
Echo from 04/06/2025: EF of 13%
Chest Xray on 05/22: Mild CHF with small bilateral pleural effusions
Continue telemetry
Continue IV furosemide 40mg BID
Continue to monitor daily weights, I's & O's
Cardiology is following, will appreciate their insight into his case
Hyponatremia
Hypokalemia
Sodium on admission 125, increased to 129 on 05/23, 133 on 05/25
Potassium on admission 3.3, anju to 3.4 on 05/23 and 05/24, 3.5 on 05/25
Ordered 40 mEq KCl
Will check Magnesium in the morning
Continue to monitor BMP
Paroxysmal Atrial Fibrillation
Supratherapeutic INR
INR outpatient reported at 5.8, was 5.53 on admission and decreased to 5.43 on 05/23, 5.38 on 05/24, and 4.58 on 05/25
Continue to hold Coumadin.
Continue to check INR daily
Continue amiodarone
Once INR decreases to 2, plan to switch to Eliquis 2.5mg BID (Age + Creatinine)
Transaminitis
AST 89, ALT 52, Alk Phos 131 on admission with total Bilirubin of 2.3
No active sign of bleeding
Continue to monitor LFTs
Hypothyroidism
TSH 6.69, T4 2.72 on admission
Continue levothyroxine at home dose
Encourage follow up with Primary Care Physician
Coronary Artery Disease
Hyperlipidemia
S/p CABG
STOP Aspirin, patient is already on anticoagulation
Continue atorvastatin
Chronic Kidney Disease stage 3b
On admission creatinine at baseline 1.7, eGFR 39.26
Continue to monitor
Stage 3 Gluteal Cleft Pressure Injury
Per Wound Notes on 05/23
Present on admission
Continue wound care
Anticipated Discharge: 24 - 48 hours
Subjective/Interval History
-
Date of Service: May 25, 2025
Patient was resting comfortably when I arrived. He appeared more confused than yesterday, stating that his promised that she would come to visit him but hasn't thus far (She has been here each day of his admission very reliably for several
hours). He had no acute complaints or concerns at this time.
Objective Data
-
Labs:
Laboratory Results
05/25/25
06:00
WBC Pending
Hgb Pending
Hct Pending
Plt Count Pending
PT Pending
INR Pending
Sodium Pending
Potassium Pending
Chloride Pending
Carbon Dioxide Pending
BUN Pending
Creatinine Pending
Glucose Pending
Calcium Pending
Vital Signs:
Vital Signs
Temp Pulse Resp BP Pulse Ox
98.4 F 67 19 91/56 96
05/25/25 03:47 05/25/25 03:47 05/25/25 03:47 05/25/25 03:47 05/25/25 03:47
I&O
05/24/25 05/25/25 05/26/25
06:59 06:59 06:59
Intake Total 720 / 720 1070 / 1070
Output Total 675 / 675 250 / 250
Balance 45 / 45 820 / 820
Review of Systems
-
History Source: Patient
Constitutional: Denies Fever or Chills
Respiratory: Denies Cough
Cardiac: Denies Chest Pain or Palpitations
Abdomen/GI: Reports Constipated; Denies Abdominal Pain, Nausea, Vomiting or Diarrhea
Neuro: Denies Dizzy
Physical Exam
-
General: Well Developed, Well Nourished, No Apparent Distress and Comfortable
HEENT: Normocephalic and Atraumatic
Respiratory: Clear to Auscultation
Cardiac: Regular Rhythm and S1/S2
Musculoskeletal: Edema, Right Lower Extrem and Edema, Left Lower Extrem
Skin: Warm and Dry
Neuro: Awake and Alert
Psych: Calm and Confused
--- NOTE | 2025-05-25 07:45 | W.PN.CD ---
Today's Communication / Plan
-
continue IV lasix and monitor weights and labs. Reviewed nursing pacing diuresing respiratory status improving although weight appeared to plateau from yesterday till today. Will assess response to diuretics today. Patient patient may need
further increase in IV Lasix.
monitor INR and when less then 2 consider transition to Eliquis 2.5mg BID ( age >80 and Cr >1.5)
continue to assess ability to add GDMT after diuresis ( limited by BP and CKD)
Impression / Plan
-
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 Lasix was increased to 40mg twice daily as outpatient, but SOB, edema
continued to worsen. Also his INR was supratherapeutic.
Acute on chronic HFrEF:
-severe, requiring hospitalization. Continue IV lasix, which requires intensive monitoring.
-he was 63kg on last hospital d/c, and admitted at 67.5kg. Currently 65.5 kg.
-was on Lasix 40mg PO bid as outpatient (increased from once daily)
-to consider torsemide 40mg daily when ready for d/c
ICM: EF 13% on 04/06/2025 by TTE, SANDOVAL EF 20% 04/21/25
-mild AR, moderate TR
-WEB PRODUCTION MANAGER-D in place ([facility])
-not currently on GDMT due to hypotension and renal insufficiency
-will see if we can get some Toprol XL on board after diuresis
Paroxysmal A Fib/Flutter (suspected to be typical)/ and a slower AT, paroxysmal:
-became persistent and likely contributed to recent CHF exacerbation. Therefore, amiodarone increased and patient s/p SANDOVAL/CV 04/2025. Now maintaining SR.
-CHADS2-VASC = 4.
-continue amiodarone 200mg daily
-warfarin held for supratherapeutic INR: trend INR. Patient/family would like to consider transition to Eliquis (when INR appropriate for this) and are looking into pricing with to see if affordable. Creatinine 1.6. Eliquis dose would be 2.5mg BID
CAD with hx CABG:
-recent op Lexiscan with large infarct but no ischemia
-stable, no angina
-ASA stopped since on OAC
-cont statin
Abnormal troponin:
-chronic, non-ischemic myocardial injury in setting of renal and cardiac dysfunction
CKD3b
-Cr runs 1.6-1.8
-stable, trend with diuresis
Physical Exam
Vital Signs/Labs
Vital Signs
Temp Pulse Resp BP Pulse Ox
97.7 F 60 16 110/62 96
05/25/25 07:20 05/25/25 07:20 05/25/25 07:20 05/25/25 07:20 05/25/25 07:20
05/24/25 05/25/25 05/26/25
06:59 06:59 06:59
Actual Weight 65.453 kg 65.884 kg
PT 49.0 Sec (11.4-14.6) H 05/24/25 07:10
INR 5.38 H* 05/24/25 07:10
APTT 68.9 Sec (23.4-35.0) H 05/22/25 16:00
Magnesium 1.8 mg/dl (1.6-2.3) 05/24/25 07:10
Free T4 2.72 ng/dl (0.78-2.19) H 05/22/25 16:00
05/22/25
16:00
[id number]-[id number] Pept 9980
LAB Results
05/22/25
16:00
Troponin I 0.036 H*
Physical Exam
Constitutional: No acute distress
Cardiovascular: Rhythm & rate is regular
Respiratory: Wheeze Absent and Rhonchi Absent
GI: Soft and Normal bowel sounds
Neuro/Psych: Alert and Oriented
Other: Other (Bilateral extremity edema extending up into the thighs.)
Data Reviewed
-
Date of Service: May 25, 2025
Medical Decision Making: Reviewed Test Results
Echo: Report Reviewed by me
Medical Tests (PFT, Pathology etc): Report Reviewed by me
Labs: Labs Reviewed by me
[2025-05-25 08:08] LABS: Hematocrit 31.6 % (39.0-52.0); Hemoglobin 10.7 g/dL (13.0-18.0); Mean Corp Hgb Conc. 33.9 g/dL (33.0-37.0); Mean Corpuscular Volume 96.0 fL (80.0-94.0); Platelet Count 90 10^3/uL (130-400); Red Cell Dist. Width 17.3 % (11.5-14.5)
[2025-05-25 08:13] LABS: INR 4.58; PT 43.4 Sec (11.4-14.6)
--- NOTE | 2025-05-25 08:19 | W.PN.UPDATE ---
Addendum entered and electronically signed by Halima Farfan MD 05/25/25 14:34:
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 Patient also requires positioning of the body in ways
not feasible with an ordinary bed to alleviate pain and needs frequent changes in body position
Original Note:
Update Note
Progress Note Update
I saw the patient and evaluated the patient with the residents.
HPI: 85-year-old male with past medical history significant for hypertension, hypothyroidism, HFrEF (EF 13%) s/p ASSOCIATE CHEMIST-D, CAD s/p CABG, PAF on Coumadin, CKD stage 3; who presented to [facility] ED for evaluation of abnormal outpatient labs. at bedside
to assist with HPI as patient expressed he does not remember why he came to the hospital.
Patient had INR checked in the morning and resulted at 5.8. He called his PCP and cardiology office for instructions. Patient ultimately decided to come to ED for evaluation.
Patient's states that on May 18 INR was check and was 3.8 and cardiology office reduced Coumadin from 3mg daily to 2mg daily and recheck was scheduled for DOA that resulted in 5.8. He denied to any signs of bleeding. Patient presented with
anasarca per ED note and stated over past 2 days patient has had increased exertional dyspnea that required him to stop and rest.
Patient recently hospitalized 04/26/2025 - 04/28/25 for decompensated clinical status/overall deconditioning, and was discharged to rehab at [facility] where believes patient has had cognitive decline since then with significant memory loss.
A/P:
# Supratherapeutic INR
# Paroxysmal A fib/flutter
INR improved slightly to 4.58 today,
Cont to monitor INR daily
Cont to hold SURGICAL ASSISTANT CERTIFIED Coumadin, card deciding to switch to Eliquis when INR improves
monitor for bleeding
continue SURGICAL ASSISTANT CERTIFIED amiodarone
# anasarca 2/2 acute on chronic HFrEF (EF 13%)
# s/p ASSOCIATE CHEMIST-D
On admission, Trop 0.036 (lower than prior), pBNP 9980
approximate 20 pound weight gain in last month. Admission CXR showed Mild CHF with small bilateral pleural effusions.
Admit to telemetry
Cont IV Lasix 40 mg BID
Monitor daily weight
Card considering torsemide 40mg daily when ready for d/c
Cardiology on board
# Hyponatremia, likely due to volume overload in acute CHF
trend BMP
# Transaminitis likely 2/2 hepatic congestion from acute CHF
Monitor LFT
# Hypokalemia
replete
# hypothyroidism
TSH 6.69, FT4 2.72
continue levothyroxine
# CAD s/p CABG
Per card, can stop ASA since on OAC
Continue atorvastatin
# CKD stage 3A
monitor BMP
Code status: full code
DVT prophylaxis: holding SURGICAL ASSISTANT CERTIFIED Coumadin, monitor daily INR
[2025-05-25 08:41] LABS: Blood Urea Nitrogen 32 mg/dl (9-20); Calcium 8.7 mg/dl (8.4-10.2); Carbon Dioxide 31 mmol/L (22-30); Chloride 98 mmol/L (98-107); Estimated Creatinine Clearance 30 ml/min; Glucose 98 mg/dl (70-99); Potassium 3.5 mmol/L (3.5-5.1); Sodium 133 mmol/L (135-145); eGFR 42.22
[2025-05-25] MEDS: SANTYL OINTMENT 1 APPLIC TOPICAL (08:58)
[2025-05-25] MEDS: DESENEX/MITRAZOL/ZEASORB 1 APPLIC TOPICAL ×2 (09:02→20:33)
[2025-05-25] MEDS: PACERONE 200 MG PO (09:02)
[2025-05-25] MEDS: LASIX 40 MG IV ×2 (09:04→16:03)
[2025-05-25] MEDS: KCL 40 MEQ PO (09:30)
--- NOTE | 2025-05-25 14:38 | VNURNOTE ---
Addendum entered by Caprice Myers RN 05/29/25 09:48:
Rec'ed update from [place] at [facility]. They will deliver hospital bed this afternoon. They will contact to arrange delivery today.
Original Note:
Rec'ed update that spouse is requesting a hospital bed for pt. Spoke with spouse Rosette and confirmed. Explained that DME co will contact her to arrange payment (if copays) and delivery. She is aware it will take a few days for processing/delivery.
She requested delivery Thursday. She stated several times she cannot accept the bed tomorrow/Thursday. Instructed her to make room for it and that someone would need to be home to accept the delivery. Spouse verbalized understanding and confirmed
resumption with -[facility].
Hospital Bed
Faxed clinicals, RX to [facility].
Faxed to [phone].
E[place] Rep ph # [phone]
--- NOTE | 2025-05-25 15:49 | CM ---
Met with pt and at [facility]. Pt remains on IV lasix with elevated PT level. requesting hospital bed. INformed that [facility] will assist her obtain this bed.
Cardiology is rec that pt be placed on Eliqis 2.5 BID at discharge. stated the patient has reached his deductible of $2000 fo 2024. CM will verify this with pharmacy
Plan: DC home with [facility]
[2025-05-25] MEDS: LIPITOR 80 MG PO (16:57)
[2025-05-25] MEDS: DESYREL 50 MG PO (22:07)
[2025-05-26] VITALS (7 sets, daily range): BP systolic 97–128; BP diastolic 62–72; BMI 23.7
[2025-05-26] MEDS: SYNTHROID 75 MCG PO (05:36)
--- NOTE | 2025-05-26 07:24 | W.PN.HOSP.TC ---
Today's Communication/Plan
-
Trend INR
Follow weights
Palliative Care referral, will see outpatient after discharge
Assessment / Plan
Assessment / Plan
Assessment:
This is a 85 y/o male with pmhx of CHF with reduced EF (13%) s/p MOLDING FITTER-D, ischemic cardiomyopthaty, paroxysmal atrial fibrillation, essential hypertension, hypothyroidism, hyperlipidemia, CKD Stage 3b who presented with elevated INR of 5.8 and was
found to be in acute HFrEF exacerbation.
Plan:
Acute on Chronic HFrEF
Ischemic Cardiomyopathy
Anasarca
On Admission 20lb weight gain since 04/28, Troponin 0.036, pBNP 9980
Echo from 04/06/2025: EF of 13%
Chest Xray on 05/22: Mild CHF with small bilateral pleural effusions
Continue telemetry
Continue IV furosemide 40mg BID (Creatinine increased to 1.8 today)
Continue to monitor daily weights, I's & O's
Cardiology is following, will appreciate their insight into his case
Hyponatremia
Hypokalemia
Sodium on admission 125, increased to 129 on 05/23, 133 on 05/25
Potassium on admission 3.3, anju to 3.4 on 05/23 and 05/24, 3.5 on 05/25, 3.8 on 05/26
Magnesium 2.1
Continue to monitor BMP
Paroxysmal Atrial Fibrillation
Supratherapeutic INR
INR outpatient reported at 5.8, was 5.53 on admission and decreased to 5.43 on 05/23, 5.38 on 05/24, and 4.58 on 05/25, 4.06 today
Continue to hold Coumadin.
Continue to check INR daily
Continue amiodarone
Once INR decreases to 2, plan to switch to Eliquis 2.5mg BID (Age + Creatinine)
Transaminitis
AST 89, ALT 52, Alk Phos 131 on admission with total Bilirubin of 2.3
No active sign of bleeding
Continue to monitor LFTs
Hypothyroidism
TSH 6.69, T4 2.72 on admission
Continue levothyroxine at home dose
Encourage follow up with Primary Care Physician
Coronary Artery Disease
Hyperlipidemia
S/p CABG
STOP Aspirin, patient is already on anticoagulation
Continue atorvastatin
Chronic Kidney Disease stage 3b
On admission creatinine at baseline 1.7, eGFR 39.26
Continue to monitor
Stage 3 Gluteal Cleft Pressure Injury
Per Wound Notes on 05/23
Present on admission
Continue wound care
Dispo: Spoke to patient and daughter today. Goals at this time are to go home with visiting nurses. Family and patient are inquiring about outpatient palliative care as well, and are thinking that if he were to get very sick again, he would likely
not wish to return to the hospital. Plan to arrange for outpatient palliative care follow up after discharge.
Anticipated Discharge: > 48 hours
Subjective/Interval History
-
Date of Service: May 26, 2025
Patient was resting in his chair with daughter at his bedside when I arrived. Currently he is free of chest pain, shortness of breath or wheezing, but had experienced some overnight wheezing when lying flat which was new for him. He has no
discomfort in his left arm at the anscara which he states has been there for some time. His daughter had not noticed it previously. By her report, this is his third hospitalization since April with one requiring 6 days of ICU-level care.
Objective Data
-
Labs:
Laboratory Results
05/26/25
06:00
WBC Pending
Hgb Pending
Hct Pending
Plt Count Pending
PT Pending
INR Pending
Sodium Pending
Potassium Pending
Chloride Pending
Carbon Dioxide Pending
BUN Pending
Creatinine Pending
Glucose Pending
Calcium Pending
Total Bilirubin Pending
AST Pending
ALT Pending
Alkaline Phosphatase Pending
Vital Signs:
Vital Signs
Temp Pulse Resp BP Pulse Ox
97.8 F 63 20 108/62 94
05/26/25 03:05 05/26/25 03:05 05/26/25 03:05 05/26/25 03:05 05/26/25 03:05
I&O
05/25/25 05/26/25 05/27/25
06:59 06:59 06:59
Intake Total 1310 / 1310 960 / 960
Output Total 250 / 250 200 / 200
Balance 1060 / 1060 760 / 760
Review of Systems
-
History Source: Patient
Constitutional: Denies Fever or Chills
Respiratory: Reports Wheezing (Overnight, none currently); Denies Cough or Trouble Breathing
Cardiac: Denies Chest Pain or Palpitations
Musculoskeletal: Reports Edema; Denies Joint Pain or Muscle Pain
Physical Exam
-
General: Well Developed, Well Nourished, No Apparent Distress and Comfortable
HEENT: Normocephalic and Atraumatic
Respiratory: Clear to Auscultation
Cardiac: Regular Rhythm and S1/S2
Musculoskeletal: Edema, Left Upper Extrem (Pitting edema of the left arm extending from the elbow to the wrist without erythema or pain), Edema, Right Lower Extrem and Edema, Left Lower Extrem
Skin: Warm and Dry
Neuro: Awake, Alert and Oriented
Psych: Calm
[2025-05-26] MEDS: SANTYL OINTMENT 1 APPLIC TOPICAL (08:49)
[2025-05-26] MEDS: DESENEX/MITRAZOL/ZEASORB 1 APPLIC TOPICAL ×2 (08:49→20:08)
[2025-05-26] MEDS: LASIX 40 MG IV ×2 (08:58→15:11)
[2025-05-26] MEDS: PACERONE 200 MG PO (08:58)
[2025-05-26 09:03] LABS: INR 4.06; PT 39.0 Sec (11.4-14.6)
[2025-05-26 09:04] LABS: Hematocrit 31.9 % (39.0-52.0); Hemoglobin 10.7 g/dL (13.0-18.0); Mean Corp Hgb Conc. 33.5 g/dL (33.0-37.0); Mean Corpuscular Volume 97.3 fL (80.0-94.0); Platelet Count 86 10^3/uL (130-400); Red Cell Dist. Width 17.5 % (11.5-14.5)
[2025-05-26 09:26] LABS: ALT (SGPT) 46 U/L (0-50); AST (SGOT) 74 U/L (17-59); Albumin 2.8 g/dl (3.5-5.0); Alkaline Phosphatase 124 U/L (38-126); Blood Urea Nitrogen 33 mg/dl (9-20); Calcium 8.7 mg/dl (8.4-10.2); Carbon Dioxide 31 mmol/L (22-30); Chloride 98 mmol/L (98-107); Estimated Creatinine Clearance 27 ml/min; Glucose 94 mg/dl (70-99); Magnesium 2.1 mg/dl (1.6-2.3); Potassium 3.8 mmol/L (3.5-5.1); Sodium 134 mmol/L (135-145); Total Protein 5.2 g/dl (6.3-8.2); eGFR 36.66
--- NOTE | 2025-05-26 09:46 | W.PN.UPDATE ---
Update Note
Progress Note Update
I saw the patient and evaluated the patient with the residents.
HPI: 85-year-old male with past medical history significant for hypertension, hypothyroidism, HFrEF (EF 13%) s/p NAILHEAD PUNCHER-D, CAD s/p CABG, PAF on Coumadin, CKD stage 3; who presented to [facility] ED for evaluation of abnormal outpatient labs. at bedside
to assist with HPI as patient expressed he does not remember why he came to the hospital.
Patient had INR checked in the morning and resulted at 5.8. He called his PCP and cardiology office for instructions. Patient ultimately decided to come to ED for evaluation.
Patient's states that on May 18 INR was check and was 3.8 and cardiology office reduced Coumadin from 3mg daily to 2mg daily and recheck was scheduled for DOA that resulted in 5.8. He denied to any signs of bleeding. Patient presented with
anasarca per ED note and stated over past 2 days patient has had increased exertional dyspnea that required him to stop and rest.
Patient recently hospitalized 04/26/2025 - 04/28/25 for decompensated clinical status/overall deconditioning, and was discharged to rehab at [facility] where believes patient has had cognitive decline since then with significant memory loss.
A/P:
# Supratherapeutic INR
# Paroxysmal A fib/flutter
INR improved to 4.06 today,
Cont to monitor INR daily
Cont to hold MUD TANK OPERATOR Coumadin, card deciding to switch to Eliquis when INR improves
monitor for bleeding, none thus far
continue MUD TANK OPERATOR amiodarone
# anasarca 2/2 acute on chronic HFrEF (EF 13%)
# s/p NAILHEAD PUNCHER-D
approximate 20 pound weight gain in last month. Admission CXR showed Mild CHF with small bilateral pleural effusions.
Cont IV Lasix 40 mg BID
Monitor daily weight and SCr
Cardiology on board
# Hyponatremia, likely due to volume overload in acute CHF
trend BMP
# Transaminitis likely 2/2 hepatic congestion from acute CHF
Monitor LFT
# Hypokalemia
repleted
# hypothyroidism
TSH 6.69, FT4 2.72
continue levothyroxine
# CAD s/p CABG
Per card, can stop ASA since on OAC
Continue atorvastatin
# CKD stage 3A
monitor BMP
Code status: full code
DVT prophylaxis: holding MUD TANK OPERATOR Coumadin, monitor daily INR
Dispo: family would like to take the pt back and start palliative care outpt
DW Card
--- NOTE | 2025-05-26 09:59 | W.PN.CD ---
Today's Communication / Plan
-
Patient down 3 pounds overnight. Still with significant edema respiratory status appears stable at rest but still with shortness of breath with low-level exertion.
Continue to monitor renal function closely creatinine up to 1.8
Family has requested palliative care consultation
Impression / Plan
-
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 Lasix was increased to 40mg twice daily as outpatient, but SOB, edema
continued to worsen. Also his INR was supratherapeutic.
Acute on chronic HFrEF:
-severe, requiring hospitalization. Continue IV lasix, which requires intensive monitoring.
-he was 63kg on last hospital d/c, and admitted at 67.5kg. Currently 65.5 kg. Now down to 64 kg but still has significant edema on exam. Creatinine now up to 1.8 will need to monitor closely. Patient down 1 kg overnight. If further rising
creatinine may need to back off on diuretics and transition to oral.
-was on Lasix 40mg PO bid as outpatient (increased from once daily)
-to consider torsemide 40mg daily when ready for d/c
-Family at bedside. Patient with 3 recent hospitalization. Consult for palliative care requested by family.
ICM: EF 13% on 04/06/2025 by TTE, SANDOVAL EF 20% 04/21/25
-mild AR, moderate TR
-OFFICE CASHIER-D in place ([facility])
-not currently on GDMT due to hypotension and renal insufficiency
- Previous notes raise possibility of try to get Toprol on board after diuresis if BP will allow.
Paroxysmal A Fib/Flutter (suspected to be typical)/ and a slower AT, paroxysmal:
-became persistent and likely contributed to recent CHF exacerbation. Therefore, amiodarone increased and patient s/p SANDOVAL/CV 04/2025. Now maintaining SR.
-CHADS2-VASC = 4.
-continue amiodarone 200mg daily
-warfarin held for supratherapeutic INR: trend INR. Patient/family would like to consider transition to Eliquis (when INR appropriate for this) and are looking into pricing with CM to see if affordable. Creatinine 1.6. Eliquis dose would be 2.5mg BID
CAD with hx CABG:
-recent op Lexiscan with large infarct but no ischemia
-stable, no angina
-ASA stopped since on OAC
-cont statin
Abnormal troponin:
-chronic, non-ischemic myocardial injury in setting of renal and cardiac dysfunction
CKD3b
-Cr runs 1.6-1.8
-stable, trend with diuresis
Physical Exam
Vital Signs/Labs
Vital Signs
Temp Pulse Resp BP Pulse Ox
98 F 69 15 106/64 96
05/26/25 07:00 05/26/25 08:58 05/26/25 07:00 05/26/25 08:58 05/26/25 07:00
05/25/25 05/26/25 05/27/25
06:59 06:59 06:59
Actual Weight 65.884 kg 64.546 kg
05/26/25 07:35
05/26/25 07:35
PT 39.0 Sec (11.4-14.6) H 05/26/25 07:35
INR 4.06 05/26/25 07:35
APTT 68.9 Sec (23.4-35.0) H 05/22/25 16:00
Magnesium 2.1 mg/dl (1.6-2.3) 05/26/25 07:35
Free T4 2.72 ng/dl (0.78-2.19) H 05/22/25 16:00
05/22/25
16:00
Dqx-[id number]-Jyvmtwzkxvh Pept 9980
Physical Exam
Constitutional: No acute distress
Cardiovascular: Rhythm & rate is regular
Respiratory: Wheeze Absent and Rhonchi Absent
GI: Soft and Non tender
Neuro/Psych: Alert
Other: Other
Barry wraps on legs bilaterally. Bilateral edema up to the thighs
Data Reviewed
-
Date of Service: May 26, 2025
Medical Decision Making: Reviewed Test Results
Echo: Report Reviewed by me
X-Ray/CT/US/MRI/NUC/PET: Report Reviewed by me
Medical Tests (PFT, Pathology etc): Report Reviewed by me
--- NOTE | 2025-05-26 10:18 | CM ---
Addendum entered by Roxanna Rivas 05/26/25 12:38:
Palliative information given to and dtr. will me know if she is ready to put in a consult for [facility] today. VN made aware
Provided drug prescription care to Admissions Dept.
Addendum entered by Roxanna Rivas 05/26/25 11:50:
CM verified Eliqis has $0 copay for 30 and 90 days. Family asking for information on palliative care. Anticipate pt being here through the weekend.IMM given
Original Note:
Reviewed chart. Met with pt chairside. Continues on IV lasix. PT (coag) remains elevated. Confirmed with RX that Eliqis 2.5 mg BID has a $0 copay for 30days and 10 days. Have asked pt to have bring in his drug insurance policy; none on file.
VN to assist with obtaining a hospital bed for home use.
Plan: Home with [facility].
[2025-05-26] MEDS: LIPITOR 80 MG PO (17:12)
[2025-05-26] MEDS: DESYREL 50 MG PO (22:00)
[2025-05-27 03:41] VITALS: BP 116/74
[2025-05-27] MEDS: SYNTHROID 75 MCG PO (05:10)
[2025-05-27 06:00] VITALS: BMI 23.5
[2025-05-27 07:19] VITALS: BP 120/67
[2025-05-27 08:15] LABS: Hematocrit 32.6 % (39.0-52.0); Hemoglobin 10.8 g/dL (13.0-18.0); Mean Corp Hgb Conc. 33.1 g/dL (33.0-37.0); Mean Corpuscular Volume 98.2 fL (80.0-94.0); Platelet Count 85 10^3/uL (130-400); Red Cell Dist. Width 17.6 % (11.5-14.5)
[2025-05-27 08:36] LABS: Blood Urea Nitrogen 44 mg/dl (9-20); Calcium 8.7 mg/dl (8.4-10.2); Carbon Dioxide 32 mmol/L (22-30); Chloride 99 mmol/L (98-107); Estimated Creatinine Clearance 27 ml/min; Glucose 90 mg/dl (70-99); Potassium 3.5 mmol/L (3.5-5.1); Sodium 136 mmol/L (135-145); eGFR 36.66
[2025-05-27 09:04] LABS: INR 3.79; PT 37.1 Sec (11.4-14.6)
[2025-05-27] MEDS: PACERONE 200 MG PO (09:15)
[2025-05-27] MEDS: SANTYL OINTMENT 1 APPLIC TOPICAL (09:15)
[2025-05-27] MEDS: LASIX 40 MG IV (09:16)
[2025-05-27] MEDS: DESENEX/MITRAZOL/ZEASORB 1 APPLIC TOPICAL ×2 (09:18→22:47)
--- NOTE | 2025-05-27 10:04 | W.PN.HOSP.TC ---
Addendum entered and electronically signed by Mare Hinds MD 05/27/25 15:38:
D/W Cards
D/W Family at bed side
Addendum entered and electronically signed by Mare Hinds MD 05/27/25 15:26:
Seen and examined the patient. Agree with the plan formulated by the resident. See changes in my documentation
85-year-old man admitted with supratherapeutic INR as outpatient. He also had exertional dyspnea patient was hospitalized here from 04/26/2025 to 04/28/2025 for CHF and was discharged to [facility].
Chest x-ray-mild CHF
CVS: S1-S2 normal
Chest: CTA B/L
Abdomen: Soft, NT / Bowel sounds present
Extremities: mild edema
# Supratherapeutic INR secondary to Coumadin
INR improved
Planning to change to Eliquis when INR less than 2
# Paroxysmal atrial fibrillation/flutter-continue amiodarone-switch Coumadin to Eliquis when able
History of ablation
# Acute on chronic HFrEF
EF 13%
History of TYPE BAR AND SEGMENT ASSEMBLER-D
Continue diuresis Daily intake output charting and weights
Weight improved from 67.6 kg to 63.95 kg today
Cardiology following
# Coronary disease with history of CABG-aspirin stopped. Continue statin
# Hyponatremia-secondary to fluid overload
# Transaminitis-likely secondary hepatic congestion from heart failure - Better
# Hypokalemia-replace as needed with diuresis
# Rosacea-continue doxycycline
# Anemia-check iron studies
# Thrombocytopenia-appears to be chronic. Outpatient hematology evaluation
# Hypothyroidism-continue levothyroxine
# Hyperlipidemia-hold statin with elevated LFTs
# CKD stage III-watch creatinine with diuresis
# Insomnia-continue trazodone
# Hypoalbuminemia
Part of this note was created using voice recognition system. Occasional wrong word or��sound alike� substitutions may have inadvertently occurred due to the inherent limitations of voice recognition software. If noted kindly bring it to my
attention for correction.
Original Note:
Today's Communication/Plan
-
INR 3.79, continue to monitor
SOB at exertion, appreciate cardiology recs
Potassium supplemented
Assessment / Plan
Assessment / Plan
Assessment:
This is a 85 y/o male with pmhx of CHF with reduced EF (13%) s/p TYPE BAR AND SEGMENT ASSEMBLER-D, ischemic cardiomyopthaty, paroxysmal atrial fibrillation, essential hypertension, hypothyroidism, hyperlipidemia, CKD Stage 3b who presented with elevated INR of 5.8 and was
found to be in acute HFrEF exacerbation.
Plan:
Acute on Chronic HFrEF
Ischemic Cardiomyopathy
Anasarca
On Admission 20lb weight gain since 04/28, Troponin 0.036, pBNP 9980
Echo from 04/06/2025: EF of 13%
Chest Xray on 05/22: Mild CHF with small bilateral pleural effusions
Continue telemetry
Continue IV furosemide 40mg BID (Creatinine stable at 1.8 from yesterday).
Continue to monitor daily weights, I's & O's
Cardiology is following, will appreciate their insight into his case
Hyponatremia, resolved
Hypokalemia
Sodium on admission 125, increased to 129 on 05/23, 133 on 05/25, 136 on 05/27
Potassium on admission 3.3, anju to 3.4 on 05/23 and 05/24, 3.5 on 05/25, 3.8 on 05/26, 3.5 on 05/27-repleted
Magnesium 2.1
Continue to monitor BMP
Paroxysmal Atrial Fibrillation
Supratherapeutic INR
INR outpatient reported at 5.8, was 5.53 on admission and decreased to 5.43 on 05/23, 5.38 on 05/24, and 4.58 on 05/25, 4.06 05/26, 3.79 05/27
Continue to hold Coumadin.
Continue to check INR daily
Continue amiodarone
Once INR decreases to 2, plan to switch to Eliquis 2.5mg BID (Age + Creatinine)
Transaminitis
AST 89, ALT 52, Alk Phos 131 on admission with total Bilirubin of 2.3
No active sign of bleeding
Continue to monitor LFTs
Hypothyroidism
TSH 6.69, T4 2.72 on admission
Continue levothyroxine at home dose
Encourage follow up with Primary Care Physician
Coronary Artery Disease
Hyperlipidemia
S/p CABG
STOP Aspirin, patient is already on anticoagulation
Continue atorvastatin
Chronic Kidney Disease stage 3b
On admission creatinine at baseline 1.7, eGFR 39.26
Continue to monitor
Stage 3 Gluteal Cleft Pressure Injury
Per Wound Notes on 05/23
Present on admission
Continue wound care
Dispo: Spoke to patient and daughter today. Goals at this time are to go home with visiting nurses. Family and patient are inquiring about outpatient palliative care as well, and are thinking that if he were to get very sick again, he would likely
not wish to return to the hospital. Plan to arrange for outpatient palliative care follow up after discharge.
Anticipated Discharge: > 48 hours
Subjective/Interval History
-
Date of Service: May 27, 2025
-This morning, he is sitting up in chair with at bedside without acute complaints. He states that he feels SOB with walking but none with sitting. Otherwise he has no acute complaints.
Objective Data
-
Labs:
Laboratory Results
05/27/25 05/27/25
06:36 08:43
WBC 8.7
Hgb 10.8 L
Hct 32.6 L
Plt Count 85 L
PT 37.1 H
INR 3.79
Sodium 136
Potassium 3.5
Chloride 99
Carbon Dioxide 32 H
BUN 44 H
Creatinine 1.8 H
Glucose 90
Calcium 8.7
Vital Signs:
Vital Signs
Temp Pulse Resp BP Pulse Ox
97.6 F 63 16 120/67 96
05/27/25 07:19 05/27/25 07:19 05/27/25 07:19 05/27/25 07:19 05/27/25 07:19
I&O
05/26/25 05/27/25 05/28/25
06:59 06:59 06:59
Intake Total 960 / 960 470 / 470
Output Total 200 / 200 125 / 125
Balance 760 / 760 345 / 345
Physical Exam
-
General: Well Developed, Well Nourished, No Apparent Distress and Comfortable
HEENT: Normocephalic, Atraumatic and Moist Mucous Membranes
Respiratory: Clear to Auscultation
Cardiac: Regular Rhythm
GI: Soft and Nontender
Skin: Warm, Dry and Rash
Neuro: AO x 3
Psych: Calm
[2025-05-27] MEDS: KCL 40 MEQ PO (10:30)
[2025-05-27 11:00] VITALS: BP 107/62
[2025-05-27 13:00] LABS: Ferritin 406.0 ng/ml (17.9-464.0)
[2025-05-27 13:14] LABS: Vitamin B12 913 pg/ml (239-931)
[2025-05-27 13:51] LABS: Iron 31 ug/dl (49-181)
[2025-05-27 13:53] LABS: Total Iron Binding Capacity 228 ug/dl (261-462)
--- NOTE | 2025-05-27 15:40 | W.PN.CD ---
Today's Communication / Plan
-
increase lasix to 80mg IV bid
Impression / Plan
-
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 Lasix was increased to 40mg twice daily as outpatient, but SOB, edema
continued to worsen. Also his INR was supratherapeutic.
Acute on chronic HFrEF:
-severe, requiring hospitalization. Continue IV lasix, which requires intensive monitoring.
-he was 63kg on last hospital d/c, and admitted at 67.5kg.
-was on Lasix 40mg PO bid as outpatient (increased from once daily)
-to consider torsemide 40mg daily when ready for d/c
-increase lasix to 80mg IV bid
ICM: EF 13% on 04/06/2025 by TTE, SANDOVAL EF 20% 04/21/25
-mild AR, moderate TR
-WARP DYEING VAT TENDER-D in place ([facility])
-not currently on GDMT due to hypotension and renal insufficiency
- Previous notes raise possibility of try to get Toprol on board after diuresis if BP will allow.
Paroxysmal A Fib/Flutter (suspected to be typical)/ and a slower AT, paroxysmal:
-became persistent and likely contributed to recent CHF exacerbation. Therefore, amiodarone increased and patient s/p SANDOVAL/CV 04/2025. Now maintaining SR.
-CHADS2-VASC = 4.
-continue amiodarone 200mg daily
-warfarin held for supratherapeutic INR: trend INR. Patient/family would like to transition to Eliquis (when INR appropriate for this). Creatinine 1.6. Eliquis dose would be 2.5mg BID
CAD with hx CABG:
-recent op Lexiscan with large infarct but no ischemia
-stable, no angina
-ASA stopped since on OAC
-cont statin
Abnormal troponin:
-chronic, non-ischemic myocardial injury in setting of renal and cardiac dysfunction
CKD3b
-Cr runs 1.6-1.8
-stable, trend with diuresis
Physical Exam
Vital Signs/Labs
Vital Signs
Temp Pulse Resp BP Pulse Ox
97.6 F 65 16 107/62 97
05/27/25 07:19 05/27/25 11:00 05/27/25 11:00 05/27/25 11:00 05/27/25 11:00
05/26/25 05/27/25 05/28/25
06:59 06:59 06:59
Actual Weight 64.546 kg 63.957 kg
05/27/25 06:36
05/27/25 06:36
PT 37.1 Sec (11.4-14.6) H 05/27/25 08:43
INR 3.79 05/27/25 08:43
APTT 68.9 Sec (23.4-35.0) H 05/22/25 16:00
Magnesium 2.1 mg/dl (1.6-2.3) 05/26/25 07:35
Free T4 2.72 ng/dl (0.78-2.19) H 05/22/25 16:00
05/22/25
16:00
Rig-G-Jnyofybcijc Pept 9980
Physical Exam
Constitutional: No acute distress
EENT: Moist mucous membranes
Cardiovascular: Rhythm & rate is regular, Pedal edema present, JVD present and Systolic murmur present
Respiratory: Respiratory effort normal and Lungs clear to auscul.
Neuro/Psych: AO x 3
Data Reviewed
-
Date of Service: May 27, 2025
EKG: Other (Tele: AsVp 60s)
Labs: Labs Reviewed by me
[2025-05-27 15:45] VITALS: BP 110/65
[2025-05-27] MEDS: LASIX 80 MG IV (15:48)
[2025-05-27] MEDS: LIPITOR 80 MG PO (18:16)
[2025-05-27 19:59] VITALS: BP 98/56
[2025-05-27] MEDS: DESYREL 50 MG PO (22:47)
[2025-05-27 23:23] VITALS: BP 118/64
[2025-05-28 03:23] VITALS: BP 105/74
[2025-05-28] MEDS: SYNTHROID 75 MCG PO (05:40)
[2025-05-28 06:00] VITALS: BMI 23.8
[2025-05-28 07:04] LABS: INR 4.65; PT 43.3 Sec (11.4-14.6)
[2025-05-28 07:14] LABS: Hematocrit 31.7 % (39.0-52.0); Hemoglobin 10.4 g/dL (13.0-18.0); Mean Corp Hgb Conc. 32.8 g/dL (33.0-37.0); Mean Corpuscular Volume 100.6 fL (80.0-94.0); Platelet Count 91 10^3/uL (130-400); Red Cell Dist. Width 18.1 % (11.5-14.5)
[2025-05-28 07:21] VITALS: BP 109/91
[2025-05-28 07:25] LABS: Blood Urea Nitrogen 50 mg/dl (9-20); Calcium 8.6 mg/dl (8.4-10.2); Carbon Dioxide 31 mmol/L (22-30); Chloride 101 mmol/L (98-107); Estimated Creatinine Clearance 27 ml/min; Glucose 110 mg/dl (70-99); Sodium 136 mmol/L (135-145); eGFR 36.66
[2025-05-28 07:30] LABS: Potassium 3.6 mmol/L (3.5-5.1)
[2025-05-28] MEDS: DESENEX/MITRAZOL/ZEASORB 1 APPLIC TOPICAL ×2 (07:37→20:21)
[2025-05-28] MEDS: SANTYL OINTMENT 1 APPLIC TOPICAL (07:37)
[2025-05-28] MEDS: LASIX 80 MG IV ×2 (08:16→16:04)
[2025-05-28] MEDS: PACERONE 200 MG PO (08:16)
--- NOTE | 2025-05-28 10:55 | W.PN.CD ---
Today's Communication / Plan
-
continue lasix 80mg IV bid
give Vit K 2.5mg x1
Impression / Plan
-
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 Lasix was increased to 40mg twice daily as outpatient, but SOB, edema
continued to worsen. Also his INR was supratherapeutic.
Acute on chronic HFrEF:
-severe, requiring hospitalization. Continue IV lasix, which requires intensive monitoring.
-he was 63kg on last hospital d/c, and admitted at 67.5kg.
-was on Lasix 40mg PO bid as outpatient (increased from once daily)
-to consider torsemide 40mg daily when ready for d/c, hopefully tomorrow
-continue lasix 80mg IV bid
Supratherapeutic INR
-trending up instead of down
-suspect nutritional deficiency contributing
-give Vit K 2.5mg x1
ICM: EF 13% on 04/06/2025 by TTE, SANDOVAL EF 20% 04/21/25
-mild AR, moderate TR
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
-not currently on GDMT due to hypotension and renal insufficiency
- Previous notes raise possibility of try to get Toprol on board after diuresis if BP will allow.
Paroxysmal A Fib/Flutter (suspected to be typical)/ and a slower AT, paroxysmal:
-became persistent and likely contributed to recent CHF exacerbation. Therefore, amiodarone increased and patient s/p SANDOVAL/CV 04/2025. Now maintaining SR.
-CHADS2-VASC = 4.
-continue amiodarone 200mg daily
-warfarin held for supratherapeutic INR: trend INR. Patient/family would like to transition to Eliquis (when INR appropriate for this). Creatinine >1.5. Eliquis dose would be 2.5mg BID. To start once INR under 2.
CAD with hx CABG:
-recent op Lexiscan with large infarct but no ischemia
-stable, no angina
-ASA stopped since on OAC
-cont statin
Abnormal troponin:
-chronic, non-ischemic myocardial injury in setting of renal and cardiac dysfunction
CKD3b
-Cr runs 1.6-1.8
-stable, trend with diuresis
Physical Exam
Vital Signs/Labs
Vital Signs
Temp Pulse Resp BP Pulse Ox
98 F 64 16 110/57 94
05/28/25 07:21 05/28/25 08:16 05/28/25 07:21 05/28/25 08:16 05/28/25 07:21
05/27/25 05/28/25 05/29/25
06:59 06:59 06:59
Actual Weight 63.957 kg 65.005 kg
05/28/25 06:39
05/28/25 06:39
PT 43.3 Sec (11.4-14.6) H 05/28/25 06:39
INR 4.65 05/28/25 06:39
APTT 68.9 Sec (23.4-35.0) H 05/22/25 16:00
Magnesium 2.1 mg/dl (1.6-2.3) 05/26/25 07:35
Free T4 2.62 ng/dl (0.78-2.19) H 05/28/25 06:39
05/22/25
16:00
Iea-C-Sygaugmjvup Pept 9980
Physical Exam
Constitutional: No acute distress and Comfortable
EENT: Moist mucous membranes
Cardiovascular: Rhythm & rate is regular, Pedal edema present, JVD present and Systolic murmur present
Respiratory: Respiratory effort normal and Lungs clear to auscul.
Neuro/Psych: AO x 3
Data Reviewed
-
Date of Service: May 28, 2025
EKG: Other (Tele: AsVp 60s)
Labs: Labs Reviewed by me
--- NOTE | 2025-05-28 11:23 | W.PN.HOSP.TC ---
Addendum entered and electronically signed by Mare Hinds MD 05/28/25 14:33:
Seen and examined the patient. Agree with the plan formulated by the resident. See changes in my documentation
85-year-old man admitted with supratherapeutic INR as outpatient. He also had exertional dyspnea patient was hospitalized here from 04/26/2025 to 04/28/2025 for CHF and was discharged to [facility].
Chest x-ray-mild CHF
CVS: S1-S2 normal
Chest: CTA B/L
Abdomen: Soft, NT / Bowel sounds present
Extremities: mild edema
# Supratherapeutic INR secondary to Coumadin
INR up, 2.5 mg Vit K given ( Likely hepatic congestion)
Planning to change to Eliquis when INR less than 2
# Paroxysmal atrial fibrillation/flutter-continue amiodarone-switch Coumadin to Eliquis when able
History of ablation
# Acute on chronic HFrEF
EF 13%
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
Continue diuresis Daily intake output charting and weights
Weight improved from 67.6 kg to 65 kg today
Cardiology following
# Coronary disease with history of CABG-aspirin stopped. Continue statin
# Hyponatremia-secondary to fluid overload
# Transaminitis-likely secondary hepatic congestion from heart failure - Better
# Hypokalemia-replace as needed with diuresis
# Rosacea-continue doxycycline
# Anemia-Mild IDA_ add PO iron
# Thrombocytopenia-appears to be chronic. Outpatient hematology evaluation
# Hypothyroidism-continue levothyroxine
# Hyperlipidemia- statin
# CKD stage III-watch creatinine with diuresis
# Insomnia-continue trazodone
# Hypoalbuminemia
D/W Family at bed side
D/W Cardiology
Part of this note was created using voice recognition system. Occasional wrong word or��sound alike� substitutions may have inadvertently occurred due to the inherent limitations of voice recognition software. If noted kindly bring it to my
attention for correction.
Original Note:
Today's Communication/Plan
-
Follow-up free T3
Follow-up INR
Assessment / Plan
Assessment / Plan
Assessment:
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
found to be in acute HFrEF exacerbation.
Plan:
Acute on Chronic HFrEF
Ischemic Cardiomyopathy
Anasarca
On Admission 20lb weight gain since 04/28, Troponin 0.036, pBNP 9980
Echo from 04/06/2025: EF of 13%
Chest Xray on 05/22: Mild CHF with small bilateral pleural effusions
Continue telemetry
Continue IV furosemide 40mg BID (Creatinine stable at 1.8).
Continue to monitor daily weights, I's & O's
Cardiology is following, will appreciate their insight into his case
Hyponatremia, resolved
Hypokalemia
Sodium on admission 125, increased to 129 on 05/23, 133 on 05/25, stable at one 36/7
Potassium on admission 3.3, anju to 3.4 on 05/23 and 05/24, 3.5 on 05/25, 3.8 on 05/26, 3.5 on 05/27, 3.6 on 05/28
Magnesium 2.1
Continue to monitor BMP
Paroxysmal Atrial Fibrillation
Supratherapeutic INR
INR outpatient reported at 5.8, was 5.53 on admission and decreased to 5.43 on 05/23, 5.38 on 05/24, and 4.58 on 05/25, 4.06 05/26, 3.79 05/27, 4.65 05/28; follow-up repeat
Continue to hold Coumadin.
Continue to check INR daily
Continue amiodarone
Once INR decreases to 2, plan to switch to Eliquis 2.5mg BID (Age + Creatinine)
Transaminitis
AST 89, ALT 52, Alk Phos 131 on admission with total Bilirubin of 2.3
No active sign of bleeding
Continue to monitor LFTs
Hypothyroidism
TSH 6.69, T4 2.72 on admission: TSH 5.5, T4 2.62 05/28; follow-up free T3 and repeat TSH/free T4 outpatient in 4 to 6 weeks
Continue levothyroxine at home dose
Encourage follow up with Primary Care Physician
Coronary Artery Disease
Hyperlipidemia
S/p CABG
STOP Aspirin, patient is already on anticoagulation
Continue atorvastatin
Chronic Kidney Disease stage 3b
On admission creatinine at baseline 1.7, eGFR 39.26
Continue to monitor
Stage 3 Gluteal Cleft Pressure Injury
Per Wound Notes on 05/23
Present on admission
Continue wound care
Dispo: Spoke to patient and daughter. Goals at this time are to go home with visiting nurses. Family and patient are inquiring about outpatient palliative care as well, and are thinking that if he were to get very sick again, he would likely not
wish to return to the hospital. Plan to arrange for outpatient palliative care follow up after discharge.
Anticipated Discharge: 24 - 48 hours
Subjective/Interval History
-
Date of Service: May 28, 2025
-This morning, he is laying comfortably in bed chatting with daughter at bedside. He still endorses ongoing shortness of breath with exertion. No other complaints.
Objective Data
-
Labs:
Laboratory Results
05/28/25 05/28/25
06:39 11:06
WBC 8.9
Hgb 10.4 L
Hct 31.7 L
Plt Count 91 L
PT 43.3 H Pending
INR 4.65 Pending
Sodium 136
Potassium 3.6
Chloride 101
Carbon Dioxide 31 H
BUN 50 H
Creatinine 1.8 H
Glucose 110 H
Calcium 8.6
Vital Signs:
Vital Signs
Temp Pulse Resp BP Pulse Ox
98 F 64 16 110/57 94
05/28/25 07:21 05/28/25 08:16 05/28/25 07:21 05/28/25 08:16 05/28/25 07:21
I&O
05/27/25 05/28/25 05/29/25
06:59 06:59 06:59
Intake Total 470 / 470 480 / 480 240 / 240
Output Total 125 / 125 500 / 500
Balance 345 / 345 -20 / -20 240 / 240
Physical Exam
-
General: Well Developed, Well Nourished and No Apparent Distress
HEENT: Normocephalic
Respiratory: Clear to Auscultation
Cardiac: Regular Rhythm
GI: Soft, Nontender and Nondistended
Musculoskeletal: No Clubbing, No Cyanosis and No Edema
Skin: Warm
Neuro: AO x 3
Psych: Calm
[2025-05-28 11:34] LABS: INR 4.36; PT 41.2 Sec (11.4-14.6)
[2025-05-28 11:55] LABS: Free T3 3.15 pg/ml (2.77-5.27)
[2025-05-28] MEDS: VIBRAMYCIN 50 MG PO (12:20)
[2025-05-28] MEDS: MEPHYTON 2.5 MG PO (12:21)
[2025-05-28] MEDS: VITAMIN D3 (cholecalciferol) 25 MCG PO (12:21)
[2025-05-28 13:06] VITALS: BP 110/61
[2025-05-28 15:20] VITALS: BP 124/70
[2025-05-28] MEDS: FEOSOL 325 MG PO (16:04)
[2025-05-28] MEDS: LIPITOR 80 MG PO (17:48)
[2025-05-28 19:28] VITALS: BP 95/57
[2025-05-28] MEDS: DESYREL 50 MG PO (22:25)
[2025-05-28 23:33] VITALS: BP 100/63
[2025-05-29 03:07] VITALS: BP 108/55
[2025-05-29] MEDS: SYNTHROID 75 MCG PO (05:00)
[2025-05-29 05:08] VITALS: BMI 23.9
--- NOTE | 2025-05-29 07:37 | W.PN.CD ---
Today's Communication / Plan
-
transition to Torsemide 40mg po daily with added pm if needed for weight gain
INR check on Thursday
home with palliative care
will arrange chf follow up
Impression / Plan
-
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 Lasix was increased to 40mg twice daily as outpatient, but SOB, edema
continued to worsen. Also his INR was supratherapeutic.
Acute on chronic HFrEF:
-severe, requiring hospitalization. Continue IV lasix, which requires intensive monitoring.
-he was 63kg on last hospital d/c, and admitted at 67.5kg.
-was on Lasix 40mg PO bid as outpatient (increased from once daily
-continue lasix 80mg IV bid--> will transition to Torsemide 40mg daily with added dose as needed for weight gain as op
-family requesting dischage and palliative care with consideration of hospice after up coming visit with [facility] HF specialist
Supratherapeutic INR
-trending up instead of down
-suspect nutritional deficiency contributing
-give Vit K 2.5mg x1
ICM: EF 13% on 04/06/2025 by TTE, SANDOVAL EF 20% 04/21/25
-mild AR, moderate TR
-ONION TOPPER-D in place ([facility])
-not currently on GDMT due to hypotension and renal insufficiency
-will hold off for now
- Previous notes raise possibility of try to get Toprol on board after diuresis if BP will allow.
Paroxysmal A Fib/Flutter (suspected to be typical)/ and a slower AT, paroxysmal:
-became persistent and likely contributed to recent CHF exacerbation. Therefore, amiodarone increased and patient s/p SANDOVAL/CV 04/2025. Now maintaining SR.
-CHADS2-VASC = 4.
-continue amiodarone 200mg daily
-warfarin held for supratherapeutic INR: trend INR. Patient/family would like to transition to Eliquis (when INR appropriate for this). Creatinine >1.5. Eliquis dose would be 2.5mg BID. To start once INR under 2. Will need an INR check on Thursday,
I will have my office assist.
CAD with hx CABG:
-recent op Lexiscan with large infarct but no ischemia
-stable, no angina
-ASA stopped since on OAC
-cont statin
Abnormal troponin:
-chronic, non-ischemic myocardial injury in setting of renal and cardiac dysfunction
CKD3b
-Cr runs 1.6-1.8
-stable, trend with diuresis
Discussion with patient's daughters about his prognosis. Discussed 2 sequential hospitalizations and inability to tolerate GDMT all poor prognostic signs. He would be a candidate for hospice, but not quite ready yet.
Physical Exam
Vital Signs/Labs
Vital Signs
Temp Pulse Resp BP Pulse Ox
97.6 F 71 20 108/55 93
05/29/25 03:07 05/29/25 03:07 05/29/25 03:07 05/29/25 03:07 05/29/25 03:07
05/28/25 05/29/25 05/30/25
06:59 06:59 06:59
Actual Weight 143 lb 5 oz 143 lb 6 oz
PT 41.2 Sec (11.4-14.6) H 05/28/25 11:06
INR 4.36 05/28/25 11:06
APTT 68.9 Sec (23.4-35.0) H 05/22/25 16:00
Magnesium 2.1 mg/dl (1.6-2.3) 05/26/25 07:35
Free T4 2.62 ng/dl (0.78-2.19) H 05/28/25 06:39
05/22/25
16:00
Fve-A-Nirjijbiooa Pept 9980
Physical Exam
Constitutional: No acute distress
Cardiovascular: JVD pressure is normal, Systolic murmur absent, Diastolic murmur absent, Pedal edema present (trace in legs and arms), Systolic murmur present and Diastolic murmur present
Respiratory: Respiratory effort normal, Lungs clear to auscul., Wheeze Absent, Crackles Absent and Rhonchi Absent
Neuro/Psych: AO x 3
Data Reviewed
-
Date of Service: May 29, 2025
EKG: Other (tele apvp)
[2025-05-29 07:45] VITALS: BP 111/66
[2025-05-29] MEDS: LASIX IV (08:23)
[2025-05-29] MEDS: SANTYL OINTMENT 1 APPLIC TOPICAL (08:24)
[2025-05-29] MEDS: FEOSOL 325 MG PO (08:25)
[2025-05-29] MEDS: PACERONE 200 MG PO (08:25)
[2025-05-29] MEDS: DESENEX/MITRAZOL/ZEASORB 1 APPLIC TOPICAL (08:26)
[2025-05-29 08:32] LABS: Hematocrit 33.0 % (39.0-52.0); Hemoglobin 10.4 g/dL (13.0-18.0); Mean Corp Hgb Conc. 31.5 g/dL (33.0-37.0); Mean Corpuscular Volume 102.2 fL (80.0-94.0); Platelet Count 100 10^3/uL (130-400); Red Cell Dist. Width 18.0 % (11.5-14.5)
[2025-05-29] MEDS: LASIX 80 MG IV (08:38)
[2025-05-29 08:43] LABS: INR 2.22; PT 24.7 Sec (11.4-14.6)
[2025-05-29 09:09] LABS: Blood Urea Nitrogen 56 mg/dl (9-20); Calcium 8.8 mg/dl (8.4-10.2); Carbon Dioxide 31 mmol/L (22-30); Chloride 101 mmol/L (98-107); Estimated Creatinine Clearance 24 ml/min; Glucose 92 mg/dl (70-99); Potassium 3.8 mmol/L (3.5-5.1); Sodium 134 mmol/L (135-145); eGFR 32.30
--- NOTE | 2025-05-29 09:50 | W.PN.HOSP.TC ---
Addendum entered and electronically signed by Mare Hinds MD 05/29/25 15:11:
Seen and examined the patient. Agree with the plan formulated by the resident. See changes in my documentation
85-year-old man admitted with supratherapeutic INR as outpatient. He also had exertional dyspnea patient was hospitalized here from 04/26/2025 to 04/28/2025 for CHF and was discharged to [facility].
Chest x-ray-mild CHF
CVS: S1-S2 normal
Chest: CTA B/L
Abdomen: Soft, NT / Bowel sounds present
Extremities: mild edema bilateral
# Supratherapeutic INR secondary to Coumadin
INR up, 2.5 mg Vit K given ( Likely hepatic congestion)
Planning to change to Eliquis when INR less than 2 INR was 2.2 today
Visiting nurse will draw lab work at home probably Thursday or Thursday. Family was made aware that they need to talk to cardiology before starting Eliquis
With this creatinine clearance and age dose would be 2.5 mg twice daily
Lower extremities elevation as well as Barry bandage wrapping were discussed with the patient and family
# Paroxysmal atrial fibrillation/flutter-continue amiodarone-switch Coumadin to Eliquis when able
History of ablation
# Acute on chronic HFrEF
EF 13%
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
Continue diuresis Daily intake output charting and weights
Weight improved from 67.6 kg to 65 kg today
Cardiology following
# Coronary disease with history of CABG-aspirin stopped. Continue statin
# Hyponatremia-secondary to fluid overload
# Transaminitis-likely secondary hepatic congestion from heart failure - Better
# Hypokalemia-replace as needed with diuresis
# Rosacea-continue doxycycline
# Anemia-continue p.o. iron
# Thrombocytopenia-appears to be chronic. Outpatient hematology evaluation, but pt is going on palliative care
# Hypothyroidism-continue levothyroxine
# Hyperlipidemia- statin
# CKD stage III-slightly elevated creatinine secondary to diuresis. Repeat BMP as outpatient on Thursday
# Insomnia-continue trazodone
# Hypoalbuminemia
D/W Family at bed side
Discussed with case management at bedside and separately
D/W Cardiology multiple times today
Family is adamant that they want to take the patient home today. Discussed about creatinine, INR. They want palliative care services at home. Patient's prognosis is not good given his cardiomyopathy and he would also be a good candidate for
Hospice.
Labs to be drawn as outpatient. Visiting nurse may be able to draw it either tomorrow or Thursday depending upon their schedule. Family to hold Eliquis until after INR drops below 2
More than 30 minutes spent in discharge including
Final examination of the patient
Summarizing hospital stay
Instructions for continuing care to all relevant caregivers
Preparation of discharge records, prescriptions, and referral forms
Part of this note was created using voice recognition system. Occasional wrong word or��sound alike� substitutions may have inadvertently occurred due to the inherent limitations of voice recognition software. If noted kindly bring it to my
attention for correction.
Original Note:
Today's Communication/Plan
-
Plan for discharge with outpatient INR prescription
Prescription for BMP
Palliative care and VN consults
Assessment / Plan
Assessment / Plan
Assessment:
This is a 85 y/o male with pmhx of CHF with reduced EF (13%) s/p DUCT LAYER HELPER-D, ischemic cardiomyopthaty, paroxysmal atrial fibrillation, essential hypertension, hypothyroidism, hyperlipidemia, CKD Stage 3b who presented with elevated INR of 5.8 and was
found to be in acute HFrEF exacerbation.
Plan:
Acute on Chronic HFrEF
Ischemic Cardiomyopathy
Anasarca
On Admission 20lb weight gain since 04/28, 63kg on last hospital d/c, 67 kg on admission currently 65 kg, troponin 0.036, pBNP 9980
Echo from 04/06/2025: EF of 13%, SANDOVAL EF 20% 04/21/25
Chest Xray on 05/22: Mild CHF with small bilateral pleural effusions
Continue telemetry
Continue IV furosemide 80 mg BID
Plan to transition to 40 mg torsemide at discharge
Continue to monitor daily weights, I's & O's
Cardiology is following plan for outpatient follow-up
Outpatient BMP
Chronic Kidney Disease stage 3b
On admission creatinine at baseline 1.6-1.8, eGFR 39.26
Creatinine 2.0, elevated in the setting of diuretic use
Continue to monitor
Outpatient BMP
Hyponatremia, resolved
Hypokalemia
Sodium on admission 125, 134 05/29
Potassium on admission 3.3, 3.8 on 05/29
Magnesium 2.1
Continue to monitor BMP
Paroxysmal Atrial Fibrillation
Supratherapeutic INR
Status post vitamin K 1 mg
INR outpatient reported at 5.8, was 5.53 on admission 2.2 05/29; follow-up repeat
CHADS2-VASC = 4.
Continue to hold Coumadin.
Continue to check INR daily
Continue amiodarone
Once INR decreases to 2, plan to switch to Eliquis 2.5mg BID per cardiology (Age + Creatinine)
Transaminitis
AST 89, ALT 52, Alk Phos 131 on admission with total Bilirubin of 2.3
No active sign of bleeding
Hypothyroidism
TSH 6.69, T4 2.72 on admission: TSH 5.5, T4 2.62 05/28; follow-up free T3 and repeat TSH/free T4 outpatient in 4 to 6 weeks
Continue levothyroxine at home dose
follow up with Primary Care Physician
Coronary Artery Disease
Hyperlipidemia
S/p CABG
STOP Aspirin, patient is already on anticoagulation
Continue atorvastatin
Stage 3 Gluteal Cleft Pressure Injury
Per Wound Notes on 05/23
Present on admission
Continue wound care
Dispo: Goals at this time are to go home with visiting nurses. Family and patient are inquiring about outpatient palliative care as well, and are thinking that if he were to get very sick again, he would likely not wish to return to the hospital.
Plan to arrange for outpatient palliative care follow up after discharge.
Anticipated Discharge: Within 24 hours
Subjective/Interval History
-
Patient seen at bedside with family. He reports doing all right, still has shortness of breath with activity. However denies fevers chills cough nausea vomiting chest pain. Family asking for him to go home. Date of Service: May 29, 2025
Objective Data
-
Labs:
Laboratory Results
05/29/25
08:10
WBC 9.2
Hgb 10.4 L
Hct 33.0 L
Plt Count 100 L
PT 24.7 H
INR 2.22 D
Sodium 134 L
Potassium 3.8
Chloride 101
Carbon Dioxide 31 H
BUN 56 H
Creatinine 2.0 H
Glucose 92
Calcium 8.8
Vital Signs:
Vital Signs
Temp Pulse Resp BP Pulse Ox
98.1 F 68 18 95/54 98
05/29/25 07:45 05/29/25 08:38 05/29/25 07:45 05/29/25 08:38 05/29/25 07:45
I&O
05/28/25 05/29/25 05/30/25
06:59 06:59 06:59
Intake Total 480 / 480 960 / 960
Output Total 500 / 500 250 / 250
Balance -20 / -20 710 / 710
Review of Systems
-
History Source: Patient and Family
Constitutional: Reports Fatigue; Denies Fever
EENT: Reports No Symptoms Reported; Denies Sore Throat or Runny Nose
Respiratory: Reports Trouble Breathing; Denies Cough
Cardiac: Reports No Symptoms; Denies Chest Pain or Palpitations
Abdomen/GI: Reports No Symptoms; Denies Abdominal Pain, Nausea, Vomiting or Diarrhea
Skin: Denies Itching or Rash
Neuro: Denies Headache
Physical Exam
-
General: Well Developed and No Apparent Distress; Negative Respiratory Distress
HEENT: Normocephalic and Atraumatic
Respiratory: Crackles, Non Labored Respirations and Decreased Breath Sounds
Cardiac: Regular Rhythm, S1/S2, Murmur and JVD
GI: Soft, Nontender, Nondistended and Normal Bowel Sounds
Musculoskeletal: No Clubbing, Edema, Right Upper Extrem, Edema, Left Upper Extrem, Edema, Right Lower Extrem and Edema, Left Lower Extrem
Skin: Warm and Dry
Neuro: Awake and Alert
--- NOTE | 2025-05-29 10:27 | CM ---
Addendum entered by Roxanna Rivas 05/29/25 12:50:
IMM given and placed on chart. Working with [facility] and hospitalist to have labs drawn either tomorrow or Thursday. Resident will call plant tender to see when labs can be drawn. Pt is discharged
Addendum entered by Roxanna Rivas 05/29/25 11:51:
Pt will need a script at discharge for bloodwork to be drawn. Pt is going home with VN who will draw labs
Addendum entered by Roxanna Rivas 05/29/25 11:35:
30 day free trial of Eliqis coupon given to
Addendum entered by Roxanna Rivas 05/29/25 11:11:
[facility] accepted patient and will call family tomorrow. Family made aware
Original Note:
Spoke to and 2 Dtrs.They asked for CM to send a referral to [facility] -done
Pt is to be discharge today and will travel to home by car with .
Plan: Home with VN and palliative care.
[2025-05-29 10:32] VITALS: BP 100/57; BP 109/59; PULSE 65; O2SAT 96
[2025-05-29 11:20] VITALS: BP 100/50
[2025-05-29] MEDS: VIBRAMYCIN 50 MG PO (11:57)
[2025-05-29] MEDS: VITAMIN D3 (cholecalciferol) 25 MCG PO (11:57)
[2025-05-29 15:00] VITALS: BP 114/68
--- NOTE | 2025-05-29 15:27 | W.DCSUMMARY ---
Discharge Summary
Discharge Data
Date of Admission: 05/22/25
Date of Discharge: 05/29/25
-
Pending Results: No
Hospital Course
Discharging Physician :
Dr. Hinds
Dr. Eric
Disposition : Home
Primary care physician : Pool Holloway
Principal Discharge diagnosis :
Acute on chronic heart failure exacerbation
Anasarca
Chronic Discharge diagnosis :
hypertension
hypothyroidism
CAD s/p CABG
paroxysmal atrial fibrillation
CKD stage 3A
Hx prostate cancer s/p radiation
Hospital Course :
Patient is a 85-year-old male with past medical history significant for hypertension, hypothyroidism, HFrEF s/p DIE FORGER-D, CAD s/p CABG, paroxysmal A-fib on Coumadin and CKD stage 3a who presented to [facility] ED for evaluation of abnormal out patient labs.
Patient on the morning of 05/22 had INR checked and resulted at 5.8, call to primary care and cardiology office for instructions. Patient ultimately decided to come to ED for evaluation. Patients states that on May 18 INR was check and was
3.8 and cardiology office reduced Coumadin from 3mg daily to 2mg daily and recheck was scheduled for today that resulted in 5.8. Denied any signs of bleeding. Patient also presented with an anasarca, stated over past 2 days patient has had
increased exertional dyspnea that required him to stop and rest before continuing along. Patient recently hospitalized 04/26/2025 - 04/28/25 for decompensated AFTT and discharged to rehab at [facility]. In the ED patient vital signs showed BP of
105/53 RR 18 pulse 60 temp 97.6 satting at 100%. Dry weight was 63 kg and he was admitted at 67 kg. Labs showed a troponin of 0.03, which is chronically elevated, BNP 9980, hyponatremia 125 hypokalemia 3.3 elevated BUN 30, baseline creatinine
around 1.7 TBili 2.3, AST 89, ALT 52, Alk Phos 131. Chest x-ray showed mild CHF with small bilateral pleural effusions, patient was started on IV Lasix, Coumadin was held, cardiology was consulted. Cardiology recommended stopping aspirin since
patient is already on oral anticoagulation, cardiology agreed on holding anticoagulation and resuming once INR is below 2 with Eliquis. Patient was IV diuresed and input and output was monitored with daily weights. Over several hospital days
patient was diuresed with IV Lasix, GDMT was not available due to patient's BP and CKD. On hospital day 3 and discussion with the family, family requested palliative care consultation. On hospital day 3 cardiology recommended increasing Lasix to
80 mg IV. On hospital day 4 due to sustained elevation of INR cardiology recommended vitamin K x 1. INR improved to 2.2 on hospital day 7, and cardiology recommended transitioning to torsemide at discharge with follow-up to CHF clinic. In
discussion with family patient was requesting discharge given improving INR and improving work of breathing. At discharge patient's weight was around 63 kg vital signs showed BP 100/50, pulse of 63 RR 16 temp 97.7 satting at 97%. Patient will
follow-up labs outpatient before resuming Eliquis.
Important imaging findings :
05/22/2025 chest x-ray:
IMPRESSION:
Mild CHF with small bilateral pleural effusions.
05/22/2025 EKG:
SUSPECT ARM LEAD REVERSAL, INTERPRETATION ASSUMES NO REVERSAL
Atrial-sensed ventricular-paced rhythm with prolonged AV conduction
ABNORMAL ECG
WHEN COMPARED WITH ECG OF 26-Apr-2025 05:44,
VENT. RATE HAS INCREASED by 2 bpm
Procedure findings :
Discharge Plan
-
Patient Disposition: Home (Routine Discharge)
Discharge Diagnosis/Procedures: Acute on chronic heart failure exacerbation with ejection fraction 13%, anasarca
Supratherapeutic INR secondary to Coumadin
Atrial fibrillation
Rosacea
Anemia
Thrombocytopenia
Hypothyroidism
Chronic kidney disease
Insomnia
Transaminitis
Condition: Fair
Diet: 2 Gram Sodium and Restrict fluids to 48 oz
Activity: As tolerated
Driving Restrictions: As prior to admission
Bathing Restrictions: None
Blood Work: INR on 05/30/2025 or 05/31/25 at [facility]. BMP 05/31/25.Thyroid function tests 4-6 weeks
Other Services: VN
Specialty Instructions: Weigh Daily- Call MD for wt gain/loss 3 lbs overnight/5 lbs in 1 week
Activity Restrictions/Additional Instructions:
Wound Care Instructions
Gluteal cleft: clean with soap and water, Santyl to base of wound followed by small piece of alginate, cover with silicone foam. Change daily and prn soilage.
Barry wraps to legs knee high daily or resume compression stockings, can remove at bedtime
leg elevation when sitting
air chair cushion when sitting, can take upon discharge
increase protein in diet
If going to [facility] air mattress
Follow up at wound care center call for an appointment.
Palliative care evaluation
Instructions: *CBC Heart Failure Instructions
Referrals:
Jonathon Sosa MD [Non-Admitting Privileges] - 06/09/25
Pool Holloway MD [Family Provider, Family Practice]
Additional Discharge Medication Instructions: Do not start taking Eliquis until you get clearance to do so from cardiology after blood work is back. Stop Coumadin
Prescriptions:
New
torsemide 20 mg Tablet
40 mg PO DAILY Qty: 60 0RF
ferrous sulfate [FeroSul] 325 mg (65 mg iron) Tablet
325 mg PO DAILY Qty: 0 0RF
Eliquis 2.5 mg tablet
2.5 mg PO BID Qty: 60 0RF
polyethylene glycol 3350 [Miralax] 17 gram powder in packet
17 g PO DAILY Qty: 30 0RF
Continued
atorvastatin 80 MG tablet
80 mg PO QPM
cholecalciferol (vitamin D3) [Vitamin D3] 1,000 UNIT capsule
1,000 unit PO DAILY@1200
doxycycline hyclate 50 mg Capsule
50 mg PO DAILY@1200
acetaminophen [Tylenol Extra Strength] 500 mg Tablet
500 mg PO DAILY
levothyroxine [Synthroid] 75 mcg Tablet
75 mcg PO DAILY
amiodarone [Pacerone] 200 mg Tablet
200 mg PO DAILY Qty: 30 2RF
trazodone 50 mg Tablet
50 mg PO HS
Discontinued
aspirin 81 mg Tablet,Delayed Release (Dr/Ec)
81 mg PO DAILY
warfarin 1 mg Tablet
2 mg PO QPM
Rx Instructions:
HOLD 05/22/2025 AND 05/23/2025
furosemide 40 mg tablet
40 mg PO DAILY
Discharge Orders:
Discharge Patient (As Directed); Ordered 05/29/25
Ordered By: Mare Hinds
Discharge Date and Time
Print Language: POLISH
--- NOTE | 2025-05-30 10:51 | W.HF.CON ---
Heart Failure
- LV Function
Left ventricular function study result: LV Ejection fraction </= 35%
Ejection Fraction Percentage: 20
- ARNI
Patient already on ARNI: No
Heart Failure ARNI Contraindication: Hypotension, Worsening Renal Function
- ACEI/ARB
Patient already on ACEI/ARB: No
Heart Failure ACEI/ARB Contraindication: Hypotension, Worsening Renal Function
- Beta Raymond
Patient already on Evidence Based Beta Raymond: No
Heart Failure Evidence Based Beta Raymond: Hypotension, Mod/Severe Heart Failure
- Mineralocorticord Receptor Antagonist
Patient already on MRA: No
Heart Failure MRA Contraindication: Hypotension
- SGLT-2 Inhibitor
Patient already on SGLT-2 Inhibitor: No
Heart Failure SGLT-2 Inhibitor Contraindication: Patient Refusal
- Afib Anticoagulation
Patient already on Anticoagulation for Afib: Yes
- NYHA CHF Classification
NYHA CHF Classification Level: Class III - Symptoms w/ min exertion, interferes w/ nml daily activity
- ACC/AHA Stage
ACC/AHA Stage: Stage D: Advanced Heart Failure (palliative care added, goals of care discussed)
== END 2025-05-29 16:56 | disposition home health service (06) | DRG 291 ==
LOC: 4 EAST ACU 19:23
PROVIDERS: Nurse Practitioner Family; Physician Assistant; Student in an Organized Health Care Education/Training Program; ADMITTING PHYSICIAN Internal Medicine; ATTENDING PHYSICIAN Hospitalist; EMERGENCY PHYSICIAN Emergency Medicine; FAMILY PHYSICIAN Family Medicine; OTHER PHYSICIAN Internal Medicine
DX: I13.0 Hypertensive heart and chronic kidney disease with heart failure and stage 1 through stage 4 chronic kidney disease, or unspecified chronic kidney disease (principal); I50.23 Acute on chronic systolic (congestive) heart failure; L89.153 Pressure ulcer of sacral region, stage 3; E87.1 Hypo-osmolality and hyponatremia; E87.0 Hyperosmolality and hypernatremia; I48.92 Unspecified atrial flutter; E03.9 Hypothyroidism, unspecified; I25.10 Atherosclerotic heart disease of native coronary artery without angina pectoris; Z95.1 Presence of aortocoronary bypass graft; I48.0 Paroxysmal atrial fibrillation; Z85.46 Personal history of malignant neoplasm of prostate; Z92.3 Personal history of irradiation; N18.31 Chronic kidney disease, stage 3a; L71.9 Rosacea, unspecified; D64.9 Anemia, unspecified; D69.6 Thrombocytopenia, unspecified; G47.00 Insomnia, unspecified; R79.1 Abnormal coagulation profile; T45.515A Adverse effect of anticoagulants, initial encounter; Z79.890 Hormone replacement therapy; Z79.01 Long term (current) use of anticoagulants; Z79.82 Long term (current) use of aspirin; Z79.899 Other long term (current) drug therapy; Z95.810 Presence of automatic (implantable) cardiac defibrillator; E87.6 Hypokalemia; E78.00 Pure hypercholesterolemia, unspecified; E86.1 Hypovolemia; K76.1 Chronic passive congestion of liver
CPT/HCPCS: 36415; 71046; 80048; 80053; 82248; 82607; 82728; 83540; 83550; 83735; 83880; 84439; 84443; 84481; 84484; 85025; 85027; 85610; 85730; 87070; 93005; 96374; 97110; 97116; 97163; 99285

== ENCOUNTER → 2025-05-31 16:45 | Outpatient (REF) | payer MEDICARE, SELFPAY ==
[2025-05-31 17:55] LABS: Blood Urea Nitrogen 74 mg/dl (9-20); Calcium 8.4 mg/dl (8.4-10.2); Carbon Dioxide 29 mmol/L (22-30); Chloride 98 mmol/L (98-107); Glucose 116 mg/dl (70-99); Potassium 3.5 mmol/L (3.5-5.1); Sodium 133 mmol/L (135-145); eGFR 21.57
== END ==
LOC: CLAB 16:45
PROVIDERS: ATTENDING PHYSICIAN Internal Medicine Cardiovascular Disease; FAMILY PHYSICIAN Family Medicine
DX: I50.23 Acute on chronic systolic (congestive) heart failure (principal)
CPT/HCPCS: 36415; 80048